=== PATIENT | female | born 1960 | race Caucasian/White ===

== ENCOUNTER 2020-01-16 15:08 | Outpatient (REF) | payer OTHER, SELFPAY ==
[2020-01-16 16:40] LABS: Alanine Aminotransferase 20 U/L (0-31); Albumin Level 4.2 g/dL (3.5-5.0); Alkaline Phosphatase 95 U/L (39-117); Anion Gap 13 (12-20); Aspartate Amino Transferase 17 U/L (5-31); Bilirubin Total 0.3 mg/dL (0.0-1.0); Blood Urea Nitrogen 18 mg/dL (9-16); Calcium 9.4 mg/dL (8.4-10.2); Carbon Dioxide 29 mmol/L (22-29); Chloride 103 mmol/L (96-108); Estimated Glomerular Filt Rate > 60; Glucose Random 152 mg/dL (60-115); Potassium 4.7 mmol/l (3.3-5.1); Sodium 140 mmol/L (135-145); Total Protein 7.1 g/dL (6.5-8.0)
== END 2020-01-16 15:09 | disposition home or self-care (01) ==
LOC: HO.LAB 15:08
PROVIDERS: PCP Internal Medicine; Visit Provider Internal Medicine Endocrinology, Diabetes & Metabolism
DX: E11.9 Type 2 diabetes mellitus without complications (principal)
CPT/HCPCS: 80053

== ENCOUNTER 2020-06-14 11:08 | Outpatient (REF) | payer OTHER, SELFPAY ==
[2020-06-14 13:44] LABS: MANUAL DIFF FLAG NO
[2020-06-14 13:49] LABS: Basophils Absolute Auto 0.1 X10*3/uL (0.0-0.2); Basophils Percent Auto 0.6 % (0-2); Eosinophils Absolute Auto 0.2 X10*3/uL (0.0-0.4); Eosinophils Percent Auto 2.8 % (0-4); Hematocrit 45.6 % (37-47); Hemoglobin 13.9 g/dl (12.0-16.0); Imm Gran Abs Auto 0.07 X10*3/uL (0.00-0.03); Imm Gran Pct Auto 0.8 % (0.0-0.4); Lymphocytes Absolute Auto 2.4 X10*3/uL (1.2-4.9); Mean Corpuscular HGB Conc 30.5 g/dl (31.0-35.0); Mean Corpuscular Volume 65.7 fL (80-98); Mean Platelet Volume 10.5 fL (9.4-12.3); Monocytes Absolute Auto 0.5 X10*3/uL (0.1-1.2); Monocytes Percent Auto 5.8 % (2-11); Neutrophils Absolute Auto 5.4 X10*3/uL (2.0-8.3); Platelet Count 256 X10*3/uL (160-400); Red Blood Count 6.94 X10*6/uL (4.20-5.50); Red Cell Distribution Width 18.1 % (11.0-16.0); White Blood Count 8.7 X10*3/uL (4.8-10.8)
[2020-06-14 13:58] LABS: Estimated Average Glucose 160 mg/dL; Hemoglobin A1c % 7.2 %
[2020-06-14 14:02] LABS: Glucose Urine UA >=1000 MG/DL (NEG); Leukocyte Esterase Urine NEG (NEG); Nitrite Urine NEG (NEG); Specific Gravity - Urine 1.025 (1.005-1.025); Urine Blood NEG (NEG); Urine Ketones NEG (NEG); Urine Protein NEG (NEG-TRACE)
[2020-06-14 14:15] LABS: Creatinine Urine 54.13 mg/dL; Microalbum/Creatinine Ratio Ur 16.6 ug/mg cr
[2020-06-14 14:16] LABS: Appearance Urine HAZY; Color Urine YELLOW
[2020-06-14 14:17] LABS: Alanine Aminotransferase 15 U/L (0-31); Alkaline Phosphatase 93 U/L (39-117); Anion Gap 13 (12-20); Aspartate Amino Transferase 14 U/L (5-31); Bilirubin Total 0.4 mg/dL (0.0-1.0); Blood Urea Nitrogen 20 mg/dL (9-16); Calcium 8.9 mg/dL (8.4-10.2); Carbon Dioxide 29 mmol/L (22-29); Chloride 104 mmol/L (96-108); Cholesterol 137 mg/dL; Estimated Glomerular Filt Rate > 60; Glucose Fasting 113 mg/dL (60-99); HDL Cholesterol 42 mg/dL; LDL Cholesterol Calculated 81 mg/dl; Potassium 4.3 mmol/L (3.3-5.1); Sodium 142 mmol/L (135-145); Total Protein 6.9 g/dL (6.5-8.0); Triglycerides 74 mg/dL
[2020-06-14 14:28] LABS: RBC Urine 0 /HPF (0); Renal Epithelial Cells Urine 2+ /LPF; Squamous Epithelial Cell Urine 1+ /LPF
[2020-06-14 14:39] LABS: TSH reflex Free T4 0.61 uIU/mL (0.32-4.0)
== END 2020-06-14 11:09 | disposition home or self-care (01) ==
LOC: HO.10HDL 11:08
PROVIDERS: Visit Provider Internal Medicine
DX: E11.9 Type 2 diabetes mellitus without complications (principal); E78.00 Pure hypercholesterolemia, unspecified; K21.9 Gastro-esophageal reflux disease without esophagitis; E66.01 Morbid (severe) obesity due to excess calories
CPT/HCPCS: 36415; 80053; 80061; 81001; 82043; 83036; 84443; 85025; 87086

== ENCOUNTER → 2020-07-05 13:24 | Outpatient (BNVA) | payer OTHER, SELFPAY | PROVIDERS: PCP Internal Medicine; Visit Provider Internal Medicine Endocrinology, Diabetes & Metabolism | DX: E11.29 Type 2 diabetes mellitus with other diabetic kidney complication (principal); E11.21 Type 2 diabetes mellitus with diabetic nephropathy; Z79.4 Long term (current) use of insulin; R80.9 Proteinuria, unspecified; E78.5 Hyperlipidemia, unspecified; E66.01 Morbid (severe) obesity due to excess calories; Z68.41 Body mass index [BMI] 40.0-44.9, adult | CPT/HCPCS: 82947 ==

== ENCOUNTER → 2020-10-27 10:49 | Outpatient (BNVA) | payer OTHER, SELFPAY | PROVIDERS: PCP Internal Medicine; Visit Provider Internal Medicine Endocrinology, Diabetes & Metabolism | DX: E11.21 Type 2 diabetes mellitus with diabetic nephropathy (principal); E11.29 Type 2 diabetes mellitus with other diabetic kidney complication; E66.01 Morbid (severe) obesity due to excess calories; E78.5 Hyperlipidemia, unspecified; E78.00 Pure hypercholesterolemia, unspecified; G47.33 Obstructive sleep apnea (adult) (pediatric); R80.9 Proteinuria, unspecified; Z68.41 Body mass index [BMI] 40.0-44.9, adult; Z79.4 Long term (current) use of insulin; Z79.899 Other long term (current) drug therapy; Z87.891 Personal history of nicotine dependence | CPT/HCPCS: 82947 ==

== ENCOUNTER 2020-11-01 11:09 | Outpatient (REF) | payer OTHER, SELFPAY ==
[2020-11-01 13:26] LABS: MANUAL DIFF FLAG NO
[2020-11-01 13:36] LABS: Basophils Percent Auto 0.5 % (0-2); Eosinophils Absolute Auto 0.3 X10*3/uL (0.0-0.4); Eosinophils Percent Auto 3.4 % (0-4); Hematocrit 46.4 % (37-47); Hemoglobin 13.7 g/dl (12.0-16.0); Imm Gran Abs Auto 0.09 X10*3/uL (0.00-0.03); Imm Gran Pct Auto 1.1 % (0.0-0.4); Lymphocytes Absolute Auto 2.2 X10*3/uL (1.2-4.9); Lymphocytes Percent Auto 28.1 % (20-40); Mean Corpuscular HGB Conc 29.5 g/dl (31.0-35.0); Mean Corpuscular Hemoglobin 19.5 pg (27.0-33.0); Mean Corpuscular Volume 65.9 fL (80-98); Mean Platelet Volume 10.5 fL (9.4-12.3); Monocytes Absolute Auto 0.5 X10*3/uL (0.1-1.2); Monocytes Percent Auto 6.6 % (2-11); Neutrophils Absolute Auto 4.8 X10*3/uL (2.0-8.3); Neutrophils Percent Auto 60.3 % (45-73); Platelet Count 267 X10*3/uL (160-400); Red Blood Count 7.04 X10*6/uL (4.20-5.50); Red Cell Distribution Width 18.3 % (11.0-16.0); White Blood Count 7.9 X10*3/uL (4.8-10.8)
[2020-11-01 13:44] LABS: Estimated Average Glucose 157 mg/dL; Hemoglobin A1c % 7.1 %
[2020-11-01 13:50] LABS: Alanine Aminotransferase 15 U/L (0-31); Albumin Level 3.8 g/dL (3.5-5.0); Alkaline Phosphatase 83 U/L (39-117); Anion Gap 13 (12-20); Aspartate Amino Transferase 15 U/L (5-31); Bilirubin Total 0.5 mg/dL (0.0-1.0); Blood Urea Nitrogen 19 mg/dL (9-16); Calcium 9.2 mg/dL (8.4-10.2); Carbon Dioxide 28 mmol/L (22-29); Chloride 106 mmol/L (96-108); Cholesterol 158 mg/dL; Estimated Glomerular Filt Rate > 60; Glucose Fasting 134 mg/dL (60-99); HDL Cholesterol 41 mg/dL; LDL Cholesterol Calculated 104 mg/dl; Potassium 4.4 mmol/L (3.3-5.1); Sodium 143 mmol/L (135-145); Total Protein 6.7 g/dL (6.5-8.0); Triglycerides 65 mg/dL
[2020-11-01 14:11] LABS: TSH reflex Free T4 0.76 uIU/mL (0.32-4.0)
[2020-11-01 14:39] LABS: Glucose Urine UA >=1000 MG/DL (NEG); Leukocyte Esterase Urine NEG (NEG); Nitrite Urine NEG (NEG); PH 5.5 (5.0-8.0); Specific Gravity - Urine 1.025 (1.005-1.025); Urine Blood NEG (NEG); Urine Ketones NEG (NEG); Urine Protein NEG (NEG-TRACE)
[2020-11-01 14:47] LABS: Appearance Urine CLEAR; Color Urine YELLOW
[2020-11-01 15:33] LABS: RBC Urine 0-2 /HPF (0); Squamous Epithelial Cell Urine 4+ /LPF
== END 2020-11-01 11:10 | disposition home or self-care (01) ==
LOC: HO.10HDL 11:09
PROVIDERS: Visit Provider Internal Medicine
DX: E78.00 Pure hypercholesterolemia, unspecified (principal); E11.9 Type 2 diabetes mellitus without complications; E66.9 Obesity, unspecified
CPT/HCPCS: 36415; 80053; 80061; 81001; 81003; 83036; 84443; 85025

== ENCOUNTER 2021-04-04 11:19 | Outpatient (REF) | payer OTHER, SELFPAY ==
[2021-04-04 13:27] LABS: MANUAL DIFF FLAG NO
[2021-04-04 13:32] LABS: Basophils Absolute Auto 0.1 X10*3/uL (0.0-0.2); Basophils Percent Auto 0.6 % (0-2); Eosinophils Absolute Auto 0.3 X10*3/uL (0.0-0.4); Eosinophils Percent Auto 4.2 % (0-4); Hematocrit 43.2 % (37.0-47.0); Hemoglobin 13.1 g/dl (12.0-16.0); Imm Gran Abs Auto 0.08 X10*3/uL (0.00-0.03); Lymphocytes Absolute Auto 2.2 X10*3/uL (1.2-4.9); Lymphocytes Percent Auto 26.8 % (20-40); Mean Corpuscular HGB Conc 30.3 g/dl (31.0-35.0); Mean Platelet Volume 10.1 fL (9.4-12.3); Monocytes Absolute Auto 0.5 X10*3/uL (0.1-1.2); Monocytes Percent Auto 6.2 % (2-11); Neutrophils Percent Auto 61.2 % (45-73); Platelet Count 272 X10*3/uL (160-400); Red Blood Count 6.55 X10*6/uL (4.20-5.50); Red Cell Distribution Width 17.2 % (11.0-16.0); White Blood Count 8.1 X10*3/uL (4.8-10.8)
[2021-04-04 13:35] LABS: Appearance Urine HAZY; Color Urine YELLOW; Glucose Urine UA NEG (NEG); Leukocyte Esterase Urine NEG (NEG); Nitrite Urine NEG (NEG); Specific Gravity - Urine 1.025 (1.005-1.025); Urine Blood NEG (NEG); Urine Ketones NEG (NEG); Urine Protein NEG (NEG-TRACE)
[2021-04-04 13:40] LABS: Estimated Average Glucose 157 mg/dL; Hemoglobin A1c % 7.1 %
[2021-04-04 13:42] LABS: Alanine Aminotransferase 19 U/L (0-31); Albumin Level 3.8 g/dL (3.5-5.0); Alkaline Phosphatase 79 U/L (39-117); Anion Gap 12 (12-20); Aspartate Amino Transferase 16 U/L (5-31); Bilirubin Total 0.6 mg/dL (0.0-1.0); Blood Urea Nitrogen 14 mg/dL (9-16); Calcium 9.3 mg/dL (8.4-10.2); Carbon Dioxide 30 mmol/L (22-29); Chloride 102 mmol/L (96-108); Cholesterol 147 mg/dL; Estimated Glomerular Filt Rate > 60; Glucose Fasting 149 mg/dL (60-99); HDL Cholesterol 40 mg/dL; LDL Cholesterol Calculated 89 mg/dl; Potassium 4.2 mmol/L (3.3-5.1); Sodium 140 mmol/L (135-145); Total Protein 6.6 g/dL (6.5-8.0); Triglycerides 93 mg/dL
[2021-04-04 13:45] LABS: Creatinine Urine 87.34 mg/dL
== END 2021-04-04 11:20 | disposition home or self-care (01) ==
LOC: HO.10HDL 11:19
PROVIDERS: Visit Provider Internal Medicine
DX: E11.9 Type 2 diabetes mellitus without complications (principal); I10 Essential (primary) hypertension; E78.00 Pure hypercholesterolemia, unspecified
CPT/HCPCS: 36415; 80053; 80061; 81003; 82043; 83036; 84443; 85025

== ENCOUNTER 2021-08-03 11:31 | Outpatient (REF) | payer OTHER, SELFPAY ==
[2021-08-03 12:57] LABS: MANUAL DIFF FLAG NO
[2021-08-03 13:10] LABS: Basophils Absolute Auto 0.1 X10*3/uL (0.0-0.2); Basophils Percent Auto 0.6 % (0-2); Eosinophils Absolute Auto 0.3 X10*3/uL (0.0-0.4); Eosinophils Percent Auto 3.4 % (0-4); Hematocrit 45.3 % (37.0-47.0); Hemoglobin 13.7 g/dl (12.0-16.0); Imm Gran Abs Auto 0.05 X10*3/uL (0.00-0.03); Imm Gran Pct Auto 0.6 % (0.0-0.4); Lymphocytes Absolute Auto 2.3 X10*3/uL (1.2-4.9); Lymphocytes Percent Auto 29.8 % (20-40); Mean Corpuscular HGB Conc 30.2 g/dl (31.0-35.0); Mean Corpuscular Hemoglobin 19.9 pg (27.0-33.0); Mean Corpuscular Volume 65.9 fL (80.0-98.0); Monocytes Absolute Auto 0.6 X10*3/uL (0.1-1.2); Monocytes Percent Auto 7.7 % (2-11); Neutrophils Absolute Auto 4.5 x10*3/uL (2.0-8.3); Neutrophils Percent Auto 57.9 % (45-73); Platelet Count 272 X10*3/uL (160-400); Red Blood Count 6.87 X10*6/uL (4.20-5.50); White Blood Count 7.8 X10*3/uL (4.8-10.8)
[2021-08-03 13:16] LABS: Alanine Aminotransferase 17 U/L (0-31); Albumin Level 3.9 g/dL (3.5-5.0); Alkaline Phosphatase 77 U/L (39-117); Anion Gap 11 (12-20); Aspartate Amino Transferase 16 U/L (5-31); Bilirubin Total 0.5 mg/dL (0.0-1.0); Blood Urea Nitrogen 16 mg/dL (9-16); Calcium 9.3 mg/dL (8.4-10.2); Carbon Dioxide 30 mmol/L (22-29); Chloride 105 mmol/L (96-108); Cholesterol 146 mg/dL; Estimated Glomerular Filt Rate > 60; Glucose Fasting 157 mg/dL (60-99); HDL Cholesterol 39 mg/dL; LDL Cholesterol Calculated 93 mg/dl; Potassium 4.6 mmol/L (3.3-5.1); Sodium 141 mmol/L (135-145); Total Protein 6.8 g/dL (6.5-8.0); Triglycerides 74 mg/dL
[2021-08-03 13:19] LABS: Estimated Average Glucose 163 mg/dL; Hemoglobin A1c % 7.3 %
[2021-08-03 13:24] LABS: Appearance Urine CLEAR; Color Urine YELLOW; Glucose Urine UA >=1000 MG/DL (NEG); Leukocyte Esterase Urine NEG (NEG); Nitrite Urine NEG (NEG); Specific Gravity - Urine 1.015 (1.005-1.025); UACC Culture Trigger NO; Urine Blood 3+ (NEG); Urine Ketones NEG (NEG); Urine Protein NEG (NEG-TRACE)
[2021-08-03 13:36] LABS: Vitamin D 25-OH Total 38.3 ng/mL (>30)
[2021-08-03 14:45] LABS: Renal Epithelial Cells Urine 1+ /LPF; Squamous Epithelial Cell Urine 1+ /LPF
[2021-08-03 14:48] LABS: Oval Fat Bodies Urine NOTED
== END 2021-08-03 11:32 | disposition home or self-care (01) ==
LOC: HO.10HDL 11:31
PROVIDERS: Visit Provider Internal Medicine
DX: E78.00 Pure hypercholesterolemia, unspecified (principal); E11.9 Type 2 diabetes mellitus without complications; E55.9 Vitamin D deficiency, unspecified; I10 Essential (primary) hypertension
CPT/HCPCS: 36415; 80053; 80061; 81001; 81003; 82306; 83036; 84443; 85025

== ENCOUNTER 2021-09-26 16:35 | Outpatient (REF) | payer OTHER, SELFPAY ==
--- NOTE | ~2021-09-26 | XR_ITS ---
EXAMINATION: XR LUMBOSACRAL SPINE CLINICAL INFORMATION: Low back pain status post fall. COMPARISON: CT scan of the abdomen and pelvis dated 07/06/2016. TECHNIQUE: Three views of the lumbosacral spine. FINDINGS: There is normal lumbar lordosis and spinal alignment. Mild to moderate multilevel marginal osteophyte formation is seen. There is no acute fracture. The soft tissues are unremarkable. Multiple surgical clips overlie the pelvis. XR/XR lumbar spine 2-3V IMPRESSION: Mild to moderate multilevel degenerative changes without acute abnormality.
== END 2021-09-26 16:36 | disposition home or self-care (01) ==
LOC: HO.HMGCX 16:35
PROVIDERS: PCP Internal Medicine
DX: M54.50 Low back pain, unspecified (principal); W19.XXXA Unspecified fall, initial encounter
CPT/HCPCS: 72100

== ENCOUNTER 2021-11-15 13:52 | Outpatient (RCR) | payer OTHER, SELFPAY ==
[2021-11-15 14:04] VITALS: BP 122/60; PULSE 97; O2SAT 99
== END 2021-12-20 14:44 | disposition home or self-care (01) ==
LOC: HO.PTWFD 13:52
PROVIDERS: PCP Internal Medicine; Visit Provider Internal Medicine
DX: M54.50 Low back pain, unspecified (principal)
CPT/HCPCS: 97110; 97162; 97535

== ENCOUNTER 2022-01-24 09:46 | Outpatient (REF) | payer OTHER, SELFPAY ==
[2022-01-24 11:18] LABS: MANUAL DIFF FLAG NO
[2022-01-24 11:26] LABS: Basophils Absolute Auto 0.1 X10*3/uL (0.0-0.2); Basophils Percent Auto 0.6 % (0-2); Eosinophils Absolute Auto 0.2 X10*3/uL (0.0-0.4); Eosinophils Percent Auto 2.3 % (0-4); Hematocrit 40.9 % (37.0-47.0); Hemoglobin 12.6 g/dl (12.0-16.0); Imm Gran Abs Auto 0.09 X10*3/uL (0.00-0.03); Imm Gran Pct Auto 1.1 % (0.0-0.4); Lymphocytes Absolute Auto 1.9 X10*3/uL (1.2-4.9); Lymphocytes Percent Auto 22.5 % (20-40); Mean Corpuscular HGB Conc 30.8 g/dl (31.0-35.0); Mean Corpuscular Hemoglobin 20.1 pg (27.0-33.0); Mean Corpuscular Volume 65.2 fL (80.0-98.0); Mean Platelet Volume 10.6 fL (9.4-12.3); Monocytes Absolute Auto 0.6 X10*3/uL (0.1-1.2); Monocytes Percent Auto 6.5 % (2-11); Neutrophils Absolute Auto 5.7 x10*3/uL (2.0-8.3); Platelet Count 261 X10*3/uL (160-400); Red Blood Count 6.27 X10*6/uL (4.20-5.50); White Blood Count 8.4 X10*3/uL (4.8-10.8)
[2022-01-24 11:32] LABS: Estimated Average Glucose 177 mg/dL; Hemoglobin A1c % 7.8 %
[2022-01-24 11:59] LABS: Alanine Aminotransferase 16 U/L (0-31); Albumin Level 4.1 g/dL (3.5-5.0); Alkaline Phosphatase 81 U/L (39-117); Anion Gap 15 (12-20); Aspartate Amino Transferase 15 U/L (5-31); Bilirubin Total 0.6 mg/dL (0.0-1.0); Blood Urea Nitrogen 18 mg/dL (9-16); Calcium 9.4 mg/dL (8.4-10.2); Carbon Dioxide 29 mmol/L (22-29); Chloride 101 mmol/L (96-108); Cholesterol 157 mg/dL; Estimated Glomerular Filt Rate > 60; Glucose Fasting 161 mg/dL (60-99); HDL Cholesterol 41 mg/dL; LDL Cholesterol Calculated 97 mg/dl; Potassium 4.4 mmol/L (3.3-5.1); Sodium 141 mmol/L (135-145); Triglycerides 95 mg/dL
[2022-01-24 12:07] LABS: TSH reflex Free T4 1.23 uIU/mL (0.32-4.0); Vitamin D 25-OH Total 33.9 ng/mL (>30)
[2022-01-24 12:14] LABS: Urine Cytology See Pathology rpt
[2022-01-24 12:33] LABS: Appearance Urine Clear; Color Urine Yellow; Glucose Urine UA Negative (Negative); Leukocyte Esterase Urine Small (1+) (Negative); Nitrite Urine Negative (Negative); UMIC TRIGGER UACC YES; Urine Blood Negative (Negative); Urine Ketones Negative (Negative); Urine Protein Negative (Neg-Trace)
[2022-01-24 13:12] LABS: Creatinine Urine 43.89 mg/dL; Microalbumin Urine < 5.0 mg/L
[2022-01-24 13:32] LABS: Bacteria Urine None Seen (None Seen); Hyaline Casts Urine 0-2 /LPF (0-2); RBC Urine 0-2 /HPF (0-2); UACC Culture Trigger YES; WBC Urine 0-5 /HPF (0-5)
== END 2022-01-24 09:47 | disposition home or self-care (01) ==
LOC: HO.10HDL 09:46
PROVIDERS: Absent Provider Internal Medicine Endocrinology, Diabetes & Metabolism; Visit Provider Internal Medicine
DX: E78.00 Pure hypercholesterolemia, unspecified (principal); I10 Essential (primary) hypertension; R31.1 Benign essential microscopic hematuria; E55.9 Vitamin D deficiency, unspecified; E11.9 Type 2 diabetes mellitus without complications
CPT/HCPCS: 36415; 80053; 80061; 81001; 82043; 82306; 83036; 84443; 85025; 87086; 87147; 88112

== ENCOUNTER 2022-02-14 16:03 | Outpatient (REF) | payer OTHER, SELFPAY ==
--- NOTE | ~2022-02-14 | XR_ITS ---
EXAMINATION: XR CHEST CLINICAL INFORMATION: Cough. COMPARISON: None TECHNIQUE: 2 views of the chest were obtained. FINDINGS: No significant abnormality is noted involving the heart, lungs, mediastinum, bony thorax or soft tissues. XR/XR chest 2V IMPRESSION: No acute cardiopulmonary process.
== END 2022-02-14 16:04 | disposition home or self-care (01) ==
LOC: HO.XRAY 16:03
PROVIDERS: PCP Internal Medicine; Visit Provider Internal Medicine
DX: R05.9 Cough, unspecified (principal)
CPT/HCPCS: 71046

== ENCOUNTER 2022-06-01 11:37 | Outpatient (REF) | payer OTHER, SELFPAY ==
[2022-06-01 14:35] LABS: Estimated Average Glucose 214 mg/dL; Hemoglobin A1c % 9.1 %
[2022-06-01 15:15] LABS: Alanine Aminotransferase 15 U/L (0-31); Albumin Level 3.8 g/dL (3.5-5.0); Alkaline Phosphatase 87 U/L (39-117); Anion Gap 15 (12-20); Aspartate Amino Transferase 14 U/L (5-31); Bilirubin Total 0.5 mg/dL (0.0-1.0); Blood Urea Nitrogen 14 mg/dL (9-16); Calcium 9.2 mg/dL (8.4-10.2); Carbon Dioxide 29 mmol/L (22-29); Chloride 104 mmol/L (96-108); Cholesterol 162 mg/dL; Estimated Glomerular Filt Rate > 60; Glucose Fasting 190 mg/dL (60-99); HDL Cholesterol 36 mg/dL; LDL Cholesterol Calculated 113 mg/dl; Potassium 4.7 mmol/L (3.3-5.1); Sodium 143 mmol/L (135-145); Total Protein 6.7 g/dL (6.5-8.0); Triglycerides 67 mg/dL
== END 2022-06-01 11:38 | disposition home or self-care (01) ==
LOC: HO.10HDL 11:37
PROVIDERS: Visit Provider Internal Medicine
DX: E78.00 Pure hypercholesterolemia, unspecified (principal); E11.9 Type 2 diabetes mellitus without complications
CPT/HCPCS: 36415; 80053; 80061; 83036

== ENCOUNTER 2022-08-25 11:46 | Outpatient (REF) | payer OTHER, SELFPAY ==
[2022-08-25 13:24] LABS: MANUAL DIFF FLAG NO
[2022-08-25 13:32] LABS: Basophils Absolute Auto 0.1 X10*3/uL (0.0-0.2); Basophils Percent Auto 0.6 % (0-2); Eosinophils Absolute Auto 0.2 X10*3/uL (0.0-0.4); Eosinophils Percent Auto 2.6 % (0-4); Hematocrit 43.5 % (37.0-47.0); Hemoglobin 13.3 g/dl (12.0-16.0); Imm Gran Abs Auto 0.09 X10*3/uL (0.00-0.03); Imm Gran Pct Auto 1.1 % (0.0-0.4); Lymphocytes Absolute Auto 2.3 X10*3/uL (1.2-4.9); Lymphocytes Percent Auto 27.5 % (20-40); Mean Corpuscular HGB Conc 30.6 g/dl (31.0-35.0); Mean Corpuscular Hemoglobin 19.8 pg (27.0-33.0); Mean Platelet Volume 10.4 fL (9.4-12.3); Monocytes Absolute Auto 0.5 X10*3/uL (0.1-1.2); Monocytes Percent Auto 6.6 % (2-11); Neutrophils Absolute Auto 5.1 x10*3/uL (2.0-8.3); Neutrophils Percent Auto 61.6 % (45-73); Platelet Count 272 X10*3/uL (160-400); Red Blood Count 6.71 X10*6/uL (4.20-5.50); Red Cell Distribution Width 17.2 % (11.0-16.0); White Blood Count 8.2 X10*3/uL (4.8-10.8)
[2022-08-25 13:32] LABS: Appearance Urine Hazy; Color Urine Yellow; Glucose Urine UA Negative (Negative); Leukocyte Esterase Urine Small (1+) (Negative); Nitrite Urine Negative (Negative); Specific Gravity - Urine 1.025 (1.005-1.025); UMIC TRIGGER UACC YES; Urine Blood Trace (Negative); Urine Ketones Negative (Negative); Urine Protein Negative (Neg-Trace)
[2022-08-25 13:33] LABS: Mean Corpuscular Volume 64.8 fL (80.0-98.0)
[2022-08-25 13:40] LABS: UACC Culture Trigger YES
[2022-08-25 13:41] LABS: Bacteria Urine None Seen (None Seen); Hyaline Casts Urine 0-2 /LPF (0-2); RBC Urine 0-2 /HPF (0-2); Renal Epithelial Cells Urine Present
[2022-08-25 13:50] LABS: Estimated Average Glucose 177 mg/dL; Hemoglobin A1c % 7.8 %
[2022-08-25 13:53] LABS: Creatinine Urine 131.24 mg/dL; Microalbum/Creatinine Ratio Ur 24.3 ug/mg cr
[2022-08-25 13:55] LABS: Alanine Aminotransferase 15 U/L (0-31); Albumin Level 3.8 g/dL (3.5-5.0); Alkaline Phosphatase 79 U/L (39-117); Anion Gap 14 (12-20); Aspartate Amino Transferase 13 U/L (5-31); Bilirubin Total 0.5 mg/dL (0.0-1.0); Blood Urea Nitrogen 18 mg/dL (9-16); Calcium 9.3 mg/dL (8.4-10.2); Carbon Dioxide 28 mmol/L (22-29); Chloride 106 mmol/L (96-108); Cholesterol 162 mg/dL; Estimated Glomerular Filt Rate > 60; Glucose Fasting 169 mg/dL (60-99); HDL Cholesterol 36 mg/dL; LDL Cholesterol Calculated 113 mg/dl; Potassium 4.6 mmol/L (3.3-5.1); Sodium 143 mmol/L (135-145); Total Protein 6.7 g/dL (6.5-8.0); Triglycerides 68 mg/dL
[2022-08-25 14:10] LABS: TSH reflex Free T4 0.81 uIU/mL (0.32-4.0); Vitamin D 25-OH Total 36.3 ng/mL (>30)
== END 2022-08-25 11:47 | disposition home or self-care (01) ==
LOC: HO.10HDL 11:46
PROVIDERS: Visit Provider Internal Medicine
DX: E78.00 Pure hypercholesterolemia, unspecified (principal); E11.9 Type 2 diabetes mellitus without complications; E55.9 Vitamin D deficiency, unspecified; I10 Essential (primary) hypertension; R82.90 Unspecified abnormal findings in urine
CPT/HCPCS: 36415; 80053; 80061; 81001; 82043; 82306; 83036; 84443; 85025; 87086

== ENCOUNTER 2022-08-31 13:47 | Outpatient (REF) | payer OTHER, SELFPAY ==
--- NOTE | ~2022-08-31 | US_ITS ---
EXAMINATION: US RETROPERITONEAL LIMITED (RENAL ONLY) CLINICAL INFORMATION: Other microscopic hematuria. COMPARISON: CT abdomen and pelvis without contrast 07/06/2016. TECHNIQUE: Real-time imaging of the kidneys. FINDINGS: RIGHT KIDNEY: 11.5 x 5.1 x 5.6 cm (SAG x AP x TRV). The kidney is normal in size, contour, and echogenicity. Right renal parenchymal cortical scarring. No renal calculi or hydronephrosis. 2.2 cm benign-appearing renal cyst, no follow-up imaging recommended. LEFT KIDNEY: 12.1 x 6.1 x 6.1 cm (SAG x AP x TRV). The kidney is normal in size, contour, and echogenicity. Renal cortical thickness is normal. No calculi or focal parenchymal lesions. No hydronephrosis. US/US renal BI IMPRESSION: 1. No hydronephrosis or nephrolithiasis. 2. Right renal parenchymal cortical scarring.
== END 2022-08-31 13:48 | disposition home or self-care (01) ==
LOC: HO.HMGCX 13:47
PROVIDERS: PCP Internal Medicine; Visit Provider Internal Medicine
DX: R31.29 Other microscopic hematuria (principal)
CPT/HCPCS: 76775

== ENCOUNTER 2022-11-08 13:06 | Outpatient (AMB) | payer OTHER, SELFPAY ==
[2022-11-08 13:13] VITALS: BP 122/74; PULSE 92; O2SAT 97; BMI 44.5
--- NOTE | 2022-11-08 13:13 | A.OFFVIS_ITS ---
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 Pt reports that she was diagnosed with SELENE in 2008 and has been using CPAP. However, she does not use the CPAP regularly. It is not comfortable, having hard time using the mask, also feels the pressure is low, too. She did not have a repeat sleep study done. Pt reports that she gained about 30 lb since the last sleep study. She feels tired all day long. Pt's home care company is [employer]. Sleep questionnaire: Have you ever been diagnosed with a sleep disorder? SELENE, severe degree. Have you ever had a sleep study in the past? Yes, in 2008. Have you ever been treated for a sleep disorder? CPAP. Do you take medications for a sleep disorder? Ambien 10 mg occasionally. Do you snore? Yes. Do you wake up gasping at night? No. Do you have episodes of apneas? Yes. If yes, are they witnessed? Yes. Do you have episodes of nocturnal chest pain or dyspnea? No. Do you have difficulty initiating sleep? Yes, sometimes. Do you have difficulty maintaining sleep? Yes, sometimes. Do you wake up tired? Yes. Do you have headaches upon awakening? Yes, sometimes. Do you wake up with dry mouth or throat? Yes. Do you have GERD? Yes. Do you have nocturia? Yes. Do you have nocturnal leg cramps? No. Do you have symptoms of restless legs? No. Do you act out your dreams? No. Sleep hygiene questionnaire: What is your usual sleep routine? Usual bedtime is at 11 pm; Usual wake up time is at 8 am . Do you take naps? Yes, 15-20 min. Is your sleep environment cool, dark, and quiet? Yes. Do you exercise? Treadmill, twice a week for an hour. Do you take caffeine or other stimulants? No. Do you use electronics in bed? Yes. What is your work schedule? Random. Hypersomnolence questionnaire: Do you have daytime tiredness or fatigue? Yes. Do you easily fall asleep when inactive? Yes. Have you ever had episodes of sudden weakness? No. Have you ever had episodes of sudden weakness associated with strong emotions? No. 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) Paternal Aunt No problems noted. Maternal Uncle No problems noted. Mother Cardiovascular disease Liver cancer Breast cancer Father No problems noted. Maternal Aunt No problems noted. Brother Lung cancer Brain cancer Social History (Updated 11/08/22 @ 13:20 by Rosa Blum 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 Cognitive needs: No Hearing needs: No Vision needs: Yes Review of Systems Const All systems reviewed & are unremarkable except as noted in HPI and below ENT Reports Normal hearing present Neuro Reports Normal hearing present Physical Exam Vital Signs: Last Vital Signs Pulse 92 11/08/22 13:13 BP 122/74 11/08/22 13:13 Pulse Ox 97 11/08/22 13:13 Oxygen Delivery Method Room Air 11/08/22 13:13 BMI result Body Mass Index 44.5 Const General: cooperative Nutritional Appearance: obese Orientation/consciousness: patient oriented x3 HEENT Throat: Yes other (mallampati grade 4) Neck Neck: Yes full ROM and Yes supple Resp Effort & Inspection: normal respiratory effort and able to speak in complete sentences Neuro General: patient oriented x3, gait normal, moves all extremities and no focal motor deficits Cranial nerves: Yes Bilaterally intact EOM present, Yes Normal facial strength present, Yes Midline tongue present, Yes Symmetric palate elevation present, Yes Normal hearing present, Yes Ability to bilaterally rotate head present and Yes Ability to bilaterally elevate shoulders present Cognition (Neuro): normal cognition Gait exam (Neuro): Normal gait present Motor exam (neuro): 5/5 motor strength present throughout Psych Appearance: grossly normal Mental Status: mental status grossly normal Speech and movement: Normal speech and movement present Affect: normal affect Attitude: cooperative Assessment & Plan Assessment & Plan (1) Obstructive sleep apnea: Comment: The last sleep study was in 2008. Severe degree of sleep apnea. AHI was 72/hr and the oxygen esau was 82% Code(s): G47.33 - Obstructive sleep apnea (adult) (pediatric) (2) Morbid obesity with BMI of 40.0-44.9, adult: Code(s): E66.01 - Morbid (severe) obesity due to excess calories; Z68.41 - Body mass index [BMI] 40.0-44.9, adult Plan Pt is advised to undergo in lab sleep study to assess for sleep apnea. Will f/u with pt after study to discuss results and appropriate treatment options. Sleep hygiene education provided. Limit electronic use before bedtime. Wt reduction advised. Pt to call with any worsening concerns or questions. Orders: Orders RT PSG in-lab sleep study Today E11.21 - Type 2 diabetes mellitus with diabetic nephropathy, E66.01 - Morbid (severe) obesity due to excess calories, G47.00 - Insomnia, unspecified, G47.33 - Obstructive sleep apnea (adult) (pediatric), Z68.41 - Body mass index [BMI] 40.0-44.9, adult Coding Level of Care Code New Pt Level 4 (64362) Diagnoses Obstructive sleep apnea G47.33 Morbid obesity with BMI of 40.0-44.9, adult E66.01; Z68.41
== END 2022-11-08 13:55 | disposition home or self-care (01) ==
PROVIDERS: Visit Provider Nurse Practitioner Family
DX: G47.33 Obstructive sleep apnea (adult) (pediatric) (principal); E66.01 Morbid (severe) obesity due to excess calories; Z68.41 Body mass index [BMI] 40.0-44.9, adult
CPT/HCPCS: 99204

== ENCOUNTER → 2022-11-08 13:06 | Outpatient (BNVA) | payer OTHER, SELFPAY | PROVIDERS: Visit Provider Nurse Practitioner Family ==

== ENCOUNTER 2022-12-08 10:23 | Outpatient (REF) | payer OTHER, SELFPAY ==
[2022-12-08 10:42] LABS: MANUAL DIFF FLAG NO
[2022-12-08 10:52] LABS: Basophils Absolute Auto 0.1 X10*3/uL (0.0-0.2); Basophils Percent Auto 0.6 % (0-2); Eosinophils Absolute Auto 0.2 X10*3/uL (0.0-0.4); Eosinophils Percent Auto 2.6 % (0-4); Hematocrit 44.2 % (37.0-47.0); Hemoglobin 13.5 g/dl (12.0-16.0); Imm Gran Pct Auto 1.2 % (0.0-0.4); Lymphocytes Absolute Auto 2.2 X10*3/uL (1.2-4.9); Lymphocytes Percent Auto 25.9 % (20-40); Mean Corpuscular HGB Conc 30.5 g/dl (31.0-35.0); Mean Corpuscular Volume 65.4 fL (80.0-98.0); Mean Platelet Volume 9.7 fL (9.4-12.3); Monocytes Absolute Auto 0.6 X10*3/uL (0.1-1.2); Monocytes Percent Auto 7.3 % (2-11); Neutrophils Absolute Auto 5.3 x10*3/uL (2.0-8.3); Neutrophils Percent Auto 62.4 % (45-73); Platelet Count 261 X10*3/uL (160-400); Red Blood Count 6.76 X10*6/uL (4.20-5.50); Red Cell Distribution Width 17.8 % (11.0-16.0); White Blood Count 8.5 X10*3/uL (4.8-10.8)
[2022-12-08 11:13] LABS: Estimated Average Glucose 177 mg/dL; Hemoglobin A1c % 7.8 % (<6.0)
[2022-12-08 11:29] LABS: Alanine Aminotransferase 14 U/L (0-31); Alkaline Phosphatase 84 U/L (39-117); Anion Gap 14 (12-20); Aspartate Amino Transferase 14 U/L (5-31); Bilirubin Total 0.5 mg/dL (0.0-1.0); Blood Urea Nitrogen 23 mg/dL (9-16); Calcium 10.1 mg/dL (8.4-10.2); Carbon Dioxide 25 mmol/L (22-29); Chloride 104 mmol/L (96-108); Cholesterol 172 mg/dL (<200); Estimated Glomerular Filt Rate > 60; Glucose Fasting 207 mg/dL (60-99); HDL Cholesterol 41 mg/dL (>40); LDL Cholesterol Calculated 114 mg/dL (<100); Potassium 4.7 mmol/L (3.3-5.1); Sodium 138 mmol/L (135-145); Total Protein 7.3 g/dL (6.5-8.0); Triglycerides 85 mg/dL (<150)
[2022-12-08 11:46] LABS: TSH reflex Free T4 0.97 uIU/mL (0.32-4.0); Vitamin D 25-OH Total 38.8 ng/mL (>30)
[2022-12-08 11:56] LABS: Folate 6.4 ng/mL (> or = 4.0); Vitamin B12 441 pg/mL (200-900)
[2022-12-08 12:11] LABS: Urine Cytology See Pathology rpt
[2022-12-08 12:37] LABS: Appearance Urine Clear; Color Urine Yellow; Glucose Urine UA Negative (Negative); Leukocyte Esterase Urine Moderate (2+) (Negative); Nitrite Urine Negative (Negative); PH 5.5 (5.0-9.0); UMIC TRIGGER UACC YES; Urine Blood Negative (Negative); Urine Ketones Negative (Negative); Urine Protein Negative (Neg-Trace)
[2022-12-08 12:39] LABS: Bacteria Urine None Seen (None Seen); Hyaline Casts Urine 0-2 /LPF (0-2); RBC Urine 0-2 /HPF (0-2); UACC Culture Trigger YES
[2022-12-08 13:03] LABS: Microalbum/Creatinine Ratio Ur 13.5 ug/mg cr (<30)
== END 2022-12-08 10:24 | disposition home or self-care (01) ==
LOC: HO.LAB 10:23
PROVIDERS: PCP Internal Medicine; Visit Provider Internal Medicine
DX: E53.8 Deficiency of other specified B group vitamins (principal); E55.9 Vitamin D deficiency, unspecified; I10 Essential (primary) hypertension; E11.9 Type 2 diabetes mellitus without complications; R31.1 Benign essential microscopic hematuria; E78.00 Pure hypercholesterolemia, unspecified
CPT/HCPCS: 36415; 80053; 80061; 81001; 82043; 82306; 82570; 82607; 82746; 83036; 84443; 85025; 87086; 88112

== ENCOUNTER 2022-12-18 14:13 | Outpatient (AMB) | payer OTHER, SELFPAY ==
[2022-12-18 14:15] VITALS: BP 128/62; PULSE 84; O2SAT 99; BMI 43.7
--- NOTE | 2022-12-18 14:15 | MHC.PC.OV ---
Vital Signs 12/18/22 14:15 Height 5 ft Weight 224 lb BMI 43.7 BP 128/62 Blood Pressure Location Rt brachial Position Sitting Pulse 84 Pulse Source Pulse Oximeter Temp Source Skin Pulse Oximetry (%) 99 Oxygen Delivery Method Room Air Intake Visit Reasons: DM, hyperlipidemia, HTN, cervical cancer screen Rectangular Tank Cooper Required: No Allergies IVP dye Allergy (Mild, Uncoded 12/18/22 15:16) Nausea Medication List - Last Reconciled 12/18/22 by Salvatore Gramajo MD blood sugar diagnostic As directed flash glucose scanning reader (FreeStyle Tara 14 Day Acra) As directed flash glucose sensor (FreeStyle Tara 14 Day Sensor kit) every 14 days insulin glargine-lixisenatide 100 unit-33 mcg/mL (Soliqua 100/33) 26 units before breakfast and 26 units before dinner subcut .Twice a day; lorazepam Take 1 tablet 30 minutes before boarding plane (as needed for anxiety). May repeat x 1 dose after 10 to 15 minutes if needed. 2 days metformin ER 1,500 mg PO BID omeprazole 40 mg PO DAILY pen needle, diabetic (BD Brie 2nd Gen Pen Needle) Twice a day pravastatin 10 mg PO BEDTIME 90 days zolpidem 10 mg PO BEDTIME PRN 30 days Tobacco use date assessed: 12/18/22 Dental Screening Dental Screen Date: 12/18/22 Did you have a dental visit in the last 12 months?: Yes Did you have a dental problem in the last 6 months where you did not have access to dental care?: No Was dental information given to patient?: Patient has dentist HPI DM, hyperlipidemia, HTN, cervical cancer screen HPI Details Patient comes in today for her follow up visit States that she feels okay Still has recurrent low back pain but states that her back pain is mostly manageable Has noticed on and off swelling over her ankles and feet lately; notes (+) pain and discomfort when the swelling occurs and that her symptoms tend to occur more often when she is up on her feet a lot She denies any headaches or dizziness Denies any chest pains, no SOB No nausea/vomiting, no abdominal pain No change in bowel habits noted Would like to get Rx for Lorazepam - states that she is due to fly out to [place] next month with her and is having a lot of anxiety regarding the long plane flight Had her follow up labs done about 10 days ago - to discuss her results Adds that she had to reschedule her previous appt with Dr. Biswas as she was out of town at the time of her appt [facility] Medical History Alpha thalassemia trait Diabetic nephropathy associated with type 2 diabetes mellitus residential (current) use of insulin Morbid obesity with BMI of 40.0-44.9, adult Insomnia GERD without esophagitis Obstructive sleep apnea Thalassemia trait History of left breast cancer (~2000) Pure hypercholesterolemia Diabetes mellitus Dyslipidemia Diabetes type 2, controlled Surgical History Hx of ventral hernia repair (~2003) S/P bilateral oophorectomy (~2002) S/P radical vaginal hysterectomy (~1989) Family History Paternal Aunt No problems noted. Maternal Uncle No problems noted. Mother Cardiovascular disease Liver cancer Breast cancer Father No problems noted. Maternal Aunt No problems noted. 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 1. Little interest or pleasure in doing things: not at all 2. Feeling down, depressed, or hopeless: not at all 3. Trouble falling or staying asleep, or sleeping too much: not at all 4. Feeling tired or having little energy: not at all 5. Poor appetite or overeating: not at all 6. Feeling bad about yourself - or that you are a failure or have let yourself or your family down: not at all 7. Trouble concentrating on things, such as reading the newspaper or watching television: not at all 8. Moving or speaking so slowly that other people could have noticed. Or the opposite - being so fidgety or restless that you have been moving around a lot more than usual: not at all 9. Thoughts that you would be better off or of hurting yourself in some way: not at all Total score: 0 Depression Screening Interpretation: Negative 40634 - PHQ-9 Billing: Yes Source: Developed by Drs. Jimmy Richey, Angelica Calderon, Hernnadez Gold and colleagues, with an educational joi from [employer]. Thrive Questionnaire Date Thrive assessed: 08/28/22 AUDIT C Alcohol Use Questionnaire (AUDIT-C) 1. How often do you have a drink containing alcohol?: Never 3. How often do you have six or more drinks on one occasion?: Never Total Score: 0 Score Reviewed/Action Taken: Yes ANUPAMA-7 AMB Questionnaire ANUPAMA-7 Date ANUPAMA - 7 assessed: 08/28/22 Source: Developed by Drs. Jimmy Richey, Angelica Calderon, Hernandez Gold and colleagues, with an educational joi from [employer]. Review of Systems Const Reports difficulty sleeping, Reports fatigue, Denies fever(s) and Denies headache(s) ENT Denies dysphagia, Denies dizziness, Denies otalgia, Denies headache(s), Denies odynophagia and Denies sore throat Card Denies chest pain, Denies palpitations and Denies dyspnea Resp Denies chest congestion, Denies cough and Denies dyspnea GI Denies abdominal pain, Denies constipation, Denies dysphagia, Denies heartburn, Denies diarrhea, Denies nausea, Denies odynophagia and Denies vomiting Denies difficulty voiding, Denies nocturia and Denies dysuria Musc Reports back pain (over the lower back - on and off) Neuro Denies dizziness and Denies headache(s) Endo Reports fatigue and Denies palpitations Lg/Lymph Details: (+) on and off swelling and pain over her ankles and feet lately Physical exam (Primary Care) Vital Signs: Last Vital Signs Pulse 84 12/18/22 14:15 BP 128/62 12/18/22 14:15 Pulse Ox 99 12/18/22 14:15 Oxygen Delivery Method Room Air 12/18/22 14:15 BMI result Body Mass Index 43.7 Tobacco/Smoking Status: Tobacco use Status Tobacco use date assessed 12/18/22 12/18/22 14:16 Patient Tobacco Use Status Former Tobacco user 12/18/22 14:16 Tobacco use type Cigarette 12/18/22 14:16 e-Cigarette/Vaping Use Never Used 12/18/22 14:16 PHQ-9: PHQ-9 Score PHQ-9: Total score 0 12/18/22 19:19 Depression Screening Interpretation: Negative Thrive Assessment: Date of Thrive Assessment Date Thrive assessed 08/28/22 12/18/22 14:16 Const General: no acute distress and alert HENMT Ears: TM's normal bilaterally and EAC's normal Throat: Yes posterior oropharynx normal and Yes tonsils normal (no TP congestion noted) Neck Neck: Yes no lymphadenopathy and Yes supple Resp Auscultation: clear to auscultation bilaterally, no rales and no wheezes Cardio Rate: regular rate Rhythm: regular rhythm Heart sounds: no murmurs GI Palpation (GI): Soft to palpation and nontender Auscultation: normal bowel sounds Back/Spine/Pelvis Thoracic/Lumbar Spine: lumbar spinal tenderness Extrem Other: (+) prominent patches of varicosities noted over both lower legs General: No clubbing, No cyanosis and Yes edema (1+ bipedal edema) Assessment and Plan Assessment & Plan (1) Diabetes mellitus: Code(s): E11.9 - Type 2 diabetes mellitus without complications Qualifiers: Diabetes mellitus complication status: without complication Diabetes mellitus intermediate accountant insulin use: without intermediate use Diabetes mellitus type: type 2 Qualified Code(s): E11.9 - Type 2 diabetes mellitus without complications Plan: HgbA1c was at 7.8% on her labs done a few days ago (was at 9.1% previously) - goal is < 7.0% Reinforced diabetic diet Continue Metformin ER 1000 mg BID and Soliqua 100-33 units-mcg/ml 24 units in AM and 20 units in PM; Jardiance was discontinued by endocrinology a few months ago due to frequent yeast infections Was seeing endocrinology (Dr. Rosenthal) in the past; she has been referred back to endocrinology but had to cancel her previous appt with Dr. Biswas as she was out of town back then She is now rescheduled to see Dr. Biswas in February 2023 (2) Pure hypercholesterolemia: Code(s): E78.00 - Pure hypercholesterolemia, unspecified Plan: Results of her labs done a few days ago reviewed and discussed with patient Reinforced low cholesterol diet Was on Pravastatin 10 mg QD in the past but states that she stopped taking this almost 2 years ago now - is not sure why but thinks that she just never refilled it when her Rx ran out Will start her back on Pravastatin 10 mg QD - is advised that being a diabetic, her LDL cholesterol should ideally be closer to 70 mg/dL Advised also that current diabetes treatment guidelines also recommend being on a statin Rx irregardless of one's cholesterol levels Will recheck her labs and fasting lipid in 3 to 4 months for follow up (3) Obstructive sleep apnea: Comment: The last sleep study was in 2008. Severe degree of sleep apnea. AHI was 72/hr and the oxygen esau was 82% Code(s): G47.33 - Obstructive sleep apnea (adult) (pediatric) Plan: Has been using her CPAP device daily again when sleeping at night but feels that it has not been helping States that she has not had a sleep study done in over 10 years now and is wondering if her requirements have changed She was referred to and is now seeing Sleep Medicine for follow up and management of her sleep apnea (4) GERD without esophagitis: Code(s): K21.9 - Gastro-esophageal reflux disease without esophagitis Plan: Dietary restrictions reinforced Continue Pantoprazole 40 mg QD Follow-up with GI as scheduled (5) Microscopic hematuria: Code(s): R31.29 - Other microscopic hematuria Plan: Is currently asymptomatic but patient still has trace amount of blood in her urine at times Renal US done a few months ago revealed no hydronephrosis or nephrolithiasis; (+) right renal parenchymal cortical scarring noted (6) Alpha thalassemia trait: Code(s): D56.3 - Thalassemia minor Plan: Advised that her H/H is normal but her CBC always present with microcytosis and hypochromia with a slightly elevated RBC count No intervention is needed and will just continue to monitor her CBC regularly (7) Varicose veins of bilateral lower extremities with pain: Code(s): I83.813 - Varicose veins of bilateral lower extremities with pain Plan: Will refer her to vascular surgery for further evaluation and management (8) Insomnia: Code(s): G47.00 - Insomnia, unspecified Qualifiers: Insomnia type: primary Qualified Code(s): F51.01 - Primary insomnia Plan: Sleep hygiene reinforced Continue Zolpidem 10 mg Q HS PRN (9) Morbid obesity with BMI of 40.0-44.9, adult: Code(s): E66.01 - Morbid (severe) obesity due to excess calories; Z68.41 - Body mass index [BMI] 40.0-44.9, adult Plan: Reinforced diet/exercise as tolerated/lose weight Plan To return in 3 months for her annual physical examination Orders: Orders Complete Blood Count Auto Diff 3 Months I10 - Essential (primary) hypertension Lipid Panel 3 Months E78.00 - Pure hypercholesterolemia, unspecified TSH reflex Free T4 3 Months E78.00 - Pure hypercholesterolemia, unspecified Microalbumin, Random (w Creat) 3 Months E11.9 - Type 2 diabetes mellitus without complications Comprehensive [place]. Panel Fast 3 Months E78.00 - Pure hypercholesterolemia, unspecified Hemoglobin A1c 3 Months E11.9 - Type 2 diabetes mellitus without complications UA CC w/rflx Micro + Cult 3 Months R30.0 - Dysuria Vitamin D 25-OH Total 3 Months E55.9 - Vitamin D deficiency, unspecified Referrals Vascular Surgery Referral I83.813 - Varicose veins of bilateral lower extremities with pain Medications: New lorazepam Take 1 tablet 30 minutes before boarding plane (as needed for anxiety). May repeat x 1 dose after 10 to 15 minutes if needed. 2 days 5 tabs 0RF anxiety regarding flying on plane Refilled pravastatin 10 mg PO BEDTIME 90 days 90 tabs 3RF E78.5 - Hyperlipidemia, unspecified Coding Level of Care Code Est Pt Level 4 (85085) Diagnoses Type 2 diabetes mellitus without complication, without long-term current use of insulin E11.9 Diabetes mellitus complication status: without complication Diabetes mellitus intermediate accountant insulin use: without intermediate accountant use Diabetes mellitus type: type 2 Pure hypercholesterolemia E78.00 Obstructive sleep apnea G47.33 GERD without esophagitis K21.9 Microscopic hematuria R31.29 Alpha thalassemia trait D56.3 Varicose veins of bilateral lower extremities with pain I83.813 Primary insomnia F51.01 Insomnia type: primary Morbid obesity with BMI of 40.0-44.9, adult E66.01; Z68.41
== END 2022-12-18 15:20 | disposition home or self-care (01) ==
PROVIDERS: PCP Internal Medicine; Visit Provider Internal Medicine
DX: E11.9 Type 2 diabetes mellitus without complications (principal); K21.9 Gastro-esophageal reflux disease without esophagitis; E66.01 Morbid (severe) obesity due to excess calories; Z68.41 Body mass index [BMI] 40.0-44.9, adult; E78.00 Pure hypercholesterolemia, unspecified; R31.29 Other microscopic hematuria; G47.33 Obstructive sleep apnea (adult) (pediatric); D56.3 Thalassemia minor; I83.813 Varicose veins of bilateral lower extremities with pain; F51.01 Primary insomnia
CPT/HCPCS: 99214

== ENCOUNTER 2023-02-13 13:27 | Outpatient (AMB) | payer OTHER, SELFPAY ==
[2023-02-13 13:26] VITALS: BMI 43.7
--- NOTE | 2023-02-13 13:26 | A.OFFVIS_ITS ---
Intake Vital Signs 02/13/23 13:26 Height 5 ft Weight 224 lb BMI 43.7 Intake Visit Reasons: CAR CHASER/ PCP referral for VV w/ pain Intake Note: CAR CHASER for bilateral LE swelling and VV. Pt states that left LE swelling is worse than right. 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 Pt states she has large varicose veins w/ fatigue when she is standing for long periods of time. Accompanied by: Self / Same As Patient Allergies IVP dye Allergy (Mild, Uncoded 02/13/23 13:33) Nausea HPI CAR CHASER/ PCP referral for VV w/ pain HPI Details Very pleasant 62-year-old female patient presents for painful varicose veins. Complaints include pain over varicosities, swelling of lower extremities, cramping, fatigue, and heaviness of the lower extremities. It has been affecting there daily activities including walking. It is noted more so in left leg. Patient denies any previous venous surgery or injections. Patient denies any history of DVT/ PE. Patient denies any history of phlebitis. Trial of compression includes - [id number] They now present for vascular evaluation regarding their varicose veins. [facility] Medical History Alpha thalassemia trait Diabetic nephropathy associated with type 2 diabetes mellitus group home (current) use of insulin Morbid obesity with BMI of 40.0-44.9, adult Insomnia GERD without esophagitis Obstructive sleep apnea Thalassemia trait History of left breast cancer (~2000) Pure hypercholesterolemia Diabetes mellitus Dyslipidemia Diabetes type 2, controlled Surgical History Hx of ventral hernia repair (~2003) S/P bilateral oophorectomy (~2002) S/P radical vaginal hysterectomy (~1989) Family History Paternal Aunt No problems noted. Maternal Uncle No problems noted. Mother Cardiovascular disease Liver cancer Breast cancer Father No problems noted. Maternal Aunt No problems noted. 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 Cognitive needs: No Hearing needs: No Vision needs: Yes Review of Systems Const Reports as per HPI ENT Reports no additional complaints Card Denies chest pain, Denies chest pain at rest and Denies chest pain with activity Resp Denies chest congestion and Denies cough GI Reports no additional complaints Musc Details: pain over varicosities, aching of lower extremities, swelling, cramping, heaviness and tiredness, itching Denies abnormal gait Skin/Breast Reports pruritus and Denies wounds Neuro Reports no additional complaints and Denies abnormal gait Psych Denies no additional complaints Physical Exam Vital Signs: BMI result Body Mass Index 43.7 Const General: cooperative, healthy appearing and comfortable Orientation/consciousness: oriented to person, oriented to place and oriented to time Neck Carotids: no bruits Chest Chest palpation & inspection: normal inspection of the chest and normal palpation of entire chest wall Resp Effort & Inspection: normal respiratory effort and able to speak in complete sentences Cardio Rate: regular rate Heart sounds: S1 normal heart sound present and S2 normal heart sound present Peripheral pulses: Peripheral pulses 2+ throughout GI Inspection: Yes normal to inspection Skin Other: +2 edema, spider telangiectasias CEAP Classification C4 - skin color changes Ep - Etiology Primary As - superficial veins P - reflux General skin exam: dry skin Neuro General: oriented to person, oriented to place and oriented to time Extrem Right lower extremity: full ROM, normal capillary refill and edema Left lower extremity: full ROM, normal capillary refill and edema Psych Mental Status: mental status grossly normal Assessment & Plan Assessment & Plan (1) Varicose veins of left lower extremity with inflammation: Code(s): I83.12 - Varicose veins of left lower extremity with inflammation Plan: In short, the patient has evidence of venous insufficiency. I have discussed the pathophysiology with the patient. In addition I have provided informational material regarding venous disease to the patient. We have discussed conservative measures including compression, elevation, and exercise. I have also provided a handout regarding appropriate use of compression stockings and where to purchase good compression stockings as well. I have taken the liberty of ordering venous insufficiency testing with the patient. They will follow up with me after testing. The patient had an opportunity to ask questions regarding the treatment plan. All questions were answered. Imaging studies, laboratory studies and physical exam results were discussed and reviewed in detail. No major barriers to understanding were identified. The patient expressed understanding and agreement with the above treatment plan. The patient is aware they should contact our office by phone for worsening of the current condition or the appearance of new symptoms. Thank you for allowing me to participate in the vascular care of this patient. If you have any questions or concerns regarding the treatment for the above condition please do not hesitate to contact me. The office telephone contact is [phone]. This note is constructed using voice recognition software. While every effort has been made to ensure accuracy, kiosk sales representative errors may have been included. Thank you for allowing me to participate in the care of your patient. Yours sincerely, Last Jean MD, FACS, R.P.V.I. Orders: Orders US venous duplex LE BI 1 Week I83.12 - Varicose veins of left lower extremity with inflammation Coding Level of Care Code New Pt Level 4 (95921) Diagnoses Varicose veins of left lower extremity with inflammation I83.12
== END 2023-02-13 13:50 | disposition home or self-care (01) ==
PROVIDERS: PCP Internal Medicine; Visit Provider Surgery Vascular Surgery
DX: I83.12 Varicose veins of left lower extremity with inflammation (principal)
CPT/HCPCS: 99203

== ENCOUNTER → 2023-02-13 13:27 | Outpatient (BNVA) | payer OTHER, SELFPAY | PROVIDERS: PCP Internal Medicine; Visit Provider Surgery Vascular Surgery ==

== ENCOUNTER 2023-02-26 12:50 | Outpatient (AMB) | payer OTHER, SELFPAY ==
[2023-02-26 12:55] VITALS: BP 116/64; PULSE 93; BMI 45.2
--- NOTE | 2023-02-26 12:55 | MHC.OFFVIS ---
Intake Vital Signs 02/26/23 12:55 Height 5 ft Weight 231 lb 7.766 oz BMI 45.2 BP 116/64 Blood Pressure Location Lt brachial Position Sitting Pulse 93 Pulse Source Pulse Oximeter Intake Visit Reasons: Dm2, previously anas Intake Note: New patient to Dr. Biswas present today for Type 2 Diabetes Mellitus. Previously managed by Ana Diaz. Last Diabetic Eye exam: 10/2022 Last Podiatry Visit: Doesn't have one Random Glucose: 237 mg/dl HgA1C: 7.8% 12/08/22 General Manager Required: No Accompanied by: Self / Same As Patient Allergies IVP dye Allergy (Mild, Uncoded 02/13/23 13:33) Nausea Medication List - Last Reconciled 02/26/23 by Jimmy Biswas MD blood sugar diagnostic As directed flash glucose scanning reader ([employer] Tara 14 Day [place]) As directed flash glucose sensor (FreeStyle Tara 14 Day Sensor kit) every 14 days insulin glargine-lixisenatide 100 unit-33 mcg/mL (Soliqua 100/33) 26 units before breakfast and 26 units before dinner subcut .Twice a day; metformin ER 1,500 mg PO BID omeprazole 40 mg PO DAILY pen needle, diabetic (BD Brie 2nd Gen Pen Needle) Twice a day pravastatin 10 mg PO BEDTIME 90 days HPI HPI Comments History of Present Illness Details 62 yo female today for fup visit , last seen on 10/27/[address] Rosenthal for diabetes management. She is feeling well. Unable to download CGMS. from viewing on smart phone patient is not scanning that frequently She has DM type 2 diagnosed 2012. She is Currently on Metformin 1000 mg extended release , Soliqua 30 units before breakfast and 30 units before dinner, Jardiance 25 mg QD-stopped because of yeast infections No hypoglycemia Complications: no retinopathy, nephropathy, neuropathy, CVA, CAD, PVD. Last ophthalmology evaluation: 10/2022 . no need for photocoagulation or VEGF therapy. She has increased urinary frequency but not as bad at the beginning of using the jardiance. She deneis numbness, tingling, blurred vision. Her weight is stable. Laboratory Tests 08/30/18 11/08/18 12/06/18 13:14 12:00 11:17 Hgb Hct Sodium Potassium Creatinine Estimated GFR Fasting Glucose Estimat Average Gl ucose Hemoglobin A1c 6.5 Hgb A1c Fingerstic k 7.8 Hemoglobin A1c % Calcium AST ALT Albumin Triglycerides Cholesterol LDL Cholesterol Di rect 87 LDL Cholesterol, C alc HDL Cholesterol TSH Urine Creatinine Urine Microalbumin Microalb/Creat Rat io 06/14/20 06/14/20 06/14/20 11:11 11:11 11:11 Hgb Hct Sodium 142 Potassium 4.3 Creatinine 0.73 Estimated GFR > 60 Fasting Glucose 113 H Estimat Average Gl ucose 160 Hemoglobin A1c Hgb A1c Fingerstic k Hemoglobin A1c % 7.2 Calcium 8.9 AST 14 ALT 15 Albumin 4.0 Triglycerides 74 Cholesterol 137 LDL Cholesterol Di rect LDL Cholesterol, C alc 81 HDL Cholesterol 42 TSH 0.61 Urine Creatinine 54.13 Urine Microalbumin 9.0 Microalb/Creat Rat io 16.6 06/14/20 11:11 Hgb 13.9 Hct 45.6 Sodium Potassium Creatinine Estimated GFR Fasting Glucose Estimat Average Gl ucose Hemoglobin A1c Hgb A1c Fingerstic k Hemoglobin A1c % Calcium AST ALT Albumin Triglycerides Cholesterol LDL Cholesterol Di rect LDL Cholesterol, C alc HDL Cholesterol TSH Urine Creatinine Urine Microalbumin Microalb/Creat Rat io [facility] Medical History (Updated 02/13/23 @ 14:01 by Last Jean MD) Alpha thalassemia trait Diabetic nephropathy associated with type 2 diabetes mellitus 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 Maternal Uncle No problems noted. Mother Cardiovascular disease Liver cancer Breast cancer Father No problems noted. Maternal Aunt No problems noted. 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 Absence of acromegalic features. Neck exam reveals nl size thyroid about 15 gms. No thyroid nodules palpable. No carotid bruits present. Lungs CTA. Heart S1 S2, Reg R/R. No M/R/ G. Skin exam reveals absence of vitiligo or acanthosis nigricans. Abdominal exam reveals Soft NT/ND with NA BS. No organomegaly present. Neck Other: . Extrem Other: Visual exam of foot performed. No ulcerations or open lesions. No onchomycosis, no callouses.Pulses 2 + distally Sensation intact to monofilament exam. 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 Assuming antibodies are negative, we will change the Soliqua to Lantus 30 units and Mounjaro 2.5 mg Qwkly and titrate as tolerated . Will have patient meet with online editor and hydraulic plumber . Will have patient scan more frequently with Tara. Will have patient me with online editor hydraulic plumber. Went over correlation poor glycemic control to development and progression of complications Mounjaro 2.5 mg samples given the patient lot number [id number] expiration date 04/13/2024 Orders: Orders Glutamic acid decarboxylase Ab Today E11.9 - Type 2 diabetes mellitus without complications Referrals Diabetes Education Referral E11.9 - Type 2 diabetes mellitus without complications Nutrition/Dietitian Referral E11.9 - Type 2 diabetes mellitus without complications Medications: New insulin glargine (Lantus Solostar U-100 Insulin) 30 units (0.3 mL) subcut BID 30 mL 6RF Coding Level of Care Code Est Pt Level 4 (68538) Diagnoses Controlled type 2 diabetes mellitus with microalbuminuria, with long-term current use of insulin E11.29; R80.9; Z79.4 Diabetes mellitus complication detail: with microalbuminuria Diabetes mellitus complication status: with kidney complications 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
[2023-02-26 13:07] LABS: Glucose, Whole Blood 237 mg/dL (60-115)
== END 2023-02-26 14:12 | disposition home or self-care (01) ==
PROVIDERS: PCP Internal Medicine; Visit Provider Internal Medicine Endocrinology, Diabetes & Metabolism
DX: E11.29 Type 2 diabetes mellitus with other diabetic kidney complication (principal); R80.9 Proteinuria, unspecified; Z79.4 Long term (current) use of insulin
CPT/HCPCS: 99214

== ENCOUNTER → 2023-02-26 12:50 | Outpatient (BNVA) | payer OTHER, SELFPAY | PROVIDERS: Visit Provider Internal Medicine Endocrinology, Diabetes & Metabolism | DX: E11.29 Type 2 diabetes mellitus with other diabetic kidney complication (principal); R80.9 Proteinuria, unspecified; Z79.4 Long term (current) use of insulin | CPT/HCPCS: 82947 ==

== ENCOUNTER 2023-03-02 13:56 | Outpatient (REF) | payer OTHER, SELFPAY ==
[2023-03-04 16:09] LABS: Glutamic acid decarboxylase Ab <5 IU/mL (<5)
== END 2023-03-02 13:57 | disposition home or self-care (01) ==
LOC: HO.LAB 13:56
PROVIDERS: PCP Internal Medicine; Visit Provider Internal Medicine Endocrinology, Diabetes & Metabolism
DX: E11.9 Type 2 diabetes mellitus without complications (principal)
CPT/HCPCS: 36415; 86341

== ENCOUNTER 2023-03-14 12:53 | Outpatient (AMB) | payer OTHER, SELFPAY ==
--- NOTE | 2023-03-14 13:52 | MHC.AMDMED ---
Intake Intake Visit Reasons: DM Electronic Funds Transfer Coordinator Required: No Accompanied by: Self / Same As Patient Allergies IVP dye Allergy (Mild, Uncoded 02/13/23 13:33) Nausea HPI Comprehensive Diabetes Asmnt Most Recent Diabetes Results: Hemoglobin A1c 6.5 % 12/06/18 Microalb/Creat Ratio 13.5 ug/mg cr (<30) 12/08/22 Cholesterol 172 mg/dL (<200) 12/08/22 HDL Cholesterol 41 mg/dL (>40) 12/08/22 Triglycerides 85 mg/dL (<150) 12/08/22 Creatinine 0.80 mg/dL (0.5-1.4) 12/08/22 Blood Urea Nitrogen 23 mg/dL (9-16) H 12/08/22 Sodium 138 mmol/L (135-145) 12/08/22 Potassium 4.7 mmol/L (3.3-5.1) 12/08/22 Chloride 104 mmol/L (96-108) 12/08/22 Carbon Dioxide 25 mmol/L (22-29) 12/08/22 Calcium 10.1 mg/dL (8.4-10.2) 12/08/22 AST 14 U/L (5-31) 12/08/22 ALT 14 U/L (0-31) 12/08/22 Total Protein 7.3 g/dL (6.5-8.0) 12/08/22 Albumin 4.0 g/dL (3.5-5.0) 12/08/22 [facility] Medical History (Updated 02/13/23 @ 14:01 by Last Jean MD) Alpha thalassemia trait Diabetic nephropathy associated with type 2 diabetes mellitus [facility] (current) use of insulin Morbid obesity with BMI of 40.0-44.9, adult Insomnia GERD without esophagitis Obstructive sleep apnea Thalassemia trait History of left breast cancer (~2000) Pure hypercholesterolemia Diabetes mellitus Dyslipidemia Diabetes type 2, controlled Surgical History S/P lumpectomy, left breast Hx of ventral hernia repair (~2003) S/P bilateral oophorectomy (~2002) S/P radical vaginal hysterectomy (~1989) Family History Paternal Aunt No problems noted. Maternal Uncle No problems noted. Mother Cardiovascular disease Liver cancer Breast cancer Father No problems noted. Maternal Aunt No problems noted. 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 Cognitive needs: No Hearing needs: No Vision needs: Yes Assessment & Plan Assessment & Plan (1) Diabetes type 2, controlled: Code(s): E11.9 - Type 2 diabetes mellitus without complications Qualifiers: Diabetes mellitus termite exterminator helper insulin use: with termite exterminator helper use Diabetes mellitus complication status: with kidney complications Diabetes mellitus complication detail: with microalbuminuria Qualified Code(s): E11.29 - Type 2 diabetes mellitus with other diabetic kidney complication; R80.9 - Proteinuria, unspecified; Z79.4 - [facility] (current) use of insulin Plan: Diabetes self-management education and support participation record Assessment/scale: 1= needs instructed? 2= needs review? 3= comprehend keep point? 4= demonstrates understanding/ competent? NC= Not Covered Topics Learning Objective: Initial visit Initial or post srvc Initial or post srvc Initial or post srvc Initial or post srvc Initial or post srvc Post srvc Comments Pre Edu-assessment/plan Outcome or reassess Outcome or reassess Outcome or reassess Outcome or reassess Outcome or reassess Outcome or reassess Diabetes pathophysiology 1 Healthy eating 2 Being active 1 Taking medication 1 Monitoring glucose 1 Acute complication Chronic complicated Lifestyle and healthy coping Diabetes distress in support ?Diabetes pathophysiology: ?Defined diabetes med identify own type of diabetes; list 3 options for treating diabetes Healthy eating: ?Described effect of type, amount and ?timing of food on blood glucose; list 3 methods for planning meal Being active: ?State effect of exercise on blood glucose level Taking medication: ?State effect of diabetes medications on diabetes; name diabetes medications taking, action and side effects Monitoring glucose: ?Identify recommended blood glucose targets and personal target Acute complication: ?List symptoms and treatment of hyper and hypoglycemia, DKA, sick day guidelines and guidelines for severe weather or situations of crisis and diabetes supply manage Chronic complication: ?To find the relationship of blood glucose levels to long-term complications of diabetes in screening and preventative measures Lifestyle and healthy coping: ?Described lifestyle and healthy coping strategies to rule out diabetes self-management Diabetes to stress and support: ?Recognize Diabetes to stress and be able to identified support options Learning objectives: The patient was provided with verbal and written education on the following topics as outlined below. The patient met all learning objectives and was able to verbalize understanding and provide teach back of education topics discussed . The patient was provided with the opportunity to ask questions and all questions were answered. Patient Assessment Assess patient education level/literacy/barriers Patient questions/concerns, patient reports she has recently retired from [employer] She has not started Mounjaro 2.5 mg, discussed with patient switching from Tara 2 sensors to Tara 2 sensors in order to capture more glucose data. What is Diabetes? Pathophysiology How the body produces and uses insulin Identify type of DM Risk factors Signs of Diabetes Brief overview of Diabetes Management Monitoring blood sugar Following a meal plan Regular exercise Maintaining a healthy weight Taking medication as needed Members of the care team (PCP, RN, MA, RD, CDE, county treasurer) Blood glucose monitoring When/how often to test Target blood sugar ranges patient using freestyle Tara 2 patient only has 48% of the time sensor use average glucose 187 mg/dL patient above target 54% patient at target 46 % patient below target 0% patient's last A1c on 12/08/2022 7.8% Introduction to Nutrition Importance of healthy diet in managing DM Diet is personalized to individual preference Review patient?s regular diet/food preferences Who prepares meals/does food shopping/ Dining out?/ Barriers? How diet effects glucose Eating 3 balanced meals a day with small, healthy snacks between meals Review food groups Carbohydrates: What is a carbohydrate/Which food/food groups are considered carbohydrates Effect of carbohydrates on blood glucose Portion sizes Reading food labels Basic carb counting (if applicable per nursing assessment) Plate method Meal planning Recommendations: Follow plate method, consistent carbs and read nutritional labels. Smart Goal: patient will review diabetes food hub website for meal ideas Educational Materials: The patient was provided with the following written educational materials: Planning Healthy Meals Handout Patient Response to instructions: Comprehension of Instructions: Fair Readiness to make changes: Contemplation How confident they feel about making changes: fair Medications: Discontinued flash glucose scanning reader (FreeStyle Tara 14 Day [place]) Discontinued Reason: Doctor's Order As directed 1 ea 0RF E11.9 - Type 2 diabetes mellitus without complications flash glucose sensor (FreeStyle Tara 14 Day Sensor kit) Discontinued Reason: Doctor's Order every 14 days 2 ea 11RF E11.65 - Type 2 diabetes mellitus with hyperglycemia Patient Instructions: Include regular daily activity. ADA recommends 30 minutes of exercise 5 days a week. Weight loss talk to PCP or Food Mixer Assembler before starting new plan. Test blood sugar as directed; Fasting and 2hpp largest meal. Watch trends in results. Utilize results and to assess how food, physical activity and medications affect blood sugar results. Bring glucometer or CGM to next visit. Be knowledgeable about diabetes medication, its action, side effects, efficacy, toxicity, prescribed dosage, appropriate timing and frequency of administration, effect of missed and delayed doses and instructions for storage, travel and safety. Problem solving techniques to monitor hypo/hyperglycemia episodes and treatments. Reduce risk reduction behaviors, smoking cessation, regular eye, foot and dental examinations. follow-up with certified adaptive physical educator 6 months Coding Level of Care Code Est Pt Level 1 (25317) Diagnoses Controlled type 2 diabetes mellitus with microalbuminuria, with long-term current use of insulin E11.29; R80.9; Z79.4 Diabetes mellitus nursing home insulin use: with termite exterminator helper use Diabetes mellitus complication status: with kidney complications Diabetes mellitus complication detail: with microalbuminuria
== END 2023-03-14 14:00 | disposition home or self-care (01) ==
PROVIDERS: PCP Internal Medicine; Visit Provider Registered Nurse Diabetes Educator
DX: E11.29 Type 2 diabetes mellitus with other diabetic kidney complication (principal); R80.9 Proteinuria, unspecified; Z79.4 Long term (current) use of insulin

== ENCOUNTER → 2023-03-14 12:53 | Outpatient (BNVA) | payer OTHER, SELFPAY | PROVIDERS: PCP Internal Medicine; Visit Provider Registered Nurse Diabetes Educator | DX: E11.29 Type 2 diabetes mellitus with other diabetic kidney complication (principal); R80.9 Proteinuria, unspecified; Z79.4 Long term (current) use of insulin | CPT/HCPCS: 99211 ==

== ENCOUNTER 2023-03-15 12:30 | Outpatient (REF) | payer OTHER, SELFPAY ==
--- NOTE | ~2023-03-15 | US_ITS ---
EXAMINATION: US LOWER EXTREMITY VENOUS (REFLUX EXAM), BILATERAL CLINICAL INDICATION: Chronic venous insufficiency with lower extremity varicose veins and inflammation COMPARISON: None. TECHNIQUE: Color flow triplex imaging and compression Doppler was performed to evaluate both the deep and the superficial systems bilaterally. To evaluate the superficial system, the examination was performed in the upright position. Color-flow Doppler ultrasound and compression ultrasound were utilized. In addition, maneuvers were utilized to demonstrate reflux. FINDINGS: 1. DEEP VENOUS ULTRASOUND OF THE RIGHT LOWER EXTREMITY: Common Femoral Vein: Compressible, normal respiratory variation and augmented flow. Femoral Vein: Compressible, normal color flow and augmentation. Popliteal Vein: Compressible, normal augmentation. Deep Reflux: There is no evidence of reflux in the deep system in either the common femoral vein, superficial femoral or the popliteal vein. There is no evidence of a Soni's cyst. 2. SUPERFICIAL ULTRASOUND WITH DOPPLER OF RIGHT LOWER EXTREMITY: GREAT SAPHENOUS VEIN: Saphenofemoral Junction: 1.0 cm; Reflux: 0 ms Proximal Thigh: 0.6 cm; Reflux: 0 ms Mid Thigh: 0.2 cm; Reflux: 0 ms Above Knee: 0.3 cm; Reflux: 0 ms At Knee: 0.3 cm; Reflux: 388 ms Below Knee: 0.3 cm; Reflux: 0 ms Mid Calf: 0.3 cm; Reflux: 0 ms Ankle: 0.3 cm; Reflux: 0 ms DUPLICATED MEDIAL GREAT SAPHENOUS VEIN: Diameter: None imaged Reflux: NA DUPLICATED LATERAL GREAT SAPHENOUS VEIN: Diameter: 0.4 cm Reflux: None SMALL SAPHENOUS VEIN: Proximal: 0.2 cm; Reflux: 0 ms Distal: 0.2 cm; Reflux: 0 ms VEIN OF GIACOMINI: Size: NA Reflux: NA PERFORATORS: Location: None imaged Size: NA Reflux: NA VARICOSITIES: Location: Mid calf off the great saphenous vein Size: 0.4 cm Reflux: 2304 ms 3. DEEP VENOUS ULTRASOUND OF THE LEFT LOWER EXTREMITY: Common Femoral Vein: Compressible, normal respiratory variation and augmented flow. Femoral Vein: Compressible, normal color flow and augmentation. Popliteal Vein: Compressible, normal augmentation. Deep Reflux: There is no evidence of reflux in the deep system in either the common femoral vein, superficial femoral or the popliteal vein. There is no evidence of a Soni's cyst. 4. SUPERFICIAL ULTRASOUND WITH DOPPLER OF LEFT LOWER EXTREMITY: GREAT SAPHENOUS VEIN: Saphenofemoral Junction: 0.75 cm; Reflux: 0 ms Proximal Thigh: 0.6 cm; Reflux: 0 ms Mid Thigh: 0.2 cm; Reflux: 0 ms Above Knee: 0.2 cm; Reflux: 0 ms At Knee: 0.3 cm; Reflux: 0 ms Below Knee: 0.2 cm; Reflux: 0 ms Mid Calf: 0.2 cm; Reflux: 0 ms Ankle: 0.2 cm; Reflux: 0 ms DUPLICATED MEDIAL GREAT SAPHENOUS VEIN: Diameter: None imaged Reflux: NA DUPLICATED LATERAL GREAT SAPHENOUS VEIN: Diameter: None imaged Reflux: NA SMALL SAPHENOUS VEIN: Proximal: 0.3 cm; Reflux: 0 ms Distal: 0.2 cm; Reflux: 0 ms VEIN OF GIACOMINI: Size: NA Reflux: NA PERFORATORS: Location: None imaged Size: NA Reflux: NA VARICOSITIES: Location: Proximal thigh off the great saphenous vein Size: 0.4 cm Reflux: None US/US venous duplex LE BI IMPRESSION: Right: No significant reflux or venous insufficiency in the great saphenous vein or small saphenous vein. There is a varicose vein in the mid calf with reflux as described above Left: No significant reflux or venous insufficiency in the great saphenous vein or small saphenous vein. There is a varicose vein in the proximal thigh without significant reflux
[2023-03-15 12:56] LABS: MANUAL DIFF FLAG NO
[2023-03-15 13:26] LABS: Basophils Absolute Auto 0.1 X10*3/uL (0.0-0.2); Basophils Percent Auto 0.7 % (0-2); Eosinophils Absolute Auto 0.3 X10*3/uL (0.0-0.4); Eosinophils Percent Auto 3.4 % (0-4); Hematocrit 46.4 % (37.0-47.0); Hemoglobin 13.9 g/dl (12.0-16.0); Imm Gran Abs Auto 0.06 X10*3/uL (0.00-0.03); Imm Gran Pct Auto 0.7 % (0.0-0.4); Lymphocytes Absolute Auto 2.5 X10*3/uL (1.2-4.9); Mean Corpuscular Hemoglobin 19.3 pg (27.0-33.0); Mean Corpuscular Volume 64.3 fL (80.0-98.0); Mean Platelet Volume 10.1 fL (9.4-12.3); Monocytes Absolute Auto 0.5 X10*3/uL (0.1-1.2); Monocytes Percent Auto 6.3 % (2-11); Neutrophils Absolute Auto 4.7 x10*3/uL (2.0-8.3); Neutrophils Percent Auto 57.9 % (45-73); Platelet Count 265 X10*3/uL (160-400); Red Blood Count 7.22 X10*6/uL (4.20-5.50); Red Cell Distribution Width 17.8 % (11.0-16.0); White Blood Count 8.2 X10*3/uL (4.8-10.8)
[2023-03-15 13:43] LABS: Estimated Average Glucose 212 mg/dL
[2023-03-15 13:57] LABS: Alanine Aminotransferase 15 U/L (0-31); Albumin Level 4.1 g/dL (3.5-5.0); Alkaline Phosphatase 97 U/L (39-117); Anion Gap 11 (12-20); Aspartate Amino Transferase 15 U/L (5-31); Bilirubin Total 0.6 mg/dL (0.0-1.0); Blood Urea Nitrogen 18 mg/dL (9-16); Calcium 9.4 mg/dL (8.4-10.2); Carbon Dioxide 29 mmol/L (22-29); Chloride 104 mmol/L (96-108); Cholesterol 181 mg/dL (<200); Estimated Glomerular Filt Rate > 60; Glucose Fasting 193 mg/dL (60-99); HDL Cholesterol 43 mg/dL (>40); LDL Cholesterol Calculated 123 mg/dL (<100); Sodium 140 mmol/L (135-145); Total Protein 7.9 g/dL (6.5-8.0); Triglycerides 79 mg/dL (<150)
[2023-03-15 14:14] LABS: TSH reflex Free T4 0.91 uIU/mL (0.32-4.0); Vitamin D 25-OH Total 36.8 ng/mL (>30)
[2023-03-15 16:37] LABS: Appearance Urine Cloudy; Color Urine Yellow; Glucose Urine UA 250 mg/dL (Negative); Leukocyte Esterase Urine Moderate (2+) (Negative); Nitrite Urine Negative (Negative); PH 5.5 (5.0-9.0); Specific Gravity - Urine >= 1.030 (1.005-1.025); UMIC TRIGGER UACC YES; Urine Blood Negative (Negative); Urine Ketones Trace mg/dL (Negative); Urine Protein Trace mg/dL (Neg-Trace)
[2023-03-15 16:47] LABS: Bacteria Urine Trace (None Seen); Hyaline Casts Urine 0-2 /LPF (0-2); RBC Urine 0-2 /HPF (0-2); Squamous Epithelial Cell Urine >20 /HPF (0-2); UACC Culture Trigger YES; WBC Urine >50 /HPF (0-5)
[2023-03-15 17:05] LABS: Creatinine Urine 151.98 mg/dL; Microalbum/Creatinine Ratio Ur 19.7 ug/mg cr (<30)
== END 2023-03-15 12:31 | disposition home or self-care (01) ==
LOC: HO.US 12:30
PROVIDERS: Absent Provider Internal Medicine; PCP Internal Medicine; Visit Provider Surgery Vascular Surgery
DX: I83.12 Varicose veins of left lower extremity with inflammation (principal); E78.00 Pure hypercholesterolemia, unspecified; E11.9 Type 2 diabetes mellitus without complications; I10 Essential (primary) hypertension; E55.9 Vitamin D deficiency, unspecified; R30.0 Dysuria
CPT/HCPCS: 36415; 80053; 80061; 81001; 82043; 82306; 82570; 83036; 84443; 85025; 87086; 93970

== ENCOUNTER 2023-03-16 13:55 | Outpatient (AMB) | payer OTHER, SELFPAY ==
[2023-03-16 13:57] VITALS: BP 116/72; PULSE 88; O2SAT 99; BMI 44.3
--- NOTE | 2023-03-16 13:57 | A.OFFPC_ITS ---
Vital Signs 03/16/23 13:57 Height 5 ft Weight 227 lb BMI 44.3 BP 116/72 Blood Pressure Location Lt brachial Position Sitting Pulse 88 Pulse Source Pulse Oximeter Pulse Oximetry (%) 99 Oxygen Delivery Method Room Air Intake Visit Reasons: Annual exam Faucets Assembler Required: No Accompanied by: Self / Same As Patient Allergies atorvastatin Adverse Reaction (Intermediate, Verified 03/18/23 19:14) myalgia, low back pain pravastatin Adverse Reaction (Intermediate, Verified 03/18/23 19:14) myalgia, low back pain IVP dye Allergy (Mild, Uncoded 03/16/23 14:29) Nausea Medication List - Last Reconciled 03/16/23 by Salvatore Gramajo MD blood sugar diagnostic As directed blood-glucose sensor (FreeStyle Tara 3 Sensor device) As directed change every 14 days insulin glargine (Lantus Solostar U-100 Insulin) 30 units (0.3 mL) subcut BID metformin ER 1,500 mg PO BID omeprazole 40 mg PO DAILY pen needle, diabetic (BD Brie 2nd Gen Pen Needle) Twice a day pravastatin 10 mg PO BEDTIME 90 days Tobacco use date assessed: 03/16/23 Dental Screening Dental Screen Date: 03/16/23 Did you have a dental visit in the last 12 months?: Yes Did you have a dental problem in the last 6 months where you did not have access to dental care?: No Was dental information given to patient?: Patient has dentist HPI Annual exam HPI Details Patient comes in today for her annual physical examination States that she feels okay but continues to complain of recurrent pain over both arms and both legs States that she was seen by vascular surgery recently and was reportedly advised that her symptoms do not appear to be vascular in etiology She denies any headaches or dizziness Denies any chest pains, no SOB No nausea/vomiting, no abdominal pain No change in bowel habits noted She denies any acute urinary symptoms Had her follow up labs done yesterday - to discuss her results Had her last screening colonoscopy done with Dr. Johansen back on 03/2020 - had a couple of tubular adenomas removed and she was advised to get repeat colonoscopy in 5 years (2024) She had her annual mammogram done at [facility] on 10/20/2022 States that she has not had her gynecology exam and annual pap smear done in a few years now - goes to gynecology at [facility] Medical History (Updated 03/16/23 @ 14:57 by Salvatore Gramajo MD) Alpha thalassemia trait Diabetic nephropathy associated with type 2 diabetes mellitus group home (current) use of insulin Morbid obesity with BMI of 40.0-44.9, adult Insomnia GERD without esophagitis Obstructive sleep apnea Thalassemia trait History of left breast cancer (~2000) Pure hypercholesterolemia Diabetes mellitus Dyslipidemia Diabetes type 2, controlled Surgical History (Updated 03/16/23 @ 14:41 by Salvatore Gramajo MD) Hx of colonoscopy (~03/19/15) S/P lumpectomy, left breast Hx of ventral hernia repair (~2003) S/P bilateral oophorectomy (~2002) S/P radical vaginal hysterectomy (~1989) Family History Paternal Aunt No problems noted. Maternal Uncle No problems noted. Mother Cardiovascular disease Liver cancer Breast cancer Father No problems noted. Maternal Aunt No problems noted. 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 1. Little interest or pleasure in doing things: not at all 2. Feeling down, depressed, or hopeless: not at all 3. Trouble falling or staying asleep, or sleeping too much: not at all 4. Feeling tired or having little energy: not at all 5. Poor appetite or overeating: not at all 6. Feeling bad about yourself - or that you are a failure or have let yourself or your family down: not at all 7. Trouble concentrating on things, such as reading the newspaper or watching television: not at all 8. Moving or speaking so slowly that other people could have noticed. Or the opposite - being so fidgety or restless that you have been moving around a lot more than usual: not at all 9. Thoughts that you would be better off or of hurting yourself in some way: not at all Total score: 0 Depression Screening Interpretation: Negative Depression Screening Done: Yes 09374 - PHQ-9 Billing: Yes Source: Developed by Drs. Jimmy Richey, Angelica Calderon, Hernandez Gold and colleagues, with an educational joi from [employer]. Thrive Questionnaire Date Thrive assessed: 03/16/23 I am a: Patient What is your living situation today?: I have a steady place to live Within the past 12 months, did the food you bought not last and you didn't have the money to get more?: Never true Within the past 12 months, did you worry whether your food would run out before you got money to buy more?: Never true Do you have trouble paying for medicines?: No Do you have trouble getting transportation to medical appointments?: No Do you have trouble paying your heating and electricity bill?: No Do you have trouble taking care of your child, family member or friend?: No Do you have trouble with day-to-day activities such as bathing, preparing meals, shopping, managing finances, etc.?: No Are you currently unemployed and looking for a job?: No Are you interested in more education?: No Please select the resources that you would like help with: None Currently or been in a relationship where the following occur: no concerns reported AUDIT C Alcohol Use Questionnaire (AUDIT-C) 1. How often do you have a drink containing alcohol?: Never 3. How often do you have six or more drinks on one occasion?: Never Total Score: 0 Score Reviewed/Action Taken: Yes ANUPAMA-7 AMB Questionnaire ANUPAMA-7 Date ANUPAMA - 7 assessed: 03/16/23 Feeling nervous, anxious, or on edge: 0 = Not at all Not being able to stop or control worryin = Not at all Worrying too much about different things: 0 = Not at all Trouble relaxin = Not at all Being so restless that it is hard to sit still: 0 = Not at all Becoming easily annoyed or irritable: 0 = Not at all Feeling afraid as if something awful might happen: 0 = Not at all Total ANUPAMA-7 score (0-4 normal; 5-9 mild; 10-14 moderate; 15-21 severe): 0 Source: Developed by Drs. Jimmy Richey, Angelica Calderon, Hernandez Gold and colleagues, with an educational joi from [employer]. Review of Systems Const Denies chills, Denies fatigue, Denies fever(s), Denies headache(s) and Denies malaise Eyes Denies blurry vision, Denies change in vision, Denies irritation and Denies itchy eyes ENT Denies dysphagia, Denies dizziness, Denies otalgia, Denies headache(s), Denies nasal congestion, Denies neck pain, Denies odynophagia, Denies sinus pain and Denies sore throat Card Denies chest pain, Denies rapid heart rate, Denies irregular heart rhythm, Denies palpitations and Denies dyspnea Resp Denies chest congestion, Denies cough, Denies dyspnea and Denies wheezing GI Denies abdominal pain, Denies bloating, Denies constipation, Denies dysphagia, Denies heartburn, Denies diarrhea, Denies nausea, Denies odynophagia and Denies vomiting Denies hematuria, Denies urinary frequency, Denies dysuria, Denies urinary incontinence and Denies urinary urgency Musc Details: pain over varicosities, aching of lower extremities, swelling, cramping, heaviness and tiredness, itching; (+) recurrent bilateral arm pain Denies back pain, Denies arthralgias, Denies joint swelling, Denies muscle weakness and Denies neck pain Skin/Breast Denies breast pain, Denies breast mass, Denies change in pigmentation, Denies lesions, Denies rash and Denies unusual bruising Neuro Denies dizziness, Denies headache(s) and Denies paresthesias Psych Denies anxiety and Denies depression Endo Denies fatigue and Denies palpitations Lg/Lymph Denies easy bruising Aller/Immun Denies itchy eyes and Denies wheezing Physical exam (Primary Care) Vital Signs: Last Vital Signs Pulse 88 03/16/23 13:57 BP 116/72 03/16/23 13:57 Pulse Ox 99 03/16/23 13:57 Oxygen Delivery Method Room Air 03/16/23 13:57 BMI result Body Mass Index 44.3 Tobacco/Smoking Status: Tobacco use Status Tobacco use date assessed 03/16/23 03/16/23 14:11 Patient Tobacco Use Status Former Tobacco user 03/16/23 13:57 Tobacco use type Cigarette 03/16/23 13:57 e-Cigarette/Vaping Use Never Used 03/16/23 13:57 PHQ-9: PHQ-9 Score PHQ-9: Total score 0 03/16/23 14:36 Depression Screening Interpretation: Negative Thrive Assessment: Date of Thrive Assessment Date Thrive assessed 03/16/23 03/16/23 14:11 Currently or been in a relationship where the following occur: no concerns reported Const General: no acute distress, alert and awake Orientation/consciousness: patient oriented x3 HENMT Head: Yes normocephalic and Yes atraumatic Ears: external ears normal, TM's normal bilaterally and EAC's normal General nose exam: No nasal discharge present Face and sinus: Yes normal facial exam and Yes sinuses nontender Teeth and gingiva: dentition normal Throat: Yes posterior oropharynx normal and Yes tonsils normal (no TP congestion) Eyes Eyelids: Yes eyelids normal Conjunctivae: conjunctivae normal Pupils: Equal, round and reactive pupils present EOM: EOMs intact bilaterally Neck Neck: Yes no lymphadenopathy and Yes supple Thyroid: Thyroid normal Resp Auscultation: clear to auscultation bilaterally, no rales and no wheezes Cardio Rate: regular rate Rhythm: regular rhythm Heart sounds: no murmurs GI Palpation (GI): Soft to palpation, nontender and No hepatosplenomegaly present Auscultation: normal bowel sounds General: Yes no CVA tenderness Back/Spine/Pelvis Back: no CVA tenderness Thoracic/Lumbar Spine: thoracic and lumbar spine normal to inspection Skin Lesions: no lesions Rashes: no rashes Neuro General: patient oriented x3, moves all extremities, no focal motor deficits and CN's II-XI intact bilaterally Cranial nerves: Yes Equal, round and reactive pupils present Cognition (Neuro): normal cognition Gait exam (Neuro): Normal gait present Extrem General: Yes no clubbing, cyanosis or edema Results Reviewed Results Reviewed: Laboratory Tests 03/15/23 03/15/23 03/15/23 12:48 12:48 12:52 WBC 8.2 Hgb 13.9 Hct 46.4 MCV 64.3 L MCH 19.3 L RDW 17.8 H Plt Count 265 Sodium 140 Potassium 4.0 Creatinine 0.93 Estimated GFR > 60 Fasting Glucose 193 H Hemoglobin A1c % 9.0 H Calcium AST ALT 15 Triglycerides 79 Cholesterol 181 LDL Cholesterol, Calc 123 H HDL Cholesterol 43 25-OH Vitamin D Total 36.8 TSH 0.91 Ur Specific Sayre >= 1.030 H Urine Protein Trace Urine Glucose (UA) 250 H Urine Blood Negative Microalb/Creat Ratio 19.7 03/15/23 12:52 WBC Hgb Hct MCV MCH RDW Plt Count Sodium Potassium Creatinine Estimated GFR Fasting Glucose Hemoglobin A1c % Calcium 9.4 D AST 15 ALT Triglycerides Cholesterol LDL Cholesterol, Calc HDL Cholesterol 25-OH Vitamin D Total TSH Ur Specific [place]re Urine Protein Urine Glucose (UA) Urine Blood Microalb/Creat Ratio Assessment and Plan Assessment & Plan (1) Annual physical exam: Code(s): Z00.00 - Encounter for general adult medical examination without abnormal findings Plan: Results of her labs done yesterday reviewed and discussed with patient She is currently up-to-date with her colon cancer and breast cancer screenings but has not had her pap smear and gynecology exam done in a few years now - is advised to contact her botanical technical officer's office at [facility] and scheduled an appointment with them ZAIDA (2) Diabetes mellitus: Code(s): E11.9 - Type 2 diabetes mellitus without complications Qualifiers: Diabetes mellitus type: type 2 Diabetes mellitus geographic information 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 Biswas about 3 weeks ago; Jardiance was also discontinued by endocrinology a few months ago due to frequent yeast infections Follow up with Endocrinology as scheduled (3) Pure hypercholesterolemia: Code(s): E78.00 - Pure hypercholesterolemia, unspecified Plan: Results of her labs done yesterday reviewed and discussed with patient Reinforced low cholesterol diet Was on Pravastatin 10 mg QD in the past but states that she stopped taking this almost 2 years ago now - is not sure why but thinks that she just never refilled it when her Rx ran out She was started back on Pravastatin 10 mg QD at her last visit but she stopped it after a while when she noticed increased pain over her lower back and muscles since she started taking Pravastatin and now thinks that this was also the reason she stopped taking it previously Will D/C Pravastatin and try her instead on Rosuvastatin 5 mg - advised that she can start out by taking this every other day due to the comparatively longer half-life of Rosuvastatin compared to the other statins Advised that if she cannot tolerate this as well (could not tolerate Atorvastatin in the past for the same reason), we will then need to look into other non-statin alternatives Will recheck her labs and fasting lipid in 3 to 4 months for follow up (4) Obstructive sleep apnea: Comment: The last sleep study was in 2008. Severe degree of sleep apnea. AHI was 72/hr and the oxygen esau was 82% Code(s): G47.33 - Obstructive sleep apnea (adult) (pediatric) Plan: Has been using her CPAP device daily again when sleeping at night but feels that it has not been helping States that she has not had a sleep study done in over 10 years now (2008) and is wondering if her requirements have changed She was referred to and is now seeing Sleep Medicine for follow up and m anagement of her sleep apnea (5) Bilateral arm pain: Code(s): M79.601 - Pain in right arm; M79.602 - Pain in left arm Plan: Will send patient for EMG & NCV of the upper extremities for further evaluation and management (6) Bilateral leg pain: Code(s): M79.604 - Pain in right leg; M79.605 - Pain in left leg Plan: Was reportedly advised by vascular surgery recently that her symptoms do not appear to be vascular in origin Will send her for EMG & NCV of both lower extremities as well for further evaluation (7) Varicose veins of bilateral lower extremities with pain: Code(s): I83.813 - Varicose veins of bilateral lower extremities with pain Plan: Follow up with vascular surgery as scheduled (8) GERD without esophagitis: Code(s): K21.9 - Gastro-esophageal reflux disease without esophagitis Plan: Dietary restrictions reinforced Continue Omeprazole 40 mg QD Follow-up with GI as scheduled (9) Microscopic hematuria: Code(s): R31.29 - Other microscopic hematuria Plan: Is currently asymptomatic but patient still has trace amount of blood in her u rine at times Renal US done a few months ago revealed no hydronephrosis or nephrolithiasis; (+) right renal parenchymal cortical scarring noted (10) Alpha thalassemia trait: Code(s): D56.3 - Thalassemia minor Plan: Advised again that her H/H is normal but her CBC always present with microcytosis and hypochromia with a slightly elevated RBC count Reassured that no intervention is needed for this and we will just continue to monitor her CBC regularly (11) Insomnia: Code(s): G47.00 - Insomnia, unspecified Qualifiers: Insomnia type: primary Qualified Code(s): F51.01 - Primary insomnia Plan: Sleep hygiene reinforced Used to take Zolpidem 10 mg Q HS PRN but has not done so lately (12) Morbid obesity with BMI of 40.0-44.9, adult: Code(s): E66.01 - Morbid (severe) obesity due to excess calories; Z68.41 - Body mass index [BMI] 40.0-44.9, adult Plan: Reinforced diet/exercise as tolerated/lose weight Plan Follow up in August 2023 Orders: Orders TSH reflex Free T4 08/08/23 E78.00 - Pure hypercholesterolemia, unspecified UA CC w/rflx Micro + Cult 08/08/23 R30.0 - Dysuria Vitamin B12 and Folate 08/08/23 E53.8 - Deficiency of other specified B group vitamins NE nerve conduction velocity 03/16/23 M79.601 - Pain in right arm, M79.602 - Pain in left arm, M79.604 - Pain in right leg, M79.605 - Pain in left leg NE electromyogram (EMG) 03/16/23 M79.601 - Pain in right arm, M79.602 - Pain in left arm, M79.604 - Pain in right leg, M79.605 - Pain in left leg Complete Blood Count Auto Diff 08/08/23 I10 - Essential (primary) hypertension Comprehensive [place]. Panel Fast 08/08/23 E78.00 - Pure hypercholesterolemia, unspecified Lipid Panel 08/08/23 E78.00 - Pure hypercholesterolemia, unspecified Microalbumin, Random (w Creat) 08/08/23 E11.9 - Type 2 diabetes mellitus without complications Hemoglobin A1c 08/08/23 E11.9 - Type 2 diabetes mellitus without complications Vitamin D 25-OH Total 08/08/23 E55.9 - Vitamin D deficiency, unspecified CK, Total+Isoenzymes, Serum 08/08/23 M79.10 - Myalgia, unspecified site, M79.601 - Pain in right arm, M79.602 - Pain in left arm, M79.604 - Pain in right leg, M79.605 - Pain in left leg Medications: New rosuvastatin 5 mg PO DAILY 90 days 90 tabs 1RF Discontinued pravastatin Discontinued Reason: Doctor's Order 10 mg PO BEDTIME 90 days 90 tabs 3RF E78.5 - Hyperlipidemia, unspecified Coding Level of Care Code Est Pt Prev Care 40-64y(20353) Diagnoses Annual physical exam Z00.00 Type 2 diabetes mellitus without complication, without long-term current use of insulin E11.9 Diabetes mellitus type: type 2 Diabetes mellitus geographic information system surveyor insulin use: without geographic information system surveyor use Diabetes mellitus complication status: without complication Pure hypercholesterolemia E78.00 Obstructive sleep apnea G47.33 Bilateral arm pain M79.601; M79.602 Bilateral leg pain M79.604; M79.605 Varicose veins of bilateral lower extremities with pain I83.813 GERD without esophagitis K21.9 Microscopic hematuria R31.29 Alpha thalassemia trait D56.3 Primary insomnia F51.01 Insomnia type: primary Morbid obesity with BMI of 40.0-44.9, adult E66.01; Z68.41
== END 2023-03-16 15:00 | disposition home or self-care (01) ==
PROVIDERS: PCP Internal Medicine; Visit Provider Internal Medicine
DX: Z00.00 Encounter for general adult medical examination without abnormal findings (principal); E11.9 Type 2 diabetes mellitus without complications; E66.01 Morbid (severe) obesity due to excess calories; Z68.41 Body mass index [BMI] 40.0-44.9, adult; E78.00 Pure hypercholesterolemia, unspecified; M79.604 Pain in right leg; G47.33 Obstructive sleep apnea (adult) (pediatric); M79.601 Pain in right arm; M79.602 Pain in left arm; M79.605 Pain in left leg; I83.813 Varicose veins of bilateral lower extremities with pain; K21.9 Gastro-esophageal reflux disease without esophagitis
CPT/HCPCS: 99396

== ENCOUNTER 2023-03-29 10:25 | Outpatient (REF) | payer OTHER, SELFPAY ==
--- NOTE | 2023-03-29 10:30 | EMG_ITS ---
Left tibial and peroneal motor studies were performed. Left superficial peroneal and sural sensory studies were performed. Tibial H-reflex was obtained and paraspinal muscles were tested with a needle. IMPRESSION: 1. Moderately severe axonal sensory motor peripheral neuropathy. 2. Chronic left lower lumbar radiculopathy. MD GWYN Rosenbaum/RESHMA / [id number]
== END 2023-03-29 10:26 | disposition home or self-care (01) ==
LOC: HO.NEURO 10:25
PROVIDERS: PCP Internal Medicine; Visit Provider Internal Medicine
DX: M79.601 Pain in right arm (principal); M79.602 Pain in left arm; M79.604 Pain in right leg; M79.605 Pain in left leg
CPT/HCPCS: 95886; 95913

== ENCOUNTER 2023-04-05 09:12 | Outpatient (AMB) | payer OTHER, SELFPAY ==
[2023-04-05 09:16] VITALS: BP 128/76; PULSE 88; O2SAT 97; BMI 44.3
--- NOTE | 2023-04-05 09:16 | MHC.OFFVIS ---
Intake Vital Signs 04/05/23 09:16 Height 5 ft Weight 227 lb BMI 44.3 BP 128/76 Blood Pressure Location Rt brachial Position Sitting Pulse 88 Pulse Source Pulse Oximeter Pulse Oximetry (%) 97 Oxygen Delivery Method Room Air Intake Visit Reasons: FU Intake Note: Pt presents to the office today for a follow up for . Pt states her left leg is still worse than her right. Pt states both of her feet are always cold. Pt states she will get numbness and tingling in her feet once in a while. Allergies atorvastatin Adverse Reaction (Intermediate, Verified 04/05/23 09:18) myalgia, low back pain pravastatin Adverse Reaction (Intermediate, Verified 04/05/23 09:18) myalgia, low back pain IVP dye Allergy (Mild, Uncoded 04/05/23 09:18) Nausea HPI FU HPI Details Very pleasant obese 62-year-old female presents for follow-up evaluation regarding lower extremity swelling. She has had venous insufficiency testing. She has tried compression but had some minimal relief. She now presents for follow-up. 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 Maternal Uncle No problems noted. Mother Cardiovascular disease Liver cancer Breast cancer Father No problems noted. Maternal Aunt No problems noted. 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 Cognitive needs: No Hearing needs: No Vision needs: Yes Review of Systems Const All systems reviewed & are unremarkable except as noted in HPI and below Reports no additional complaints ENT Reports Normal hearing present Card Denies chest pain, Denies chest pain at rest, Denies chest pain with activity and Denies pedal edema Resp Denies cough GI Denies abdominal pain Musc Denies abnormal gait, Denies muscle cramps and Denies radiating pain into limb Skin/Breast Denies skin ulcer and Denies wounds Neuro Reports Normal hearing present and Denies abnormal gait Psych Reports no additional complaints Physical Exam Vital Signs: Last Vital Signs Pulse 88 04/05/23 09:16 BP 128/76 04/05/23 09:16 Pulse Ox 97 04/05/23 09:16 Oxygen Delivery Method Room Air 04/05/23 09:16 BMI result Body Mass Index 44.3 Const General: cooperative, healthy appearing and comfortable Orientation/consciousness: oriented to person, oriented to place and oriented to time HEENT Head: Yes normal to inspection Neck Neck: Yes normal visual inspection Carotids: no bruits Chest Chest palpation & inspection: normal inspection of the chest Resp Effort & Inspection: normal respiratory effort and able to speak in complete sentences Auscultation: clear to auscultation bilaterally, no crackles, no rales, no rhonchi and no wheezes Cardio Rate: regular rate Rhythm: regular rhythm Heart sounds: S1 normal heart sound present and S2 normal heart sound present Bruits: no carotid bruits Peripheral pulses: Peripheral pulses 2+ throughout GI Inspection: Yes normal to inspection Skin Wounds: no wounds Hair: normal Neuro General: oriented to person, oriented to place and oriented to time Cranial nerves: Yes CN's II-XII intact bilaterally and Yes Normal hearing present Cognition (Neuro): normal cognition Motor exam (neuro): 5/5 motor strength present throughout Extrem Other: venous exam: +2 edema General: No clubbing, No cyanosis and Yes edema Psych Appearance: grossly normal Mental Status: mental status grossly normal Speech and movement: Normal speech and movement present Results Reviewed Results Reviewed: Brief summary of venous insufficiency testing is as follows: right great saphenous vein: negative right small saphenous vein: negative right accessory vein: none present left great saphenous vein: negative left small saphenous vein: negative left accessory vein: none present Please note there is no evidence of any venous aneurysms or significant tortuosity Assessment & Plan Assessment & Plan (1) Varicose veins of left lower extremity with inflammation: Code(s): I83.12 - Varicose veins of left lower extremity with inflammation Plan: In short patient has venous insufficiency testing is essentially negative. There is only 1 focally positive spot of the right knee which I would not treat. We did discuss routine conservative measures including compression elevation and exercise. The patient will follow up with us on an as-needed basis. Thank you for allowing us to assist in her care. If there are any questions or concerns please do not hesitate to contact us. Coding Level of Care Code Est Pt Level 4 (57176) Diagnoses Varicose veins of left lower extremity with inflammation I83.12
== END 2023-04-05 10:01 | disposition home or self-care (01) ==
PROVIDERS: PCP Internal Medicine; Visit Provider Surgery Vascular Surgery
DX: I83.12 Varicose veins of left lower extremity with inflammation (principal)
CPT/HCPCS: 99213

== ENCOUNTER → 2023-04-05 09:12 | Outpatient (BNVA) | payer OTHER, SELFPAY | PROVIDERS: PCP Internal Medicine; Visit Provider Surgery Vascular Surgery ==

== ENCOUNTER 2023-04-16 09:35 | Emergency (ER) | payer BC, SELFPAY ==
[2023-04-16 10:02] VITALS: BP 133/58; PULSE 95; RESP 20; TEMP 36.5; O2SAT 99; BMI 46.0
[2023-04-16 11:01] LABS: MANUAL DIFF FLAG NO
[2023-04-16 11:02] LABS: Basophils Absolute Auto 0.1 X10*3/uL (0.0-0.2); Basophils Percent Auto 0.3 % (0-2); Eosinophils Percent Auto 0.2 % (0-4); Hematocrit 46.6 % (37.0-47.0); Hemoglobin 14.2 g/dl (12.0-16.0); Imm Gran Abs Auto 0.16 X10*3/uL (0.00-0.03); Imm Gran Pct Auto 0.9 % (0.0-0.4); Lymphocytes Percent Auto 5.6 % (20-40); Mean Corpuscular HGB Conc 30.5 g/dl (31.0-35.0); Mean Corpuscular Hemoglobin 19.6 pg (27.0-33.0); Mean Platelet Volume 9.5 fL (9.4-12.3); Monocytes Absolute Auto 0.7 X10*3/uL (0.1-1.2); Neutrophils Absolute Auto 16.5 x10*3/uL (2.0-8.3); Platelet Count 277 X10*3/uL (160-400); Red Blood Count 7.26 X10*6/uL (4.20-5.50); White Blood Count 18.5 X10*3/uL (4.8-10.8)
[2023-04-16 11:04] LABS: Mean Corpuscular Volume 64.2 fL (80.0-98.0)
[2023-04-16 11:18] LABS: Anion Gap 15 (12-20); Blood Urea Nitrogen 18 mg/dL (9-16); Calcium 9.2 mg/dL (8.4-10.2); Carbon Dioxide 24 mmol/L (22-29); Chloride 104 mmol/L (96-108); Creatinine Clr Calc Pharmacy 67.6; Estimated Glomerular Filt Rate > 60; Glucose Random 263 mg/dL (60-115); Potassium 4.4 mmol/L (3.3-5.1); Sodium 139 mmol/L (135-145)
[2023-04-16 11:38] LABS: Influenza A PCR NEGATIVE (Negative); Influenza B PCR NEGATIVE (Negative); Resp Syncy Virus RNA Qual PCR NEGATIVE (Negative); SARS COV2 PCR INHOUSE NEGATIVE (Negative)
== END 2023-04-16 16:14 | disposition left against medical advice (07) ==
PROVIDERS: Emergency Provider Emergency Medicine; PCP Internal Medicine
DX: R11.2 Nausea with vomiting, unspecified (principal); Z20.822 Contact with and (suspected) exposure to COVID-19; Z20.828 Contact with and (suspected) exposure to other viral communicable diseases; Z79.899 Other long term (current) drug therapy
CPT/HCPCS: 0241U; 80048; 85025; 99281; 99283

== ENCOUNTER 2023-08-15 12:24 | Outpatient (REF) | payer BC, SELFPAY ==
[2023-08-15 12:38] LABS: MANUAL DIFF FLAG NO
[2023-08-15 12:40] LABS: Basophils Absolute Auto 0.1 X10*3/uL (0.0-0.2); Basophils Percent Auto 0.6 % (0-2); Eosinophils Absolute Auto 0.3 X10*3/uL (0.0-0.4); Eosinophils Percent Auto 3.1 % (0-4); Hematocrit 41.5 % (37.0-47.0); Hemoglobin 12.6 g/dl (12.0-16.0); Imm Gran Abs Auto 0.07 X10*3/uL (0.00-0.03); Imm Gran Pct Auto 0.8 % (0.0-0.4); Lymphocytes Absolute Auto 2.2 X10*3/uL (1.2-4.9); Lymphocytes Percent Auto 24.3 % (20-40); Mean Corpuscular HGB Conc 30.4 g/dl (31.0-35.0); Mean Corpuscular Hemoglobin 19.7 pg (27.0-33.0); Mean Platelet Volume 9.5 fL (9.4-12.3); Monocytes Absolute Auto 0.6 X10*3/uL (0.1-1.2); Monocytes Percent Auto 6.4 % (2-11); Neutrophils Absolute Auto 5.8 x10*3/uL (2.0-8.3); Neutrophils Percent Auto 64.8 % (45-73); Platelet Count 251 X10*3/uL (160-400); Red Blood Count 6.38 X10*6/uL (4.20-5.50); Red Cell Distribution Width 18.1 % (11.0-16.0); White Blood Count 8.9 X10*3/uL (4.8-10.8)
[2023-08-15 13:14] LABS: Alanine Aminotransferase 14 U/L (0-31); Albumin Level 3.9 g/dL (3.5-5.0); Alkaline Phosphatase 77 U/L (39-117); Anion Gap 13 (12-20); Aspartate Amino Transferase 15 U/L (5-31); Bilirubin Total 0.4 mg/dL (0.0-1.0); Blood Urea Nitrogen 14 mg/dL (9-16); Calcium 9.4 mg/dL (8.4-10.2); Carbon Dioxide 27 mmol/L (22-29); Chloride 106 mmol/L (96-108); Cholesterol 88 mg/dL (<200); Estimated Glomerular Filt Rate > 60; Glucose Fasting 154 mg/dL (60-99); HDL Cholesterol 36 mg/dL (>40); LDL Cholesterol Calculated 42 mg/dL (<100); Sodium 142 mmol/L (135-145); Total Protein 7.2 g/dL (6.5-8.0); Triglycerides 50 mg/dL (<150)
[2023-08-15 13:30] LABS: TSH reflex Free T4 1.33 uIU/mL (0.32-4.0); Vitamin D 25-OH Total 32.2 ng/mL (>30)
[2023-08-15 13:48] LABS: Appearance Urine Cloudy; Color Urine Yellow; Glucose Urine UA Negative (Negative); Leukocyte Esterase Urine Moderate (2+) (Negative); Nitrite Urine Negative (Negative); PH 5.5 (5.0-9.0); Specific Gravity - Urine 1.025 (1.005-1.025); UMIC TRIGGER UACC YES; Urine Blood Negative (Negative); Urine Ketones Negative (Negative); Urine Protein Negative (Neg-Trace)
[2023-08-15 13:50] LABS: Bacteria Urine None Seen (None Seen); Hyaline Casts Urine 0-2 /LPF (0-2); RBC Urine 0-2 /HPF (0-2); UACC Culture Trigger YES; WBC Urine 21-50 /HPF (0-5)
[2023-08-15 13:51] LABS: Estimated Average Glucose 157 mg/dL; Hemoglobin A1c % 7.1 % (<6.0)
[2023-08-15 14:11] LABS: Folate 6.5 ng/mL (> or = 4.0); Vitamin B12 349 pg/mL (200-900)
[2023-08-15 14:15] LABS: Creatinine Urine 118.27 mg/dL; Microalbum/Creatinine Ratio Ur 13.5 ug/mg cr (<30)
[2023-08-19 19:59] LABS: CK-BB None Detected (None Detected); CK-MB 0 % (<5); CK-MM 100 % (95-100); Creatine Kinase,Total,Serum 65 U/L (29-143)
== END 2023-08-15 12:25 | disposition home or self-care (01) ==
LOC: HO.LAB 12:24
PROVIDERS: Absent Provider Internal Medicine Endocrinology, Diabetes & Metabolism; PCP Internal Medicine; Visit Provider Internal Medicine
DX: E78.00 Pure hypercholesterolemia, unspecified (principal); E53.8 Deficiency of other specified B group vitamins; I10 Essential (primary) hypertension; E11.9 Type 2 diabetes mellitus without complications; E55.9 Vitamin D deficiency, unspecified; M79.10 Myalgia, unspecified site; M79.604 Pain in right leg; M79.605 Pain in left leg; M79.601 Pain in right arm; M79.602 Pain in left arm; R30.0 Dysuria
CPT/HCPCS: 36415; 80053; 80061; 81001; 82043; 82306; 82552; 82570; 82607; 82746; 83036; 84443; 85025; 87086

== ENCOUNTER 2023-08-20 13:51 | Outpatient (AMB) | payer BC, OTHER, SELFPAY ==
[2023-08-20 13:52] VITALS: BP 110/78; PULSE 88; BMI 43.1
--- NOTE | 2023-08-20 13:52 | MHC.OFFVIS ---
Vital Signs 08/20/23 13:52 Height 5 ft Weight 220 lb 14.451 oz BMI 43.1 BP 110/78 Blood Pressure Location Rt brachial Position Sitting Pulse 88 Pulse Source Pulse Oximeter Intake Visit Reasons: DM-LVM Intake Note: Patient present today to follow up on Type 2 Diabetes Mellitus. Last Diabetic Eye exam: 11/2022 Last Podiatry Visit: Doesn't have one Random Glucose: 154 mg/dl HgA1C: 7.1% 08/15/23 Nurse Ldr Required: No Accompanied by: Self / Same As Patient Allergies atorvastatin Adverse Reaction (Intermediate, Verified 08/20/23 13:57) myalgia, low back pain pravastatin Adverse Reaction (Intermediate, Verified 08/20/23 13:57) myalgia, low back pain IVP dye Allergy (Mild, Uncoded 08/20/23 13:57) Nausea Medication List - Last Reconciled 08/20/23 by Jimmy Biswas MD blood sugar diagnostic As directed flash glucose sensor (FreeStyle Tara 2 Sensor kit) USED TO CON'T MONITOR BLOOD SUGAR insulin glargine (Lantus Solostar U-100 Insulin) 30 units (0.3 mL) subcut BID metformin ER 1,500 mg PO BID omeprazole 40 mg PO DAILY pantoprazole 40 mg PO BID pen needle, diabetic (BD Brie 2nd Gen Pen Needle) Twice a day rosuvastatin 5 mg PO DAILY 90 days tirzepatide (Mounjaro) 2.5 mg (0.5 mL) subcut QWEEK 4 weeks HPI Comments Details: 63 yo female today for fup visit , She is feeling well. Unable to download CGMS. from viewing on smart phone patient is not scanning that frequently She has DM type 2 diagnosed 2012. She is Currently on Metformin 1000 mg extended release , Lantus 30 units BID , Jardiance 25 mg QD-stopped because of yeast infections . Mounjaro 2.5 mg Qwkly Tara download shows she is using the CGMS 42% of the time. Average glucose is 167 with G mi of 7.3%. Variability is 18.9%. 71% in target with 28% hyperglycemia and 1% very hyperglycemic. Patent shows elevation in glucose post-lunch No hypoglycemia Complications: no retinopathy, nephropathy, neuropathy, CVA, CAD, PVD. Last ophthalmology evaluation: 9 mos a go . no need for photocoagulation or VEGF therapy. . She deneis numbness, tingling, blurred vision. Her weight is stable. Laboratory Tests 08/30/18 11/08/18 12/06/18 13:14 12:00 11:17 Hgb Hct Sodium Potassium Creatinine Estimated GFR Fasting Glucose Estimat Average Glucose Hemoglobin A1c 6.5 Hgb A1c Fingerstick 7.8 Hemoglobin A1c % Calcium AST ALT Albumin Triglycerides Cholesterol LDL Cholesterol Direct 87 LDL Cholesterol, Calc HDL Cholesterol TSH Urine Creatinine Urine Microalbumin Microalb/Creat Ratio 06/14/20 06/14/20 06/14/20 11:11 11:11 11:11 Hgb Hct Sodium 142 Potassium 4.3 Creatinine 0.73 Estimated GFR > 60 Fasting Glucose 113 H Estimat Average Glucose 160 Hemoglobin A1c Hgb A1c Fingerstick Hemoglobin A1c % 7.2 Calcium 8.9 AST 14 ALT 15 Albumin 4.0 Triglycerides 74 Cholesterol 137 LDL Cholesterol Direct LDL Cholesterol, Calc 81 HDL Cholesterol 42 TSH 0.61 Urine Creatinine 54.13 Urine Microalbumin 9.0 Microalb/Creat Ratio 16.6 06/14/20 11:11 Hgb 13.9 Hct 45.6 Sodium Potassium Creatinine Estimated GFR Fasting Glucose Estimat Average Glucose Hemoglobin A1c Hgb A1c Fingerstick Hemoglobin A1c % Calcium AST ALT Albumin Triglycerides Cholesterol LDL Cholesterol Direct LDL Cholesterol, Calc HDL Cholesterol TSH Urine Creatinine Urine Microalbumin Microalb/Creat Ratio [facility] Medical History Alpha thalassemia trait Diabetic 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 Maternal Uncle No problems noted. Mother Cardiovascular disease Liver cancer Breast cancer Father No problems noted. Maternal Aunt No problems noted. 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 Absence of acromegalic features. Neck exam reveals nl size thyroid about 15 gms. No thyroid nodules palpable. No carotid bruits present. Lungs CTA. Heart S1 S2, Reg R/R. No M/R/ G. Skin exam reveals absence of vitiligo or acanthosis nigricans. Abdominal exam reveals Soft NT/ND with NA BS. No organomegaly present. Neck Other: . Extrem Other: Visual exam of foot performed. No ulcerations or open lesions. No onchomycosis, no callouses.Pulses 2 + distally Sensation intact to monofilament exam. Vibratory sensation sensed is intact with 128 Hz tuning fork Assessment & Plan Assessment & Plan (1) Diabetes type 2, controlled: Code(s): E11.9 - Type 2 diabetes mellitus without complications Category: Medical Qualifiers: Diabetes mellitus intermediate manager insulin use: with intermediate manager use Diabetes mellitus complication status: with kidney complications Diabetes mellitus complication detail: with microalbuminuria Qualified Code(s): E11.29 - Type 2 diabetes mellitus with other diabetic kidney complication; R80.9 - Proteinuria, unspecified; Z79.4 - prison (current) use of insulin Plan: This is a 62-year-old white female with history of type 2 diabetes being treated with metformin, Lantus and Mounjaro with improved good glycemic control and no known microvascular or macrovascular complications Plan is to decrease Lantus to once daily. Would attempt to increase the Mounjaro to 7.5 mg if it is available if not we will give the dose available at 2.5 mg. Patient may need further adjustment of Lantus depending on overnight blood sugars and/or a dose of short-acting analog like Humalog prior to lunch if she continues to have post-lunch hyperglycemia. She will follow up with the special education paraeducator Medications: Changed From insulin glargine (Lantus Solostar U-100 Insulin) 30 units (0.3 mL) subcut BID 30 mL 6RF To insulin glargine (Lantus Solostar U-100 Insulin) 30 units (0.3 mL) subcut DAILY 30 mL 6RF Refilled tirzepatide (Mounjaro) 2.5 mg (0.5 mL) subcut QWEEK 4 weeks 2 mL 5RF Coding Level of Care Code Est Pt Level 4 (63221) Diagnoses Controlled type 2 diabetes mellitus with microalbuminuria, with long-term current use of insulin E11.29; R80.9; Z79.4 Diabetes mellitus intermediate manager insulin use: with intermediate manager use Diabetes mellitus complication status: with kidney complications Diabetes mellitus complication detail: with microalbuminuria
[2023-08-20 14:03] LABS: Glucose, Whole Blood 154 mg/dL (60-115)
== END 2023-08-20 14:28 | disposition home or self-care (01) ==
PROVIDERS: PCP Internal Medicine; Visit Provider Internal Medicine Endocrinology, Diabetes & Metabolism
DX: E11.29 Type 2 diabetes mellitus with other diabetic kidney complication (principal); R80.9 Proteinuria, unspecified; Z79.4 Long term (current) use of insulin
CPT/HCPCS: 99214

== ENCOUNTER → 2023-08-20 13:51 | Outpatient (BNVA) | payer BC, SELFPAY | PROVIDERS: PCP Internal Medicine; Visit Provider Internal Medicine Endocrinology, Diabetes & Metabolism | DX: E11.29 Type 2 diabetes mellitus with other diabetic kidney complication (principal); R80.9 Proteinuria, unspecified; Z79.4 Long term (current) use of insulin | CPT/HCPCS: 82947 ==

== ENCOUNTER 2023-08-31 14:08 | Outpatient (AMB) | payer BC, SELFPAY ==
[2023-08-31 14:23] VITALS: BP 118/70; PULSE 86; TEMP 36.6; O2SAT 98; BMI 43.0
--- NOTE | 2023-08-31 14:23 | MHC.OFFWIV ---
Intake Vital Signs 08/31/23 14:23 Height 5 ft Weight 220 lb BMI 43.0 BP 118/70 Blood Pressure Location Rt brachial Position Sitting Pulse 86 Pulse Source Pulse Oximeter Temp 97.9 F Temp Source Temporal Artery Scan Pulse Oximetry (%) 98 Intake Visit Reasons: EP rt side pain Intake Note: pt is here for right side pain unsure the cause Patient Tobacco Use Status: Former Tobacco user Allergies atorvastatin Adverse Reaction (Intermediate, Verified 08/31/23 14:25) myalgia, low back pain pravastatin Adverse Reaction (Intermediate, Verified 08/31/23 14:25) myalgia, low back pain IVP dye Allergy (Mild, Uncoded 08/20/23 13:57) Nausea Do you need a note to return to daycare/school/sports/work: No HPI HPI Comments History of Present Illness Details 63 y/o female patient who presents to walk in clinic with c/o right sided upper Abdominal pain x 1 week. She has tried OTC pain relief medicines with no much relief. Denies N/V/C or Diarrhea. H/o Obesity, T2DM and Fatty liver. 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 Maternal Uncle No problems noted. Mother Cardiovascular disease Liver cancer Breast cancer Father No problems noted. Maternal Aunt No problems noted. 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 Cognitive needs: No Hearing needs: No Vision needs: Yes Physical Exam Vital Signs: Last Vital Signs Temp 97.9 F 08/31/23 14:23 Pulse 86 08/31/23 14:23 BP 118/70 08/31/23 14:23 Pulse Ox 98 08/31/23 14:23 BMI result Body Mass Index 43.0 Const General: comfortable and no acute distress Nutritional Appearance: obese morbidly obese Orientation/consciousness: patient oriented x3 GI Inspection: Yes Abdominal panniculus present and Yes obesity Palpation (GI): Soft to palpation, not firm, Tenderness to palpation present (GI) in the RLQ and in the RUQ, no guarding, not rigid and No hepatosplenomegaly present Auscultation: normal bowel sounds Neuro General: patient oriented x3, gait normal and moves all extremities Psych Speech and movement: Normal speech and movement present Assessment & Plan Assessment & Plan (1) Right upper quadrant abdominal pain: Code(s): R10.11 - Right upper quadrant pain Plan: DDx's: Muscular vs Fatty liver disease Lidocaine Patches and Acetaminophen for pain relief F/U with GI as scheduled Weight loss, f/u with Endocrinology and 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 Medications: New lidocaine 5% leave on most painful area for up to 12 hrs 1 patch topical DAILY 30 ea 0RF R10.11 - Right upper quadrant pain Coding Level of Care Code Est Pt Level 3 (62499) Diagnoses Right upper quadrant abdominal pain R10.11 Time Spent (min) 15
== END 2023-08-31 15:59 | disposition home or self-care (01) ==
PROVIDERS: PCP Internal Medicine; Visit Provider Nurse Practitioner Family
DX: R10.11 Right upper quadrant pain (principal)
CPT/HCPCS: 99213

== ENCOUNTER 2023-09-07 12:40 | Outpatient (AMB) | payer BC, SELFPAY ==
[2023-09-07 12:45] VITALS: BP 120/74; PULSE 90; O2SAT 99; BMI 43.2
--- NOTE | 2023-09-07 12:45 | MHC.PC.OV ---
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: No Audit Control Clerk: Not Required per policy Accompanied by: Self / Same As Patient Allergies atorvastatin Adverse Reaction (Intermediate, Verified 09/07/23 12:59) myalgia, low back pain pravastatin Adverse Reaction (Intermediate, Verified 09/07/23 12:59) myalgia, low back pain IVP dye Allergy (Mild, Uncoded 09/07/23 12:59) Nausea Medication List - Last Reconciled 09/07/23 by Salvatore Gramajo MD blood sugar diagnostic As directed flash glucose sensor (FreeStyle Tara 2 Sensor kit) USED TO CON'T MONITOR BLOOD SUGAR insulin glargine (Lantus Solostar U-100 Insulin) 30 units (0.3 mL) subcut DAILY lidocaine 5% 1 patch topical DAILY metformin ER 1,500 mg PO BID omeprazole 40 mg PO DAILY pantoprazole 40 mg PO BID pen needle, diabetic (BD Brie 2nd Gen Pen Needle) Twice a day tirzepatide (Mounjaro) mg subcut Tobacco use date assessed: 09/07/23 Fall risk assessment: No Falls in past year Last assessed Fall Risk: 09/07/23 Dental Screening Dental Screen Date: 09/07/23 Did you have a dental visit in the last 12 months?: Yes Did you have a dental problem in the last 6 months where you did not have access to dental care?: No Was dental information given to patient?: Patient has dentist HPI Lump on breast HPI Details Patient comes in today for further evaluation of a small but slightly painful lump close to her right flank area that she first felt a couple of weeks ago States that she went to the walk-in clinic last week to have these checked out and after being reportedly advised that these could possibly be related to her liver (fatty liver disease) or her kidneys because of their location, she became more worried and is wondering if she should get some imaging studies done to look into these States that her diabetes has been doing better lately (HgbA1c was down to 7.1% on her labs done a few weeks ago) but she had some dosage adjustments made to her meds since her last visit here She currently denies any other acute complaints or symptoms [facility] Medical History Alpha thalassemia trait Diabetic nephropathy associated with type 2 diabetes mellitus 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 Maternal Uncle No problems noted. Mother Cardiovascular disease Liver cancer Breast cancer Father No problems noted. Maternal Aunt No problems noted. 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 1. Little interest or pleasure in doing things: not at all 2. Feeling down, depressed, or hopeless: not at all 3. Trouble falling or staying asleep, or sleeping too much: not at all 4. Feeling tired or having little energy: not at all 5. Poor appetite or overeating: not at all 6. Feeling bad about yourself - or that you are a failure or have let yourself or your family down: not at all 7. Trouble concentrating on things, such as reading the newspaper or watching television: not at all 8. Moving or speaking so slowly that other people could have noticed. Or the opposite - being so fidgety or restless that you have been moving around a lot more than usual: not at all 9. Thoughts that you would be better off or of hurting yourself in some way: not at all Total score: 0 Depression Screening Interpretation: Negative Depression Screening Done: Yes 94036 - PHQ-9 Billing: Yes Source: Developed by Drs. Jimmy Richey, Angelica Calderon, Hernandez Gold and colleagues, with an educational joi from Currently. Thrive Questionnaire Date Thrive assessed: 09/07/23 I am a: Patient What is your living situation today?: I have a steady place to live Within the past 12 months, did the food you bought not last and you didn't have the money to get more?: Never true Within the past 12 months, did you worry whether your food would run out before you got money to buy more?: Never true Do you have trouble paying for medicines?: No Do you have trouble getting transportation to medical appointments?: No Do you have trouble paying your heating and electricity bill?: No Do you have trouble taking care of your child, family member or friend?: No Do you have trouble with day-to-day activities such as bathing, preparing meals, shopping, managing finances, etc.?: No Are you currently unemployed and looking for a job?: No Are you interested in more education?: No Please select the resources that you would like help with: None Currently or been in a relationship where the following occur: no concerns reported THRIVE Score: 0 AUDIT C Alcohol Use Questionnaire (AUDIT-C) 1. How often do you have a drink containing alcohol?: Never 3. How often do you have six or more drinks on one occasion?: Never Total Score: 0 Score Reviewed/Action Taken: Yes ANUPAMA-7 AMB Questionnaire ANUPAMA-7 Date ANUPAMA - 7 assessed: 09/07/23 Feeling nervous, anxious, or on edge: 0 = Not at all Not being able to stop or control worryin = Not at all Worrying too much about different things: 0 = Not at all Trouble relaxin = Not at all Being so restless that it is hard to sit still: 0 = Not at all Becoming easily annoyed or irritable: 0 = Not at all Feeling afraid as if something awful might happen: 0 = Not at all Total ANUPAMA-7 score (0-4 normal; 5-9 mild; 10-14 moderate; 15-21 severe): 0 Source: Developed by Drs. Jimmy Richey, Angelica Calderon, Hernandez Gold and colleagues, with an educational joi from Currently. Review of Systems Const Denies chills, Denies fatigue, Denies fever(s) and Denies headache(s) ENT Denies dysphagia, Denies dizziness, Denies otalgia, Denies headache(s), Denies neck pain, Denies odynophagia and Denies sore throat Card Denies chest pain, Denies rapid heart rate, Denies irregular heart rhythm, Denies palpitations and Denies dyspnea Resp Denies chest congestion, Denies cough, Denies dyspnea and Denies wheezing GI Denies abdominal pain, Denies constipation, Denies dysphagia, Denies heartburn, Denies diarrhea, Denies nausea, Denies odynophagia and Denies vomiting Denies hematuria, Denies urinary frequency and Denies dysuria Musc Details: pain over varicosities, aching of lower extremities, swelling, cramping, heaviness and tiredness, itching; (+) recurrent bilateral arm pain Denies back pain, Denies arthralgias and Denies neck pain Skin/Breast Details: (+) small nodular lesion over the right flank area Denies rash Neuro Denies dizziness, Denies headache(s) and Denies paresthesias Psych Denies anxiety and Denies depression Endo Denies fatigue and Denies palpitations Aller/Immun Denies wheezing Physical exam (Primary Care) Vital Signs: Last Vital Signs Pulse 90 09/07/23 12:45 BP 120/74 09/07/23 12:45 Pulse Ox 99 09/07/23 12:45 Oxygen Delivery Method Room Air 09/07/23 12:45 BMI result Body Mass Index 43.2 Tobacco/Smoking Status: Tobacco use Status Tobacco use date assessed 09/07/23 09/07/23 12:46 Patient Tobacco Use Status Former Tobacco user 09/07/23 12:46 Tobacco use type Cigarette 09/07/23 12:46 e-Cigarette/Vaping Use Never Used 09/07/23 12:46 PHQ-9: PHQ-9 Score PHQ-9: Total score 0 09/07/23 12:46 Depression Screening Interpretation: Negative Thrive Assessment: Date of Thrive Assessment Date Thrive assessed 09/07/23 09/07/23 12:46 Currently or been in a relationship where the following occur: no concerns reported Const General: no acute distress and alert HENMT Ears: TM's normal bilaterally and EAC's normal Throat: Yes posterior oropharynx normal and Yes tonsils normal (no TP congestion) Neck Neck: Yes no lymphadenopathy and Yes supple Thyroid: Thyroid normal Resp Auscultation: clear to auscultation bilaterally, no rales and no wheezes Cardio Rate: regular rate Rhythm: regular rhythm Heart sounds: no murmurs GI Palpation (GI): Soft to palpation and nontender Auscultation: normal bowel sounds General: Yes no CVA tenderness Back/Spine/Pelvis Back: no CVA tenderness Skin Other: (+) small, slightly tender nodular lesion noted on deep palpation over the medial right flank area adjacent to the right paraspinal muscles along the upper lumbar region Rashes: no rashes Extrem General: Yes no clubbing, cyanosis or edema Assessment and Plan Assessment & Plan (1) Subcutaneous nodule: Code(s): R22.9 - Localized swelling, mass and lump, unspecified Plan: Patient is advised that the nodule she has over her right flank area at present is likely either a subcutaneous nodule or a lipoma She is reassured that this is most likely a benign issue and has nothing to do with her liver of kidneys and unless the nodule enlarges or grows progressively more painful, imaging studies are not warranted at this time Have advised her that it seems slightly painful, especially on deep palpation, and it is likely that her pressing on it multiple times over the past couple of weeks may have aggravated or irritated it Have advised her to try applying some warm compress over her right flank area PRN for now and to refrain from looking for and pressing on the nodule repeatedly from now on Have advised her that obviously, if anything regarding this changes and get worse, she is to notify us ZAIDA to see what we need to do then (2) Diabetes mellitus: Code(s): E11.9 - Type 2 diabetes mellitus without complications Qualifiers: Diabetes mellitus type: type 2 Diabetes mellitus penitentiary insulin use: without intermediate manager use Diabetes mellitus complication status: without complication Qualified Code(s): E11.9 - Type 2 diabetes mellitus without complications Plan: Her HgbA1c was most recently at 7.1% on her labs done a few weeks ago (it was at 9.0% a few months ago) - goal is < 7.0% Reinforced diabetic diet Continue Metformin ER 1500 mg BID, Mounjaro 5 mg SQ once a week and Lantus 30 units BID - she was switched from Soliqua 100-33 units-mcg/ml 24 units in AM and 20 units in PM by Dr. Biswas; Jardiance was also discontinued by endocrinology a few months ago due to frequent yeast infections Follow up with Endocrinology as scheduled Will also have her recheck some labs before she returns for her follow up appt in October 2023 Plan Follow up as scheduled in October 2023 Orders: Orders Comprehensive [place]. Panel Fast 10/13/23 E78.00 - Pure hypercholesterolemia, unspecified Lipid Panel 10/13/23 E78.00 - Pure hypercholesterolemia, unspecified Hemoglobin A1c 10/13/23 E11.9 - Type 2 diabetes mellitus without complications Microalbumin, Random (w Creat) 10/13/23 E11.9 - Type 2 diabetes mellitus without complications UA CC w/rflx Micro + Cult 10/13/23 R30.0 - Dysuria Medications: New tirzepatide (Mounjaro) 5 mg subcut QWEEK Coding Level of Care Code Est Pt Level 3 (39088) Diagnoses Subcutaneous nodule R22.9 Type 2 diabetes mellitus without complication, without long-term current use of insulin E11.9 Diabetes mellitus type: type 2 Diabetes mellitus penitentiary insulin use: without intermediate manager use Diabetes mellitus complication status: without complication
== END 2023-09-07 13:13 | disposition home or self-care (01) ==
PROVIDERS: PCP Internal Medicine; Visit Provider Internal Medicine
DX: R22.9 Localized swelling, mass and lump, unspecified (principal); E11.9 Type 2 diabetes mellitus without complications
CPT/HCPCS: 99213

== ENCOUNTER 2023-09-13 10:58 | Outpatient (AMB) | payer BC, SELFPAY ==
--- NOTE | 2023-09-13 11:38 | A.OFFVIS_ITS ---
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: No Accompanied by: Self / Same As Patient Allergies atorvastatin Adverse Reaction (Intermediate, Verified 09/07/23 12:59) myalgia, low back pain pravastatin Adverse Reaction (Intermediate, Verified 09/07/23 12:59) myalgia, low back pain IVP dye Allergy (Mild, Uncoded 09/07/23 12:59) Nausea HPI Comprehensive Diabetes Asmnt Most Recent Diabetes Results: Hemoglobin A1c 6.5 % 12/06/18 Microalb/Creat Ratio 13.5 ug/mg cr (<30) 08/15/23 Cholesterol 88 mg/dL (<200) 08/15/23 HDL Cholesterol 36 mg/dL (>40) L 08/15/23 Triglycerides 50 mg/dL (<150) 08/15/23 Creatinine 0.77 mg/dL (0.5-1.4) 08/15/23 Blood Urea Nitrogen 14 mg/dL (9-16) 08/15/23 Sodium 142 mmol/L (135-145) 08/15/23 Potassium 4.0 mmol/L (3.3-5.1) 08/15/23 Chloride 106 mmol/L (96-108) 08/15/23 Carbon Dioxide 27 mmol/L (22-29) 08/15/23 Calcium 9.4 mg/dL (8.4-10.2) 08/15/23 AST 15 U/L (5-31) 08/15/23 ALT 14 U/L (0-31) 08/15/23 Total Protein 7.2 g/dL (6.5-8.0) 08/15/23 Albumin 3.9 g/dL (3.5-5.0) 08/15/23 [facility] Medical History Alpha thalassemia trait Diabetic nephropathy associated with type 2 diabetes mellitus alf (current) use of insulin Morbid obesity with BMI of 40.0-44.9, adult Insomnia GERD without esophagitis Obstructive sleep apnea Thalassemia trait History of left breast cancer (~2000) Pure hypercholesterolemia Diabetes mellitus Dyslipidemia Diabetes type 2, controlled Surgical History Hx of colonoscopy (~03/19/15) S/P lumpectomy, left breast Hx of ventral hernia repair (~2003) S/P bilateral oophorectomy (~2002) S/P radical vaginal hysterectomy (~1989) Family History Paternal Aunt No problems noted. Maternal Uncle No problems noted. Mother Cardiovascular disease Liver cancer Breast cancer Father No problems noted. Maternal Aunt No problems noted. 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 Cognitive needs: No Hearing needs: No Vision needs: Yes (glasses) Assessment & Plan Assessment & Plan (1) Diabetes type 2, controlled: Code(s): E11.9 - Type 2 diabetes mellitus without complications Qualifiers: Diabetes mellitus halfway insulin use: with parts 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 2= needs review? 3= comprehend keep point? 4= demonstrates understanding/ competent? NC= Not Covered Topics Learning Objective: Initial visit Initial or post srvc Initial or post srvc Initial or post srvc Initial or post srvc Initial or post srvc Post srvc Comments Pre Edu-assessment/plan Outcome or reassess Outcome or reassess Outcome or reassess Outcome or reassess Outcome or reassess Outcome or reassess Diabetes pathophysiology 1 3 Healthy eating 2 3 Being active 1 Taking medication 1 3 Monitoring glucose 1 3 Acute complication 2 Chronic complicated 2 Lifestyle and healthy coping 1 Diabetes distress in support 1 ?Diabetes pathophysiology: ?Defined diabetes med identify own type of diabetes; list 3 options for treating diabetes Healthy eating: ?Described effect of type, amount and ?timing of food on blood glucose; list 3 methods for planning meal Being active: ?State effect of exercise on blood glucose level Taking medication: ?State effect of diabetes medications on diabetes; name diabetes medications taking, action and side effects Monitoring glucose: ?Identify recommended blood glucose targets and personal target Acute complication: ?List symptoms and treatment of hyper and hypoglycemia, DKA, sick day guidelines and guidelines for severe weather or situations of crisis and diabetes supply manage Chronic complication: ?To find the relationship of blood glucose levels to long- term complications of diabetes in screening and preventative measures Lifestyle and healthy coping: ?Described lifestyle and healthy coping strategies to rule out diabetes self-management Diabetes to stress and support: ?Recognize Diabetes to stress and be able to identified support options Learning objectives: Learning objectives: The patient was provided with verbal and written education on the following topics as outlined below. Patient questions/concerns, patient's last A1c on 08/15/2023 7.1%, this is down from A1c of 9% in 534008. Patient recently had Lantus dose reduced from 30 units b.i.d. to 30 units daily, in anticipation of increasing Mounjaro dose from 5 mg to 7.5 mg. Due to GI issues patient has not increase Mounjaro dose. She has continued Lantus 30 units b.i.d., and has requested prescription reflect what she is taking so she does not run out of medication. Message sent to Dr. Biswas to increase prescription of Lantus to match what patient is taking. Patient reports multiple barriers, such as having to cook for her , being a picky eater for reasons that have made it more difficult change her eating habits. Patient is having postprandial hyperglycemia, we discussed at visit the options for trying to reduce glucose numbers after meals. Such as adding mealtime insulin, increasing physical activity after meals, decreasing carbohydrate portions at meals. Before adding new medication patient would like to try to reduce carbohydrate portion. The patient met all learning objectives and was able to verbalize understanding and provide teach back of education topics discussed . The patient was provided with the opportunity to ask questions and all questions were answered. Topics covered in today?s session included: Medications (If applicable) * Name of medication? * Dosing/administration instructions? * Mechanism of action? * Potential side effects? * Potential adverse reaction and appropriate treatment? * Review onset, peak, duration Assess for concerns re: insurance coverage, cost, barriers to compliance Insulin/Injectables (If applicable) * Storage/care of insulin?? * Injection sites? * Site rotation? * Onset, peak, duration * Drawing up insulin? * Injecting insulin/other injectables? * Sharps disposal Continuous blood glucose monitoring (if applicable) Hypoglycemia and Hyperglycemia * Signs and symptoms? * Causes?? * Treatment? * Preventing hypoglycemia? * When to seek medical attention * Blood glucose targets and how you feel when your blood glucose is in and out of your target ranges. * Monitoring and knowing your A1C. * What can make blood glucose go up and down and preventing high and low blood glucose. * Review of blood sugar targets in expected goal range and outside of expected goal range. * Problem solving and preventing hyper/hypoglycemia. * Sick day management of diabetes. * Using blood sugar results in decision making process in managing diabetes. ?Patient was receptive to information provided and participated in the discussion. Asked?appropriate questions and demonstrated good understanding of the topics discussed.? ? Educational Materials: The patient was provided with the following written educational materials: Target Goal handout Smart Goal Assessment:? Patient will use ADA diabetes food Adocia, for recipe ideas Pt met goal less than 25% New Smart Goal: Patient will reduce carbohydrate portion at mealtime to 30-45 g between now and next visit with consumer educator in 2 months Patient Response to instructions: Comprehension of Instructions: fair Readiness to make changes:? Contemplation How confident they feel about making changes:fair Portions of this note were created using voice recognition software, please excuse any words or phrases that may have been misinterpreted. Patient Instructions: Patient will follow-up with consumer educator in 2 months for review of postprandial hyperglycemia Coding Level of Care Code Est Pt Level 1 (35084) Diagnoses Controlled type 2 diabetes mellitus with microalbuminuria, with long-term current use of insulin E11.29; R80.9; Z79.4 Diabetes mellitus halfway insulin use: with halfway use Diabetes mellitus complication status: with kidney complications Diabetes mellitus complication detail: with microalbuminuria
== END 2023-09-13 11:45 | disposition home or self-care (01) ==
PROVIDERS: PCP Internal Medicine; Visit Provider Registered Nurse Diabetes Educator
DX: E11.29 Type 2 diabetes mellitus with other diabetic kidney complication (principal); R80.9 Proteinuria, unspecified; Z79.4 Long term (current) use of insulin

== ENCOUNTER → 2023-09-13 10:58 | Outpatient (BNVA) | payer BC, SELFPAY | PROVIDERS: PCP Internal Medicine; Visit Provider Registered Nurse Diabetes Educator | DX: E11.29 Type 2 diabetes mellitus with other diabetic kidney complication (principal); R80.9 Proteinuria, unspecified; Z79.4 Long term (current) use of insulin; Z71.89 Other specified counseling | CPT/HCPCS: 99211 ==

== ENCOUNTER 2023-10-22 12:03 | Outpatient (REF) | payer BC, SELFPAY ==
[2023-10-22 13:29] LABS: Appearance Urine Clear; Color Urine Yellow; Glucose Urine UA Negative (Negative); Leukocyte Esterase Urine Moderate (2+) (Negative); Nitrite Urine Negative (Negative); Specific Gravity - Urine 1.015 (1.005-1.025); UMIC TRIGGER UACC YES; Urine Blood Negative (Negative); Urine Ketones Negative (Negative); Urine Protein Negative (Neg-Trace)
[2023-10-22 13:33] LABS: Bacteria Urine None Seen (None Seen); Hyaline Casts Urine 0-2 /LPF (0-2); RBC Urine 0-2 /HPF (0-2); UACC Culture Trigger YES
[2023-10-22 13:37] LABS: Estimated Average Glucose 154 mg/dL
[2023-10-22 13:45] LABS: Alanine Aminotransferase 13 U/L (0-31); Albumin Level 3.8 g/dL (3.5-5.0); Alkaline Phosphatase 77 U/L (39-117); Anion Gap 13 (12-20); Aspartate Amino Transferase 13 U/L (5-31); Bilirubin Total 0.5 mg/dL (0.0-1.0); Blood Urea Nitrogen 16 mg/dL (9-16); Calcium 9.4 mg/dL (8.4-10.2); Carbon Dioxide 25 mmol/L (22-29); Chloride 106 mmol/L (96-108); Cholesterol 162 mg/dL (<200); Estimated Glomerular Filt Rate > 60; Glucose Fasting 170 mg/dL (60-99); HDL Cholesterol 41 mg/dL (>40); LDL Cholesterol Calculated 105 mg/dL (<100); Potassium 4.2 mmol/L (3.3-5.1); Sodium 140 mmol/L (135-145); Triglycerides 81 mg/dL (<150)
[2023-10-22 14:02] LABS: Creatinine Urine 52.23 mg/dL; Microalbum/Creatinine Ratio Ur 28.7 ug/mg cr (<30)
== END 2023-10-22 12:04 | disposition home or self-care (01) ==
LOC: HO.10HDL 12:03
PROVIDERS: Visit Provider Internal Medicine
DX: E78.00 Pure hypercholesterolemia, unspecified (principal); E11.9 Type 2 diabetes mellitus without complications; R30.0 Dysuria
CPT/HCPCS: 36415; 80053; 80061; 81001; 82043; 82570; 83036; 87086

== ENCOUNTER 2023-10-26 13:52 | Outpatient (AMB) | payer BC, SELFPAY ==
--- NOTE | 2023-10-26 13:55 | MHC.PC.OV ---
Vital Signs 10/26/23 13:56 Height 5 ft Weight 219 lb 8 oz BMI 42.9 BP 124/76 Blood Pressure Location Rt brachial Position Sitting Pulse 82 Pulse Source Pulse Oximeter Pulse Oximetry (%) 98 Oxygen Delivery Method Room Air Intake Visit Reasons: DM, hyperlipidemia Intake Note: Patient is here to follow up on DM, HLD. Drawing Machine Operator Required: No Sales Technician: Not Required per policy Accompanied by: Self / Same As Patient Allergies atorvastatin Adverse Reaction (Intermediate, Verified 10/26/23 14:22) myalgia, low back pain pravastatin Adverse Reaction (Intermediate, Verified 10/26/23 14:22) myalgia, low back pain IVP dye Allergy (Mild, Uncoded 10/26/23 14:22) Nausea Medication List - Last Reconciled 10/26/23 by Salvatore Gramajo MD blood sugar diagnostic As directed flash glucose sensor (FreeStyle Tara 2 Sensor kit) USED TO CON'T MONITOR BLOOD SUGAR insulin glargine (Lantus Solostar U-100 Insulin) 15 units subcut BID insulin lispro (Humalog KwikPen (U-100) Insulin) 10 units (0.1 mL) subcut TID metformin ER 1,000 mg PO QAM pantoprazole 40 mg PO BID pen needle, diabetic (BD Brie 2nd Gen Pen Needle) 4X a day tirzepatide (Mounjaro) 5 mg subcut QWEEK Tobacco use date assessed: 10/26/23 Fall risk assessment: No Falls in past year Last assessed Fall Risk: 10/26/23 Dental Screening Dental Screen Date: 09/07/23 HPI DM, hyperlipidemia HPI Details Patient comes in today for her follow up visit Relates that she had to stop taking her Pravastatin last year due to increased myalgias - states that her muscle aches and pains improved as soon as she stopped taking her Rx although she still has her usual aches and pains States that she feels okay otherwise She denies any headaches or dizziness Denies any chest pains, no SOB No nausea/vomiting, no abdominal pain No change in bowel habits noted She had her follow up labs done a few days ago - to discuss her results FORMERLY [facility] Medical History Alpha thalassemia trait Diabetic nephropathy associated with type 2 diabetes mellitus prison (current) use of insulin Morbid obesity with BMI of 40.0-44.9, adult Insomnia GERD without esophagitis Obstructive sleep apnea Thalassemia trait History of left breast cancer (~2000) Pure hypercholesterolemia Diabetes mellitus Dyslipidemia Diabetes type 2, controlled Surgical History Hx of colonoscopy (~03/19/15) S/P lumpectomy, left breast Hx of ventral hernia repair (~2003) S/P bilateral oophorectomy (~2002) S/P radical vaginal hysterectomy (~1989) Family History Paternal Aunt No problems noted. Maternal Uncle No problems noted. Mother Cardiovascular disease Liver cancer Breast cancer Father No problems noted. Maternal Aunt No problems noted. 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 Jimmy Richey, Angelica Calderon, Hernandez Gold and colleagues, with an educational joi from [employer]. Review of Systems Const Reports body aches (occasional but not as bad as when she was on statins), Denies chills, Denies fatigue, Denies fever(s) and Denies headache(s) ENT Denies dysphagia, Denies dizziness, Denies otalgia, Denies headache(s), Denies neck pain, Denies odynophagia and Denies sore throat Card Denies chest pain, Denies rapid heart rate, Denies irregular heart rhythm, Denies palpitations and Denies dyspnea Resp Denies chest congestion, Denies cough, Denies dyspnea and Denies wheezing GI Denies abdominal pain, Denies constipation, Denies dysphagia, Denies heartburn, Denies diarrhea, Denies nausea, Denies odynophagia and Denies vomiting Denies hematuria, Denies urinary frequency and Denies dysuria Musc Details: pain over varicosities, aching of lower extremities, swelling, cramping, heaviness and tiredness, itching; (+) recurrent bilateral arm pain Denies back pain, Reports arthralgias (on and off, involving multiple joints) and Denies neck pain Skin/Breast Denies rash Neuro Denies dizziness, Denies headache(s) and Denies paresthesias Psych Denies anxiety and Denies depression Endo Denies fatigue and Denies palpitations Aller/Immun Denies wheezing Physical exam (Primary Care) Vital Signs: Last Vital Signs Pulse 82 10/26/23 13:56 BP 124/76 10/26/23 13:56 Pulse Ox 98 10/26/23 13:56 Oxygen Delivery Method Room Air 10/26/23 13:56 BMI result Body Mass Index 42.9 Tobacco/Smoking Status: Tobacco use Status Tobacco use date assessed 10/26/23 10/26/23 14:00 Patient Tobacco Use Status Former Tobacco user 10/26/23 14:00 Tobacco use type Cigarette 10/26/23 14:00 e-Cigarette/Vaping Use Never Used 10/26/23 14:00 Thrive Assessment: Date of Thrive Assessment Date Thrive assessed 09/07/23 10/26/23 14:00 Const General: no acute distress and alert HENMT Ears: TM's normal bilaterally and EAC's normal Throat: Yes posterior oropharynx normal and Yes tonsils normal (no TP congestion) Neck Neck: Yes no lymphadenopathy and Yes supple Thyroid: Thyroid normal Resp Auscultation: clear to auscultation bilaterally, no rales and no wheezes Cardio Rate: regular rate Rhythm: regular rhythm Heart sounds: no murmurs GI Palpation (GI): Soft to palpation and nontender Auscultation: normal bowel sounds General: Yes no CVA tenderness Back/Spine/Pelvis Back: no CVA tenderness Skin Rashes: no rashes Extrem General: Yes no clubbing, cyanosis or edema Results Reviewed Results Reviewed: Laboratory Tests 10/22/23 12:10 Sodium 140 Potassium 4.2 Creatinine 0.80 Estimated GFR > 60 Fasting Glucose 170 H Hemoglobin A1c % 7.0 H Calcium 9.4 AST 13 ALT 13 Triglycerides 81 Cholesterol 162 LDL Cholesterol, Calc 105 H HDL Cholesterol 41 Ur Specific [place] 1.015 Urine Protein Negative Urine Glucose (UA) Negative Urine Blood Negative Urine Nitrite Negative Ur Leukocyte Esterase Moderate (2+) H Microalb/Creat Ratio 28.7 Assessment and Plan Assessment & Plan (1) Diabetes mellitus: Code(s): E11.9 - Type 2 diabetes mellitus without complications Qualifiers: Diabetes mellitus type: type 2 Diabetes mellitus 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 Biswas; Jardiance was also discontinued a few months ago due to frequent yeast infections Follow up with Endocrinology as scheduled (2) Pure hypercholesterolemia: Code(s): E78.00 - Pure hypercholesterolemia, unspecified Plan: Results of her labs done a few days ago reviewed and discussed with patient Reinforced low cholesterol diet She was started back on Pravastatin 10 mg QD last year but she stopped it after a while when she noticed increased pain over her lower back and muscles since she started taking Pravastatin We tried her instead on Rosuvastatin 5 mg but she ended up not tolerating the Rx as well and she now has tried Atorvastatin, Pravastatin and Rosuvastatin unsuccessfully Will recheck her labs and fasting lipid in 3 to 4 months for follow up and will then decide on further treatment or management plans depending on how her cholesterol levels will come out (3) Obstructive sleep apnea: Comment: The last sleep study was in 2008. Severe degree of sleep apnea. AHI was 72/hr and the oxygen esau was 82% Code(s): G47.33 - Obstructive sleep apnea (adult) (pediatric) Plan: She was previously using her CPAP device daily when sleeping at night but felt that it was not helping States that she has not had a sleep study done in over 10 years now (2008) and is wondering if her requirements have changed She was referred to Sleep Medicine for follow up and management of her sleep apnea - was seen last year and had a repeat sleep study ordered but patient still has not had it done yet Have advised that she should check back with Sleep Medicine if she is still interested in getting this worked up further (4) Bilateral leg pain: Code(s): M79.604 - Pain in right leg; M79.605 - Pain in left leg Plan: Was reportedly advised by vascular surgery recently that her symptoms do not appear to be vascular in origin EMG & NCV of both lower extremities done back in March 2023 revealed (+) moderately severe axonal sensory motor peripheral neuropathy and chronic left lower lumbar radiculopathy Advised that if her symptoms get worse, can consider starting her on Gabapentin (5) Varicose veins of bilateral lower extremities with pain: Code(s): I83.813 - Varicose veins of bilateral lower extremities with pain Plan: Follow up with vascular surgery as scheduled (6) GERD without esophagitis: Code(s): K21.9 - Gastro-esophageal reflux disease without esophagitis Plan: Dietary restrictions reinforced Continue Omeprazole 40 mg QD Follow-up with GI as scheduled (7) Microscopic hematuria: Code(s): R31.29 - Other microscopic hematuria Plan: Is currently asymptomatic but patient still has trace amount of blood in her urine at times Renal US done last year revealed no hydronephrosis or nephrolithiasis; (+) right renal parenchymal cortical scarring noted (8) Alpha thalassemia trait: Code(s): D56.3 - Thalassemia minor Plan: Advised again that her H/H is normal but her CBC always present with microcytosis and hypochromia with a slightly elevated RBC count Reassured that no intervention is needed for this and we will just continue to monitor her CBC regularly (9) Insomnia: Code(s): G47.00 - Insomnia, unspecified Qualifiers: Insomnia type: primary Qualified Code(s): F51.01 - Primary insomnia Plan: Sleep hygiene reinforced Used to take Zolpidem 10 mg Q HS PRN but has not done so lately (10) Morbid obesity with BMI of 40.0-44.9, adult: Code(s): E66.01 - Morbid (severe) obesity due to excess calories; Z68.41 - Body mass index [BMI] 40.0-44.9, adult Plan: Reinforced diet/exercise as tolerated/lose weight Plan Follow up in 4 months Orders: Orders Comprehensive [place]. Panel Fast 4 Months E78.00 - Pure hypercholesterolemia, unspecified, M79.10 - Myalgia, unspecified site Lipid Panel 4 Months E78.00 - Pure hypercholesterolemia, unspecified, M79.10 - Myalgia, unspecified site UA CC w/rflx Micro + Cult 4 Months M79.10 - Myalgia, unspecified site, R30.0 - Dysuria Vitamin D 25-OH Total 4 Months E55.9 - Vitamin D deficiency, unspecified, M79.10 - Myalgia, unspecified site Erythrocyte Sedimentation Rate 4 Months M79.10 - Myalgia, unspecified site, M79.7 - Fibromyalgia Hemoglobin A1c 4 Months E11.9 - Type 2 diabetes mellitus without complications Complete Blood Count Auto Diff 4 Months D64.9 - Anemia, unspecified, M79.10 - Myalgia, unspecified site TSH reflex Free T4 4 Months E78.00 - Pure hypercholesterolemia, unspecified, M79.10 - Myalgia, unspecified site Microalbumin, Random (w Creat) 4 Months E11.9 - Type 2 diabetes mellitus without complications, M79.10 - Myalgia, unspecified site C Reactive Protein 4 Months M79.10 - Myalgia, unspecified site CK, Total+Isoenzymes, Serum 4 Months M79.10 - Myalgia, unspecified site Coding Level of Care Code Est Pt Level 4 (86882) Complex EM visit Add On G2211 Diagnoses Type 2 diabetes mellitus without complication, without long-term current use of insulin E11.9 Diabetes mellitus type: type 2 Diabetes mellitus senior living insulin use: without watermelon harvesting supervisor use Diabetes mellitus complication status: without complication Pure hypercholesterolemia E78.00 Obstructive sleep apnea G47.33 Bilateral leg pain M79.604; M79.605 Varicose veins of bilateral lower extremities with pain I83.813 GERD without esophagitis K21.9 Microscopic hematuria R31.29 Alpha thalassemia trait D56.3 Primary insomnia F51.01 Insomnia type: primary Morbid obesity with BMI of 40.0-44.9, adult E66.01; Z68.41
[2023-10-26 13:56] VITALS: BP 124/76; PULSE 82; O2SAT 98; BMI 42.9
== END 2023-10-26 14:50 | disposition home or self-care (01) ==
PROVIDERS: PCP Internal Medicine; Visit Provider Internal Medicine
DX: E11.9 Type 2 diabetes mellitus without complications (principal); E66.01 Morbid (severe) obesity due to excess calories; Z68.41 Body mass index [BMI] 40.0-44.9, adult; E78.00 Pure hypercholesterolemia, unspecified; G47.33 Obstructive sleep apnea (adult) (pediatric); M79.604 Pain in right leg; M79.605 Pain in left leg; I83.813 Varicose veins of bilateral lower extremities with pain; K21.9 Gastro-esophageal reflux disease without esophagitis; R31.29 Other microscopic hematuria; D56.3 Thalassemia minor; F51.01 Primary insomnia
CPT/HCPCS: 99214

== ENCOUNTER 2023-11-21 16:34 | Outpatient (AMB) | payer BC, SELFPAY ==
--- NOTE | 2023-11-21 16:51 | A.OFFVIS_ITS ---
Intake Intake Visit Reasons: 60 min Epic Cupid Specialists Required: No Accompanied by: Self / Same As Patient Allergies atorvastatin Adverse Reaction (Intermediate, Verified 10/26/23 14:22) myalgia, low back pain pravastatin Adverse Reaction (Intermediate, Verified 10/26/23 14:22) myalgia, low back pain IVP dye Allergy (Mild, Uncoded 10/26/23 14:22) Nausea HPI Comprehensive Diabetes Asmnt Most Recent Diabetes Results: Hemoglobin A1c 6.5 % 12/06/18 Microalb/Creat Ratio 28.7 ug/mg cr (<30) 10/22/23 Cholesterol 162 mg/dL (<200) 10/22/23 HDL Cholesterol 41 mg/dL (>40) 10/22/23 Triglycerides 81 mg/dL (<150) 10/22/23 Creatinine 0.80 mg/dL (0.5-1.4) 10/22/23 Blood Urea Nitrogen 16 mg/dL (9-16) 10/22/23 Sodium 140 mmol/L (135-145) 10/22/23 Potassium 4.2 mmol/L (3.3-5.1) 10/22/23 Chloride 106 mmol/L (96-108) 10/22/23 Carbon Dioxide 25 mmol/L (22-29) 10/22/23 Calcium 9.4 mg/dL (8.4-10.2) 10/22/23 AST 13 U/L (5-31) 10/22/23 ALT 13 U/L (0-31) 10/22/23 Total Protein 7.0 g/dL (6.5-8.0) 10/22/23 Albumin 3.8 g/dL (3.5-5.0) 10/22/23 [facility] Medical History Alpha thalassemia trait Diabetic nephropathy associated with type 2 diabetes mellitus 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 Maternal Uncle No problems noted. Mother Cardiovascular disease Liver cancer Breast cancer Father No problems noted. Maternal Aunt No problems noted. 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 Cognitive needs: No Hearing needs: No Vision needs: Yes (glasses) Assessment & Plan Assessment & Plan (1) Diabetes type 2, controlled: Code(s): E11.9 - Type 2 diabetes mellitus without complications Qualifiers: Diabetes mellitus complication detail: with microalbuminuria Diabetes mellitus complication status: with kidney complications Diabetes mellitus [facility] insulin use: with data center engineer use Qualified Code(s): E11.29 - Type 2 diabetes mellitus with other diabetic kidney complication; R80.9 - Proteinuria, unspecified; Z79.4 - water 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 2= needs review? 3= comprehend keep point? 4= demonstrates understanding/ competent? NC= Not Covered Topics Learning Objective: Initial visit Initial or post srvc Initial or post srvc Initial or post srvc Initial or post srvc Initial or post srvc Post srvc Comments Pre Edu-assessment/plan Outcome or reassess Outcome or reassess Outcome or reassess Outcome or reassess Outcome or reassess Outcome or reassess Diabetes pathophysiology 1 3 Healthy eating 2 3 Being active 1 Taking medication 1 3 Monitoring glucose 1 3 Acute complication 2 3 Chronic complicated 2 3 Lifestyle and healthy coping 1 3 Diabetes distress in support 1 3 ?Diabetes pathophysiology: ?Defined diabetes med identify own type of diabetes; list 3 options for treating diabetes Healthy eating: ?Described effect of type, amount and ?timing of food on blood glucose; list 3 methods for planning meal Being active: ?State effect of exercise on blood glucose level Taking medication: ?State effect of diabetes medications on diabetes; name diabetes medications taking, action and side effects Monitoring glucose: ?Identify recommended blood glucose targets and personal target Acute complication: ?List symptoms and treatment of hyper and hypoglycemia, DKA, sick day guidelines and guidelines for severe weather or situations of crisis and diabetes supply manage Chronic complication: ?To find the relationship of blood glucose levels to long- term complications of diabetes in screening and preventative measures Lifestyle and healthy coping: ?Described lifestyle and healthy coping strategies to rule out diabetes self-management Diabetes to stress and support: ?Recognize Diabetes to stress and be able to identified support options Learning objectives: The patient was provided with verbal and written education on the following topics as outlined below. The patient met all learning objectives and was able to verbalize understanding and provide teach back of education topics discussed . The patient was provided with the opportunity to ask questions and all questions were answered. Patient Assessment Assess patient education level/literacy/barriers Patient's A1c 7% on 10/22/2023 down from 9% 03/2023 Patient uses Cobra Stylet Tara 3 to check glucose Patient's average glucose for the past 2 weeks 171 mg/dL Patient above target 37% Patient at target 62% Patient below target 1% Patient attributes higher glucose levels for the past 2 weeks be due to recovering from COVID. Overall patient feels generally positive regarding diabetes plan Patient will follow-up with telehealth nurse educator as needed Exercise Medical clearance Effect of exercise on blood sugar Start slowly and gradually increase pace/duration over time Goal amount of exercise Checking blood glucose/have a source of carbs with you Medications (If applicable) * Name of medication * Dosing/administration instructions * Mechanism of action * Potential side effects * Potential adverse reaction and appropriate treatment * Review onset, peak, duration Assess for concerns re: insurance coverage, cost, barriers to compliance Insulin/Injectables (If applicable) * Storage/care of insulin * Injection sites * Site rotation * Onset, peak, duration * Drawing up insulin * Injecting insulin/other injectables * Sharps disposal Continuous blood glucose monitoring (if applicable) Hypoglycemia and Hyperglycemia * Signs and symptoms * Causes * Treatment * Preventing hypoglycemia * When to seek medical attention Medical alert bracelet Lifestyle * Work * Travel * Stress management * Problem solving Know your goals * A1C * Blood sugar targets * Blood pressure * Cholesterol/LDL Urine microalbumin Smart Goal Assessment: Patient will reduce carbohydrate portion at mealtime to 30-45 g between now and next visit with telehealth nurse educator in 2 months Pt met goal 50% New Goal:? Patient will contact telehealth nurse educator questions and concerns Educational Materials: The patient was provided with the following written educational materials: ADCES 7 Healthy Behaviors Reducing Risks handout Patient Response to instructions: Comprehension of Instructions: Readiness to make changes: a How confident they feel about making changes: Letter of completion of diabetes Education program will be sent to referring provider Portions of this note were created using voice recognition software, please excuse any words or phrases that may have been misinterpreted. Patient Instructions: Include regular daily activity. ADA recommends 30 minutes of exercise 5 days a week. Weight loss talk to PCP or Barrel Roller before starting new plan. Test blood sugar as directed; Fasting and 2hpp largest meal. Watch trends in results. Utilize results and to assess how food, physical activity and medications affect blood sugar results. Bring glucometer or CGM to next visit. Be knowledgeable about diabetes medication, its action, side effects, efficacy, toxicity, prescribed dosage, appropriate timing and frequency of administration, effect of missed and delayed doses and instructions for storage, travel and safety. Problem solving techniques to monitor hypo/hyperglycemia episodes and treatments. Reduce risk reduction behaviors, smoking cessation, regular eye, foot and dental examinations. Coding Level of Care Code Est Pt Level 1 (39519) Diagnoses Controlled type 2 diabetes mellitus with microalbuminuria, with long-term current use of insulin E11.29; R80.9; Z79.4 Diabetes mellitus complication detail: with microalbuminuria Diabetes mellitus complication status: with kidney complications Diabetes mellitus data center engineer insulin use: with data center engineer use
== END 2023-11-21 17:12 | disposition home or self-care (01) ==
PROVIDERS: PCP Internal Medicine; Visit Provider Registered Nurse Diabetes Educator
DX: E11.29 Type 2 diabetes mellitus with other diabetic kidney complication (principal); R80.9 Proteinuria, unspecified; Z79.4 Long term (current) use of insulin

== ENCOUNTER → 2023-11-21 16:34 | Outpatient (BNVA) | payer BC, SELFPAY | PROVIDERS: PCP Internal Medicine; Visit Provider Registered Nurse Diabetes Educator | DX: E11.29 Type 2 diabetes mellitus with other diabetic kidney complication (principal); R80.9 Proteinuria, unspecified; Z79.4 Long term (current) use of insulin | CPT/HCPCS: 99211 ==

== ENCOUNTER 2024-01-07 13:55 | Outpatient (AMB) | payer BC, SELFPAY ==
--- NOTE | 2024-01-07 13:59 | MHC.OFFVIS ---
Vital Signs 01/07/24 14:02 Height 5 ft Weight 222 lb 4.608 oz BMI 43.4 BP 110/72 Blood Pressure Location Rt brachial Position Sitting Pulse 76 Pulse Source Pulse Oximeter Intake Visit Reasons: DM/ Conf Intake Note: Patient present today to follow up on Type 2 Diabetes Mellitus. Patient receives DME supplies through: Pharmacy Last Diabetic Eye exam: 1 month ago Last Podiatry Visit: Doesn't see a [employer] Teacher Random Glucose: 123 mg/dl HgA1C: 7.0% 10/22/2023 Evaporator Operator Required: No Accompanied by: Self / Same As Patient Allergies atorvastatin Adverse Reaction (Intermediate, Verified 01/07/24 14:03) myalgia, low back pain pravastatin Adverse Reaction (Intermediate, Verified 01/07/24 14:03) myalgia, low back pain IVP dye Allergy (Mild, Uncoded 01/07/24 14:03) Nausea Medication List - Last Reconciled 01/07/24 by Jimmy Biswas MD blood sugar diagnostic As directed flash glucose sensor ([employer] Tara 2 Sensor kit) USED TO CON'T MONITOR BLOOD SUGAR insulin glargine (Lantus Solostar U-100 Insulin) 28 units subcut BID insulin lispro (Humalog KwikPen (U-100) Insulin) 14 units (0.14 mL) subcut TID metformin ER 1,000 mg PO QAM pantoprazole 40 mg PO BID pen needle, diabetic (BD Brie 2nd Gen Pen Needle) 4X a day tirzepatide (Mounjaro) 5 mg subcut QWEEK HPI Comments Details: 63 yo female today for fup visit , She is feeling well. Tara Download from 12/25/2023 to 01/07/2024 shows she is using the sensor 96% of the time. Average glucose 147 with G mi of 6.8% and variability 31.2%. 77% in target range with 22% hyperglycemia 1% hypoglycemia She has DM type 2 diagnosed 2012. She is Currently on Metformin 1000 mg extended release , Lantus 14 units BID , Humalog 14 units before meals , Jardiance 25 mg QD-stopped because of yeast infections . Mounjaro 5 mg Qwkly No hypoglycemia Complications: no retinopathy, nephropathy, neuropathy, CVA, CAD, PVD. Last ophthalmology evaluation: last mo - no retinopathy . . She deneis numbness, tingling, blurred vision. Her weight is stable. Laboratory Tests 08/30/18 11/08/18 12/06/18 13:14 12:00 11:17 Hgb Hct Sodium Potassium Creatinine Estimated GFR Fasting Glucose Estimat Average Glucose Hemoglobin A1c 6.5 Hgb A1c Fingerstick 7.8 Hemoglobin A1c % Calcium AST ALT Albumin Triglycerides Cholesterol LDL Cholesterol Direct 87 LDL Cholesterol, Calc HDL Cholesterol TSH Urine Creatinine Urine Microalbumin Microalb/Creat Ratio 06/14/20 06/14/20 06/14/20 11:11 11:11 11:11 Hgb Hct Sodium 142 Potassium 4.3 Creatinine 0.73 Estimated GFR > 60 Fasting Glucose 113 H Estimat Average Glucose 160 Hemoglobin A1c Hgb A1c Fingerstick Hemoglobin A1c % 7.2 Calcium 8.9 AST 14 ALT 15 Albumin 4.0 Triglycerides 74 Cholesterol 137 LDL Cholesterol Direct LDL Cholesterol, Calc 81 HDL Cholesterol 42 TSH 0.61 Urine Creatinine 54.13 Urine Microalbumin 9.0 Microalb/Creat Ratio 16.6 06/14/20 11:11 Hgb 13.9 Hct 45.6 Sodium Potassium Creatinine Estimated GFR Fasting Glucose Estimat Average Glucose Hemoglobin A1c Hgb A1c Fingerstick Hemoglobin A1c % Calcium AST ALT Albumin Triglycerides Cholesterol LDL Cholesterol Direct LDL Cholesterol, Calc HDL Cholesterol TSH Urine Creatinine Urine Microalbumin Microalb/Creat Ratio She does complain of some abdominal discomfort several weeks after taking the Mounjaro. However, it is tolerable. She recently had a CT scan done by a dough maker with did not show any pancreatic pathology will gallbladder pathology [facility] Medical History Alpha thalassemia trait Diabetic nephropathy associated with type 2 diabetes mellitus correction (current) use of insulin Morbid obesity with BMI of 40.0-44.9, adult Insomnia GERD without esophagitis Obstructive sleep apnea Thalassemia trait History of left breast cancer (~2000) Pure hypercholesterolemia Diabetes mellitus Dyslipidemia Diabetes type 2, controlled Surgical History Hx of colonoscopy (~03/19/15) S/P lumpectomy, left breast Hx of ventral hernia repair (~2003) S/P bilateral oophorectomy (~2002) S/P radical vaginal hysterectomy (~1989) Family History Paternal Aunt No problems noted. Maternal Uncle No problems noted. Mother Cardiovascular disease Liver cancer Breast cancer Father No problems noted. Maternal Aunt No problems noted. 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 Absence of acromegalic features. Neck exam reveals nl size thyroid about 15 gms. No thyroid nodules palpable. No carotid bruits present. Lungs CTA. Heart S1 S2, Reg R/R. No M/R/ G. Skin exam reveals absence of vitiligo or acanthosis nigricans. Abdominal exam reveals Soft NT/ND with NA BS. No organomegaly present. Neck Other: . Extrem Other: Visual exam of foot performed. No ulcerations or open lesions. No onchomycosis, no callouses.Pulses 2 + distally Sensation intact to monofilament exam. Vibratory sensation sensed is intact with 128 Hz tuning fork Results Reviewed Results Reviewed: Laboratory Last Values Glucose (Clinic) 123 mg/dL (60-115) H 01/07/24 14:09 Assessment & Plan Assessment & Plan (1) Diabetes type 2, controlled: Code(s): E11.9 - Type 2 diabetes mellitus without complications Category: Medical Qualifiers: Diabetes mellitus complication detail: with microalbuminuria Diabetes mellitus complication status: with kidney complications Diabetes mellitus nursing home insulin use: with nursing home use Qualified Code(s): E11.29 - Type 2 diabetes mellitus with other diabetic kidney complication; R80.9 - Proteinuria, unspecified; Z79.4 - watermelon inspector (current) use of insulin Plan: This is a 62-year-old white female with history of type 2 diabetes being treated with metformin, Lantus and Mounjaro with excellent glycemic control and no known microvascular or macrovascular complications Plan is to continue the current management. We did talk about the risk of pancreatitis patient is willing to continue on the medication for glycemic benefit and weight loss benefit Medications: New blood-glucose sensor (FreeStyle Tara 3 Plus Sensor device) As directed change every 14 days 2 ea 5RF tirzepatide (Mounjaro) 5 mg (0.5 mL) subcut QWEEK 2 mL 5RF Discontinued flash glucose sensor (FreeStyle Tara 2 Sensor kit) Discontinued Reason: Doctor's Order USED TO CON'T MONITOR BLOOD SUGAR 2 kits 11RF E11.9 - Type 2 diabetes mellitus without complications Coding Level of Care Code Est Pt Level 4 (36404) Complex EM visit Add On G2211 Diagnoses Controlled type 2 diabetes mellitus with microalbuminuria, with long-term current use of insulin E11.29; R80.9; Z79.4 Diabetes mellitus complication detail: with microalbuminuria Diabetes mellitus complication status: with kidney complications Diabetes mellitus watermelon inspector insulin use: with nursing home use
[2024-01-07 14:02] VITALS: BP 110/72; PULSE 76; BMI 43.4
[2024-01-07 14:13] LABS: Glucose, Whole Blood 123 mg/dL (60-115)
== END 2024-01-07 14:43 | disposition home or self-care (01) ==
PROVIDERS: PCP Internal Medicine; Visit Provider Internal Medicine Endocrinology, Diabetes & Metabolism
DX: E11.29 Type 2 diabetes mellitus with other diabetic kidney complication (principal); R80.9 Proteinuria, unspecified; Z79.4 Long term (current) use of insulin
CPT/HCPCS: 99214

== ENCOUNTER → 2024-01-07 13:55 | Outpatient (BNVA) | payer BC, SELFPAY | PROVIDERS: PCP Internal Medicine; Visit Provider Internal Medicine Endocrinology, Diabetes & Metabolism | DX: E11.29 Type 2 diabetes mellitus with other diabetic kidney complication (principal); R80.9 Proteinuria, unspecified; Z79.4 Long term (current) use of insulin | CPT/HCPCS: 82947 ==

== ENCOUNTER 2024-02-22 12:11 | Outpatient (REF) | payer BC, SELFPAY ==
[2024-02-22 12:27] LABS: MANUAL DIFF FLAG NO
[2024-02-22 12:44] LABS: Basophils Absolute Auto 0.1 X10*3/uL (0.0-0.2); Basophils Percent Auto 0.7 % (0-2); Eosinophils Absolute Auto 0.2 X10*3/uL (0.0-0.4); Eosinophils Percent Auto 2.2 % (0-4); Hematocrit 43.5 % (37.0-47.0); Hemoglobin 13.4 g/dl (12.0-16.0); Imm Gran Abs Auto 0.07 X10*3/uL (0.00-0.03); Imm Gran Pct Auto 0.9 % (0.0-0.4); Lymphocytes Absolute Auto 2.4 X10*3/uL (1.2-4.9); Lymphocytes Percent Auto 31.9 % (20-40); Mean Corpuscular HGB Conc 30.8 g/dl (31.0-35.0); Mean Corpuscular Hemoglobin 19.9 pg (27.0-33.0); Mean Corpuscular Volume 64.4 fL (80.0-98.0); Mean Platelet Volume 9.5 fL (9.4-12.3); Monocytes Absolute Auto 0.6 X10*3/uL (0.1-1.2); Monocytes Percent Auto 7.2 % (2-11); Neutrophils Absolute Auto 4.4 x10*3/uL (2.0-8.3); Neutrophils Percent Auto 57.1 % (45-73); Platelet Count 275 X10*3/uL (160-400); Red Blood Count 6.75 X10*6/uL (4.20-5.50); Red Cell Distribution Width 18.2 % (11.0-16.0); White Blood Count 7.7 X10*3/uL (4.8-10.8)
[2024-02-22 12:49] LABS: Estimated Average Glucose 166 mg/dL; Hemoglobin A1C 202.5477 umol/L; Hemoglobin A1c % 7.4 % (<6.0); Total Hemoglobin (HGBA1C) 3552.0266 umol/L
[2024-02-22 13:23] LABS: Erythrocyte Sedimentation Rate 16 MM/HR (0-20)
[2024-02-22 13:26] LABS: Alanine Aminotransferase 16 U/L (0-31); Albumin Level 3.9 g/dL (3.5-5.0); Alkaline Phosphatase 84 U/L (39-117); Anion Gap 11 (12-20); Aspartate Amino Transferase 19 U/L (5-31); Bilirubin Total 0.4 mg/dL (0.0-1.0); Blood Urea Nitrogen 18 mg/dL (9-16); C Reactive Protein 1.16 mg/dL (< or = 0.50); Calcium 9.1 mg/dL (8.4-10.2); Carbon Dioxide 29 mmol/L (22-29); Chloride 102 mmol/L (96-108); Cholesterol 168 mg/dL (<200); Estimated Glomerular Filt Rate > 60; Glucose Fasting 148 mg/dL (60-99); HDL Cholesterol 43 mg/dL (>40); LDL Cholesterol Calculated 110 mg/dL (<100); Potassium 4.5 mmol/L (3.3-5.1); Sodium 137 mmol/L (135-145); Total Protein 7.3 g/dL (6.5-8.0); Triglycerides 75 mg/dL (<150)
[2024-02-22 13:42] LABS: TSH reflex Free T4 1.27 uIU/mL (0.32-4.0); Vitamin D 25-OH Total 29.8 ng/mL (>30)
[2024-02-22 14:09] LABS: Appearance Urine Clear; Color Urine Yellow; Glucose Urine UA Negative (Negative); Leukocyte Esterase Urine Small (1+) (Negative); Nitrite Urine Negative (Negative); PH 6.5 (5.0-9.0); Specific Gravity - Urine 1.015 (1.005-1.025); UMIC TRIGGER UACC YES; Urine Blood Negative (Negative); Urine Ketones Negative (Negative); Urine Protein Negative (Neg-Trace)
[2024-02-22 14:26] LABS: Bacteria Urine None Seen (None Seen); Hyaline Casts Urine 0-2 /LPF (0-2); RBC Urine 0-2 /HPF (0-2); UACC Culture Trigger YES; WBC Urine 0-5 /HPF (0-5)
[2024-02-22 14:45] LABS: Creatinine Urine 72.25 mg/dL; Microalbum/Creatinine Ratio Ur 8.3 ug/mg cr (<30)
[2024-02-28 22:24] LABS: CK-BB None Detected (None Detected); CK-MB 0 % (<5); CK-MM 100 % (95-100); Creatine Kinase,Total,Serum 32 U/L (29-143)
== END 2024-02-22 12:12 | disposition home or self-care (01) ==
LOC: HO.LAB 12:11
PROVIDERS: PCP Internal Medicine; Visit Provider Internal Medicine
DX: E78.00 Pure hypercholesterolemia, unspecified (principal); E55.9 Vitamin D deficiency, unspecified; D64.9 Anemia, unspecified; M79.7 Fibromyalgia; E11.9 Type 2 diabetes mellitus without complications; R30.0 Dysuria
CPT/HCPCS: 36415; 80053; 80061; 81001; 81003; 82043; 82306; 82552; 82570; 83036; 84443; 85025; 85652; 86140; 87086

== ENCOUNTER 2024-09-02 11:00 | Outpatient (AMB) | payer MEDICARE, SELFPAY ==
--- NOTE | 2024-09-02 11:06 | MHC.OFFVIS ---
Vital Signs 09/02/24 11:09 Height 5 ft Weight 230 lb 9.656 oz BMI 45.0 BP 116/68 Blood Pressure Location Rt radial Position Sitting Pulse 74 Pulse Source Palpation Intake Visit Reasons: T2DM Intake Note: Patient present today to follow up on Type 2 Diabetes Mellitus. Patient receives DME supplies through: Pharmacy Last Diabetic Eye exam: 12/14/2023 Last Podiatry Visit: Doesn't see a Museum Educator Random Glucose: 197 mg/dl HgA1C: 7.7% 09/02/2024 Explosion Welder Required: No Accompanied by: Self / Same As Patient Allergies atorvastatin Adverse Reaction (Intermediate, Verified 09/02/24 11:10) myalgia, low back pain pravastatin Adverse Reaction (Intermediate, Verified 09/02/24 11:10) myalgia, low back pain IVP dye Allergy (Mild, Uncoded 09/02/24 11:10) Nausea Medication List - Last Reconciled 09/02/24 by Jimmy Biswas MD blood sugar diagnostic As directed blood-glucose sensor (FreeStyle Tara 3 Plus Sensor device) As directed change every 14 days ezetimibe 10 mg PO DAILY insulin glargine (Lantus Solostar U-100 Insulin) 30 units (0.3 mL) subcut DAILY insulin lispro (Humalog KwikPen (U-100) Insulin) 14 units (0.14 mL) subcut TID metformin ER 1,000 mg (2 x 500 mg) PO DAILY 30 days pantoprazole 40 mg PO BID pen needle, diabetic (BD Brei 2nd Gen Pen Needle) 4X a day tirzepatide (Mounjaro) 7.5 mg (0.5 mL) subcut QWEEK HPI Comments Details: 64 yo female today for fup visit , She is feeling well. Tara Download from 08/20/24 to 09/02/24 to shows she is using the sensor 97% of the time. Average glucose 169 with G mi of 7.4% and variability 20.5 %. 67% in target range with 33% hyperglycemia 1% hypoglycemia Pattern shows persistent hyperglycemia throughout the day with very little spike post-prandial She has DM type 2 diagnosed 2012. She is Currently on Metformin 1000 mg extended release , Lantus 30 units daily , Humalog 14 units before meals not taking , Jardiance 25 mg QD-stopped because of yeast infections . Mounjaro 10 mg Qwkly . Alfrezza 14 mg before meals No hypoglycemia Complications: no retinopathy, nephropathy, neuropathy, CVA, CAD, PVD. Last ophthalmology evaluation: last Dec - no retinopathy . . She deneis numbness, tingling, blurred vision. Her weight is stable. Laboratory Tests 08/30/18 11/08/18 12/06/18 13:14 12:00 11:17 Hgb Hct Sodium Potassium Creatinine Estimated GFR Fasting Glucose Estimat Average Glucose Hemoglobin A1c 6.5 Hgb A1c Fingerstick 7.8 Hemoglobin A1c % Calcium AST ALT Albumin Triglycerides Cholesterol LDL Cholesterol Direct 87 LDL Cholesterol, Calc HDL Cholesterol TSH Urine Creatinine Urine Microalbumin Microalb/Creat Ratio 06/14/20 06/14/20 06/14/20 11:11 11:11 11:11 Hgb Hct Sodium 142 Potassium 4.3 Creatinine 0.73 Estimated GFR > 60 Fasting Glucose 113 H Estimat Average Glucose 160 Hemoglobin A1c Hgb A1c Fingerstick Hemoglobin A1c % 7.2 Calcium 8.9 AST 14 ALT 15 Albumin 4.0 Triglycerides 74 Cholesterol 137 LDL Cholesterol Direct LDL Cholesterol, Calc 81 HDL Cholesterol 42 TSH 0.61 Urine Creatinine 54.13 Urine Microalbumin 9.0 Microalb/Creat Ratio 16.6 06/14/20 11:11 Hgb 13.9 Hct 45.6 Sodium Potassium Creatinine Estimated GFR Fasting Glucose Estimat Average Glucose Hemoglobin A1c Hgb A1c Fingerstick Hemoglobin A1c % Calcium AST ALT Albumin Triglycerides Cholesterol LDL Cholesterol Direct LDL Cholesterol, Calc HDL Cholesterol TSH Urine Creatinine Urine Microalbumin Microalb/Creat Ratio states that she is frustrated with several injections a day and was switch to inhaled insulin Alfrezza by her lithoplate maker in [place]. States she wants to go back to Humalog. She has actually gained weight. She is also concerned about a lesion in her right upper neck. 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 Maternal Uncle No problems noted. Mother Cardiovascular disease Liver cancer Breast cancer Father No problems noted. Maternal Aunt No problems noted. 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 Absence of acromegalic features. Neck exam reveals nl size thyroid about 15 gms. No thyroid nodules palpable. No carotid bruits present. Not able to appreciate any masses or adenopathy in the neck Lungs CTA. Heart S1 S2, Reg R/R. No M/R/ G. Skin exam reveals absence of vitiligo or acanthosis nigricans. Abdominal exam reveals Soft NT/ND with NA BS. No organomegaly present. Neck Other: . Extrem Other: Visual exam of foot performed. No ulcerations or open lesions. No onchomycosis, no callouses.Pulses 2 + distally Sensation intact to monofilament exam. Vibratory sensation sensed is intact with 128 Hz tuning fork Results AMB Hemoglobin A1c AMB Hemoglobin A1c 7.7 % Last Edit by LIANA Jansen on 09/02/24 11:37 Results Reviewed Results Reviewed: Laboratory Last Values Glucose (Clinic) 197 mg/dL (60-115) H 09/02/24 11:17 Assessment & Plan Assessment & Plan (1) Diabetes type 2, controlled: Code(s): E11.9 - Type 2 diabetes mellitus without complications Category: Medical Qualifiers: Diabetes mellitus terminal gauger supervisor insulin use: with terminal gauger supervisor use Diabetes mellitus complication status: with kidney complications Diabetes mellitus complication detail: with microalbuminuria Qualified Code(s): E11.29 - Type 2 diabetes mellitus with other diabetic kidney complication; R80.9 - Proteinuria, unspecified; Z79.4 - penitentiary (current) use of insulin Plan: This is a 62-year-old white female with history of type 2 diabetes being treated with metformin, basal-insulin and Mounjaro with fair deteriorated glycemic control and no known microvascular or macrovascular complications Plan is to increase the Lantus to 36 units and titrate by 3 units to get morning blood sugars around 120. We switch the Alfrezza back to Humalog 14 units before meals. She wants to hold the Mounjaro to see if this has any effect on blood sugars. I told her she can do this but it blood sugars rise she is going to reinitiate the Mounjaro. I told her to keep an appointment with ENT regarding the palpable neck area (2) Dyslipidemia: Code(s): E78.5 - Hyperlipidemia, unspecified Category: Medical Plan: LDL not at goal on ezetimibe. Patient has started statins in the past but was not tolerable . We will recheck lipid profile and if necessary could restart a statin and low-dose Orders: Orders AMB Hemoglobin A1c Today E11.21 - Type 2 diabetes mellitus with diabetic nephropathy Lipid Panel Today E11.29 - Type 2 diabetes mellitus with other diabetic kidney complication, E78.5 - Hyperlipidemia, unspecified, R80.9 - Proteinuria, unspecified, Z79.4 - ferry terminal supervisor (current) use of insulin Medications: Refilled insulin lispro (Humalog KwikPen (U-100) Insulin) 14 units (0.14 mL) subcut TID 15 mL 5RF blood-glucose sensor (FreeStyle Tara 3 Plus Sensor device) As directed change every 14 days 2 ea 5RF E11.29 - Type 2 diabetes mellitus with other diabetic kidney complication, R80.9 - Proteinuria, unspecified, Z79.4 - ferry terminal supervisor (current) use of insulin Coding Level of Care Code Est Pt Level 4 (21293) Complex EM visit Add On G2211 Diagnoses Controlled type 2 diabetes mellitus with microalbuminuria, with long-term current use of insulin E11.29; R80.9; Z79.4 Diabetes mellitus terminal gauger supervisor insulin use: with terminal gauger supervisor use Diabetes mellitus complication status: with kidney complications Diabetes mellitus complication detail: with microalbuminuria Dyslipidemia E78.5
[2024-09-02 11:09] VITALS: BP 116/68; PULSE 74; BMI 45.0
[2024-09-02 11:22] LABS: Glucose, Whole Blood 197 mg/dL (60-115)
== END 2024-09-02 11:50 | disposition home or self-care (01) ==
LOC: HO.ENCR 11:01
PROVIDERS: PCP Internal Medicine; Visit Provider Internal Medicine Endocrinology, Diabetes & Metabolism
DX: E11.29 Type 2 diabetes mellitus with other diabetic kidney complication (principal); R80.9 Proteinuria, unspecified; Z79.4 Long term (current) use of insulin; E78.5 Hyperlipidemia, unspecified; E11.21 Type 2 diabetes mellitus with diabetic nephropathy
CPT/HCPCS: 99214; G2211

== ENCOUNTER → 2024-09-02 11:00 | Outpatient (BNVA) | payer MEDICARE, SELFPAY | PROVIDERS: PCP Internal Medicine; Visit Provider Internal Medicine Endocrinology, Diabetes & Metabolism | DX: E11.29 Type 2 diabetes mellitus with other diabetic kidney complication (principal); E78.5 Hyperlipidemia, unspecified; R80.9 Proteinuria, unspecified; Z79.4 Long term (current) use of insulin; Z79.899 Other long term (current) drug therapy | CPT/HCPCS: 82947; 83036; 99212 ==

== ENCOUNTER 2024-10-21 12:23 | Outpatient (REF) | payer MEDICARE, SELFPAY ==
--- OUTSIDE RECORDS SUMMARY | 2024-10-21 13:34 | XMS_ITS | Patient Health Record ---
Author Organization [facility] Address [address] [place] [address] Care Team Providers Care Drill Presser Name Role Phone Steve Tenorio MD Primary Care Provider Nicholas Frausto Unavailable [phone] Reason For Referral No Information Medications Medication SIG (Take, Route, Fr equency, Duration) Notes Start Date End Date Status Culturelle 20 MG as directed Orally Active Katt Allergy 60 MG 1 tablet Orally Tw ice a day; Duration: 30 day(s) Active Omeprazole 50 MG 1 capsule Orally Onc e a day; Duration: 30 day(s) Active baby asprin 80 MG as directed Active Social History Alcohol Screen Question Answer Notes Did you have a drink containing alcohol in the p ast year? Yes Points 0 Interpretation Negative Tobacco use other than smoking: Question Answer Notes Are you an other tobacco user? No Problems Problem Type SNOMED Code ICD Code Onset Dates Problem Status W/U Status Risk Notes Problem Onychomycosis (422194700) Onychomycosis (110.1) Active confirmed Problem Pain in Limb (729.5) Active confirmed Plan Of Treatment No Information Insurance Providers Payer Name Payer Address Payer Phone Subscriber Number Group Number Insured Name Patient Relationship to Insured Coverage Start Date Coverage End Date [facility] [address] [place] [address] [id number] Vangie Good Self - patient is the insured Medical (General) History Medical History History ICD Code cancer diverticulosis reflux chicken pox Surgical History Surgery Date(Month/Year) lumpectomy 1999 hernia 2004 oopherectomy 2002 hysterectomy 1992
--- OUTSIDE RECORDS SUMMARY | 2024-10-21 13:34 | XMS_ITS | Data Portability ---
Author Organization [place] - [facility], Allergy Address [address] [address] Care Team Providers Care Analytical Clerk Name Role Phone AMBER REYES Primary Care Provider Assessment Encounter Date Assessment Date Assessment LastModified by Organization Details LastModified Time 09/23/2024 09/23/2024 Patient previously seen in [place] for soft tissue nodularity right neck level 3. She had extensive workup including multiple fiberoptic examinations and ultrasound of the neck which was negative. There may be a small less than 1 cm subcutaneous nodule. This may be fat or a small lymph node. I have suggested observation and if enlarging a follow-up ultrasound. Patient will contact me through the portal. She has difficulty tolerating her CPAP and frequent awakening. I have recommended a sleep medicine evaluation carmen Not available 09/23/2024 12:03:05 Plan of Treatment Reminders Order Date Submit Date Provider Last Modified By Organization Details Last Modified Time Details Appointments None recorded. Lab None recorded. Referral sleep medicine referral 2024 025 [email or web address], [address] [place], [address], 11:13:50 Procedures None recorded. Surgeries None recorded. Imaging None recorded. Medication Orders None recorded. Patient TargetsNo targets recorded. Patient InstructionsNo instructions recorded. Reason for Referral Sleep Medicine Referral for Obstructive sleep apnea syndrome Referring Physician: Jareth Restrepo, Otolaryngology, Encounter Date: 09/23/2024 Problems Name Problem SNOMED Code Status Onset Date Resolution Date Notes Provider Name and Address Organization Details Recorded Time Bilateral tinnitus 8694315963289 Active 2024 JARETH JAMISON MD 100 [facility] 100, [place], [address], [facility] - [facility] 5 10:54:10 Obstructive sleep apnea syndrome 39312152 Active 2024 JARETH JAMISON MD 100 [facility] 100, [place], [address], [facility] - [facility] 5 10:54:24 Finding of neck region 855513009 Active 2024 JARETH JAMISON MD 100 [facility] 100, [place], [address], [facility] 5 10:54:30 Problem Notes None recorded. Medical Equipment None Reported. Medications Name Sig Start Date Stop Date Status Note LastModified by Organization Details LastModified Time prednisone 10 mg tablet PLEASE SEE ATTACHED FOR DETAILED DIRECTIONS active Not Available Not Available N ot Available hydroxyzine HCl 50 mg tablet PLEASE SEE ATTACHED FOR DETAILED DIRECTIONS active Not Available Not Available N ot Available pantoprazole 40 mg tablet,delay ed release TAKE 1 TABLET BY MOUTH TWICE A DAY active Not Available Not Available No t Available ipratropium bromide 42 mcg (0.06 %) nasal spray SPRAY 2 SPRAYS IN EACH NOSTRIL THREE TIMES A DAY NEEDED FOR PND OR RHINITIS active Not Available Not Available No t Available metformin ER 500 mg tablet,exten ded release 24 hr TAKE 2 TABLETS ORALLY DAILY FOR 30 DAYS active Not Available Not Available No t Available neomycin-eze ymyxin-hydro nazia 3.5 mg-10,000 unit/mL-1 % ear drops,susp INSTILL 4 DROP IN RIGHT EAR THREE TIMES A DAY active Not Available Not Available No t Available ezetimibe 10 mg tablet TAKE 1 TABLET BY MOUTH EVERY DAY FOR 90 DAYS active Not Available Not Available No t Available Lantus Solostar U-100 Insulin 100 unit/mL (3 mL) subcutaneous pen INJECT 30 UNITS (0.3 ML) SUBCUTANEOU SLY DAILY active Not Available Not Available No t Available Humalog KwikPen (U-100) Insulin 100 unit/mL subcutaneous INJECT 14 UNIT (0.14 ML) SUBCUTANEOU SLY 3 TIMES A DAY active Not Available Not Available No t Available BD Brie 2nd Gen Pen Needle 32 gauge x 5/32 USE FOUR TIMES A DAY active Not Available Not Available Not Available FreeStyle Tara 2 Sensor kit USED TO CONT MONITOR BLOOD SUGAR active Not Available Not Available Not Available Mounjaro 7.5 mg/0.5 mL subcutaneous pen injector INJECT 7.5 MG (0.5 ML) SUBCUTANEOU SLY EVERY WEEK active Not Available Not Available No t Available Mounjaro 5 mg/0.5 mL subcutaneous pen injector INJECT 0.5 ML (5 MG) SUBCUTANEOU SLY WEEKLY active Not Available Not Available N ot Available Mounjaro 10 mg/0.5 mL subcutaneous pen injector INJECT 10 MG SUBCUTANEOU S ONCE A WEEK 90 DAYS active Not Available Not Available No t Available FreeStyle Tara 3 Plus Sensor device DIRECTED CHANGE EVERY 14 DAYS active Not Available Not Available No t Available Vitals Date Recorded Body height Body mass index (BMI) Body weight Provider Name and Address Organization Details Last Updated DateTime 09/23/2024 152.4 cm 43 kg/m2 27978.32 g James Tapia [place] - [facility] 09/23/2024 10:36:30 Social History None recorded. Functional Status None recorded. Mental Status None recorded. Family History Nothing Reported. Medical History No medical history recorded. Gynecological HistoryNo gynecological history recorded. Obstetrics History GPAL:G 0 P 0 0 0 0 Past Encounters Encounter ID Performer Location Encounter Start Date Encounter Closed Date Diagnosis/Indication Diagnosis SNOMED-CT Code Diagnosis ICD10 Code Diagnosis Note [id number] JARETH BACA MD [facility] [address] [address] 09/23/2024 10:20:51 09/23/2024 10:58:43 Bilateral tinnitus 0464637577 102 H93.13 Likely exacerbate d by poor sleep and TMJ Obstructiv e sleep apnea syndrome 46497995 G47.33 Using only for a few hours. Refer to sleep medicine for management Finding of neck region 879638962 R22.1 No discrete mass palpable.. maybe less than 1 cm level 3 on right Health Concerns Section Related Observation LastModified by Organization Detai ls LastModified Time None Recorded Concern Status LastModified by Organization Details LastModified Time None Recorded Advance Directives Directive None Recorded Payers Insurance Date Sequence Insurance Name Policy Number Policy Buckley Covered Member ID Buckley Member ID Guarantor Name 09/23/2024 2 [place] [id number] Vangie Waters Florentino [id number] Vangie Waters Florentino 09/23/2024 1 [place] [facility] [employer] [employer] Vangie Waters Florentino [id number] Vangie Waters Florentino Notes Date Note Type Note Provider Name and Address Organization Details Recorded Time 09/23/2024 text/html Right neck mass since April. Only discomfort with pressing. hard to find. Non smoker 2-3 wine per month. Work up in [place] showed no mass on ultrasound and normal FOL. She has tinnitus in both ears and SELENE on CPAP. Anxious about hx of cancer She notes hard to find area of concern JARETH RESTREPO MD [address] [place] [address], [phone], [facility] - [facility] 09/23/2024 12:03:22 OBGyn Episode No OBEpisode recorded.
[2024-10-21 14:01] LABS: Cholesterol 138 mg/dL (<200); HDL Cholesterol 41 mg/dL (>40); Triglycerides 76 mg/dL (<150)
== END 2024-10-21 12:24 | disposition home or self-care (01) ==
LOC: HO.LAB 12:23
PROVIDERS: PCP Internal Medicine; Visit Provider Internal Medicine Endocrinology, Diabetes & Metabolism
DX: E11.29 Type 2 diabetes mellitus with other diabetic kidney complication (principal); E78.5 Hyperlipidemia, unspecified; R80.9 Proteinuria, unspecified; Z79.4 Long term (current) use of insulin
CPT/HCPCS: 36415; 80061

== ENCOUNTER 2024-11-04 14:03 | Outpatient (AMB) | payer MEDICARE, SELFPAY ==
--- NOTE | 2024-11-04 14:05 | MHC.PC.OV ---
Vital Signs 11/04/24 14:06 Height 5 ft Weight 227 lb 6 oz BMI 44.4 BP 122/80 Blood Pressure Location Rt brachial Position Sitting Pulse 78 Pulse Source Pulse Oximeter Pulse Oximetry (%) 95 Oxygen Delivery Method Room Air Intake Visit Reasons: Follow-up Life Consultant Required: No Accompanied by: Self / Same As Patient Allergies atorvastatin Adverse Reaction (Intermediate, Verified 11/10/24 04:35) myalgia, low back pain pravastatin Adverse Reaction (Intermediate, Verified 11/10/24 04:35) myalgia, low back pain IVP dye Allergy (Mild, Uncoded 11/10/24 04:35) Nausea Medication List - Last Reconciled 11/04/24 by Salvatore Gramajo MD blood sugar diagnostic As directed blood-glucose sensor (FreeStyle Tara 3 Plus Sensor device) As directed change every 14 days ezetimibe 10 mg PO DAILY insulin glargine (Lantus Solostar U-100 Insulin) 30 units (0.3 mL) subcut DAILY insulin lispro (Humalog KwikPen (U-100) Insulin) 14 units (0.14 mL) subcut TID metformin ER 1,000 mg (2 x 500 mg) PO DAILY 30 days pantoprazole 40 mg PO BID pen needle, diabetic USE FOUR TIMES A DAY tirzepatide (Mounjaro) 7.5 mg (0.5 mL) subcut QWEEK Tobacco use date assessed: 11/04/24 Fall risk assessment: No Falls in past year Last assessed Fall Risk: 11/04/24 Dental Screening Dental Screen Date: 11/04/24 Did you have a dental visit in the last 12 months?: Yes Did you have a dental problem in the last 6 months where you did not have access to dental care?: No Was dental information given to patient?: Patient has dentist HPI Follow-up HPI Details Patient comes in today for her follow up visit - was last seen over a year ago on 10/26/2023 States that she feels okay She denies any headaches or dizziness Denies any chest pains, no shortness of breath No nausea/vomiting, no abdominal pain No change in bowel habits noted States that she is scheduled for a sleep study in a couple of days - the study was ordered by ENT (Dr. Stewart) Patient states that she stopped taking her Ezetimibe q while back due to side effects (increased itching) She had her follow-up labs done a couple of weeks ago - to discuss her results [facility] Medical History Alpha thalassemia trait Diabetic nephropathy associated with type 2 diabetes mellitus residential (current) use of insulin Morbid obesity with BMI of 40.0-44.9, adult Insomnia GERD without esophagitis Obstructive sleep apnea Thalassemia trait History of left breast cancer (~2000) Pure hypercholesterolemia Diabetes mellitus Dyslipidemia Diabetes type 2, controlled Surgical History Hx of colonoscopy (~03/19/15) S/P lumpectomy, left breast Hx of ventral hernia repair (~2003) S/P bilateral oophorectomy (~2002) S/P radical vaginal hysterectomy (~1989) Family History Paternal Aunt No problems noted. Maternal Uncle No problems noted. Mother Cardiovascular disease Liver cancer Breast cancer Father No problems noted. Maternal Aunt No problems noted. 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 1. Little interest or pleasure in doing things: not at all 2. Feeling down, depressed, or hopeless: not at all 3. Trouble falling or staying asleep, or sleeping too much: not at all 4. Feeling tired or having little energy: not at all 5. Poor appetite or overeating: not at all 6. Feeling bad about yourself - or that you are a failure or have let yourself or your family down: not at all 7. Trouble concentrating on things, such as reading the newspaper or watching television: not at all 8. Moving or speaking so slowly that other people could have noticed. Or the opposite - being so fidgety or restless that you have been moving around a lot more than usual: not at all 9. Thoughts that you would be better off or of hurting yourself in some way: not at all Total score: 0 Depression Screening Interpretation: Negative Depression Screening Done: Yes 35600 - PHQ-9 Billing: Yes Source: Developed by Drs. Jimmy Richey, Angelica Cadleron, Hernandez Gold and colleagues, with an educational joi from [employer]. Thrive Questionnaire Date Thrive assessed: 11/04/24 I am a: Patient What is your living situation today?: I have a steady place to live Within the past 12 months, did the food you bought not last and you didn't have the money to get more?: Never true Within the past 12 months, did you worry whether your food would run out before you got money to buy more?: Never true Do you have trouble paying for medicines?: No Do you have trouble getting transportation to medical appointments?: No Do you have trouble paying your heating and electricity bill?: No Do you have trouble taking care of your child, family member or friend?: No Do you have trouble with day-to-day activities such as bathing, preparing meals, shopping, managing finances, etc.?: No Are you currently unemployed and looking for a job?: No Are you interested in more education?: No Please select the resources that you would like help with: None Currently or been in a relationship where the following occur: No concerns reported THRIVE Score: 0 AUDIT C Alcohol Use Questionnaire (AUDIT-C) 1. How often do you have a drink containing alcohol?: Never 3. How often do you have six or more drinks on one occasion?: Never Total Score: 0 Score Reviewed/Action Taken: Yes ANUPAMA-7 AMB Questionnaire ANUPAMA-7 Date ANUPAMA - 7 assessed: 11/04/24 Feeling nervous, anxious, or on edge: 0 = Not at all Not being able to stop or control worryin = Not at all Worrying too much about different things: 0 = Not at all Trouble relaxin = Not at all Being so restless that it is hard to sit still: 0 = Not at all Becoming easily annoyed or irritable: 0 = Not at all Feeling afraid as if something awful might happen: 0 = Not at all Total ANUPAMA-7 score (0-4 normal; 5-9 mild; 10-14 moderate; 15-21 severe): 0 Source: Developed by Drs. Jimmy Richey, Angelica Calderon, Hernandez Gold and colleagues, with an educational joi from [employer]. Review of Systems Const Reports body aches (occasional but not as bad as when she was on statins), Denies chills, Denies fatigue, Denies fever(s) and Denies headache(s) ENT Denies dysphagia, Denies dizziness, Denies otalgia, Denies headache(s), Denies neck pain, Denies odynophagia and Denies sore throat Card Denies chest pain, Denies rapid heart rate, Denies irregular heart rhythm, Denies palpitations and Denies dyspnea Resp Denies chest congestion, Denies cough, Denies dyspnea and Denies wheezing GI Denies abdominal pain, Denies constipation, Denies dysphagia, Denies heartburn, Denies diarrhea, Denies nausea, Denies odynophagia and Denies vomiting Denies hematuria, Denies urinary frequency and Denies dysuria Musc Details: pain over varicosities, aching of lower extremities, swelling, cramping, heaviness and tiredness, itching; (+) recurrent bilateral arm pain Denies back pain, Reports arthralgias (on and off, involving multiple joints) and Denies neck pain Skin/Breast Denies rash Neuro Denies dizziness, Denies headache(s) and Denies paresthesias Psych Denies anxiety and Denies depression Endo Denies fatigue and Denies palpitations Aller/Immun Denies wheezing Physical exam (Primary Care) Vital Signs: Last Vital Signs Pulse 78 11/04/24 14:06 BP 122/80 11/04/24 14:06 Pulse Ox 95 11/04/24 14:06 Oxygen Delivery Method Room Air 11/04/24 14:06 BMI result Body Mass Index 44.4 Tobacco/Smoking Status: Tobacco use Status Tobacco use date assessed 11/04/24 11/04/24 14:12 Patient Tobacco Use Status Former Tobacco user 11/04/24 14:12 Tobacco use type Cigarette 11/04/24 14:12 e-Cigarette/Vaping Use Never Used 11/04/24 14:12 PHQ-9: PHQ-9 Score PHQ-9: Total score 0 11/04/24 14:50 Depression Screening Interpretation: Negative Thrive Assessment: Date of Thrive Assessment Date Thrive assessed 11/04/24 11/04/24 14:12 Currently or been in a relationship where the following occur: No concerns reported Const General: no acute distress and alert HENMT Ears: TM's normal bilaterally and EAC's normal Throat: Yes posterior oropharynx normal and Yes tonsils normal (no TP congestion) Neck Neck: Yes no lymphadenopathy and Yes supple Thyroid: Thyroid normal Resp Auscultation: clear to auscultation bilaterally, no rales and no wheezes Cardio Rate: regular rate Rhythm: regular rhythm Heart sounds: no murmurs GI Palpation (GI): Soft to palpation and nontender Auscultation: normal bowel sounds General: Yes no CVA tenderness Back/Spine/Pelvis Back: no CVA tenderness Skin Rashes: no rashes Extrem General: Yes no clubbing, cyanosis or edema Results Reviewed Results Reviewed: Laboratory Tests 10/21/24 12:34 Triglycerides 76 Cholesterol 138 LDL Cholesterol, Calc 82 HDL Cholesterol 41 Coding Level of Care Code Est Pt Level 4 (89674) Diagnoses Type 2 diabetes mellitus without complication, without long-term current use of insulin E11.9 Diabetes mellitus type: type 2 Diabetes mellitus 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 use: without 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 use Diabetes mellitus complication status: without complication Pure hypercholesterolemia E78.00 Obstructive sleep apnea G47.33 GERD without esophagitis K21.9 Primary insomnia F51.01 Insomnia type: primary Morbid obesity with BMI of 40.0-44.9, adult E66.01; Z68.41 Additional Codes PHQ-9 - 90131 - PHQ-9 Billing: Yes ([id number]) Assessment & Plan Assessment & Plan (1) Diabetes mellitus: Code(s): E11.9 - Type 2 diabetes mellitus without complications Category: Medical Qualifiers: Diabetes mellitus type: type 2 Diabetes mellitus 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 use: without 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 use Diabetes mellitus complication status: without complication Qualified Code(s): E11.9 - Type 2 diabetes mellitus without complications Plan: Her HgbA1c was at 7.4% when it was last checked in February 2024 - goal is < 7.0% Reinforced diabetic diet Continue Jardiance 25 mg QD, Metformin ER 500 mg BID and Soliqua 100-33 units-mcg/ml 18 units BID Follow up with endocrinology as scheduled (2) Pure hypercholesterolemia: Code(s): E78.00 - Pure hypercholesterolemia, unspecified Category: Medical Plan: Results of her labs done a couple of weeks ago reviewed and discussed with patient - her labs only included a fasting lipid profile As she has not had any follow-up labs done in a while, we will send her to get these done ZAIDA Reinforced low cholesterol diet Continue Atorvastatin 10 mg QD Will recheck her labs and fasting lipids in 4 months for follow up (3) Obstructive sleep apnea: Comment: The last sleep study was in 2008. Severe degree of sleep apnea. AHI was 72/hr and the oxygen esau was 82% Code(s): G47.33 - Obstructive sleep apnea (adult) (pediatric) Category: Medical Plan: Patient is presently scheduled for a repeat sleep study in a few days Follow-up with sleep medicine as scheduled (4) GERD without esophagitis: Code(s): K21.9 - Gastro-esophageal reflux disease without esophagitis Category: Medical Plan: Dietary restrictions reinforced Continue Omeprazole 20 mg QD and Famotidine 20 mg Q HS PRN (5) Insomnia: Code(s): G47.00 - Insomnia, unspecified Category: Medical Qualifiers: Insomnia type: primary Qualified Code(s): F51.01 - Primary insomnia Plan: Sleep hygiene reinforced Continue Zolpidem 10 mg Q HS PRN (6) Morbid obesity with BMI of 40.0-44.9, adult: Code(s): E66.01 - Morbid (severe) obesity due to excess calories; Z68.41 - Body mass index [BMI] 40.0-44.9, adult Category: Medical Plan: Reinforced diet/exercise as tolerated/lose weight Plan Follow up in 4 months Orders: Orders Comprehensive Met. Panel 11/04/24 E78.00 - Pure hypercholesterolemia, unspecified Hemoglobin A1c 11/04/24 E11.9 - Type 2 diabetes mellitus without complications, E78.00 - Pure hypercholesterolemia, unspecified TSH reflex Free T4 11/04/24 E78.00 - Pure hypercholesterolemia, unspecified UA CC w/rflx Micro + Cult 11/04/24 E78.00 - Pure hypercholesterolemia, unspecified, R30.0 - Dysuria Vitamin B12 and Folate 11/04/24 E53.8 - Deficiency of other specified B group vitamins, E78.00 - Pure hypercholesterolemia, unspecified Hemoglobin A1c 4 Months E11.9 - Type 2 diabetes mellitus without complications Complete Blood Count Auto Diff 11/04/24 D64.9 - Anemia, unspecified, E78.00 - Pure hypercholesterolemia, unspecified Microalbumin, Random (w Creat) 11/04/24 E11.9 - Type 2 diabetes mellitus without complications, E78.00 - Pure hypercholesterolemia, unspecified Vitamin D 25-OH Total 11/04/24 E55.9 - Vitamin D deficiency, unspecified, E78.00 - Pure hypercholesterolemia, unspecified Comprehensive Hanna. Panel Fast 4 Months E78.00 - Pure hypercholesterolemia, unspecified Lipid Panel 4 Months E78.00 - Pure hypercholesterolemia, unspecified Complete Blood Count Auto Diff 4 Months D64.9 - Anemia, unspecified Microalbumin, Random (w Creat) 4 Months E11.9 - Type 2 diabetes mellitus without complications
[2024-11-04 14:06] VITALS: BP 122/80; PULSE 78; O2SAT 95; BMI 44.4
--- OUTSIDE RECORDS SUMMARY | 2024-11-04 14:47 | XMS_ITS | Patient Health Record ---
Author Organization [facility] Address [address] [place] [address] Care Team Providers Care Salesperson Women'S Hats Name Role Phone Steve Tenorio MD Primary Care Provider Nicholas Frausto Unavailable [phone] Reason For Referral No Information Medications Medication [...] Status W/U Status Risk Notes Problem Onychomycosis (473268125) Onychomycosis (110.1) Active confirmed Problem Pain in Limb (729.5) Active confirmed Plan Of Treatment No Information Insurance Providers Payer Name Payer Address Payer Phone Subscriber Number Group Number Insured Name Patient Relationship to Insured Coverage Start Date Coverage End Date [facility] [address] [place] [address] [phone] [id number] Vangie Good Self - patient is the insured Medical (General) History Medical History History ICD Code cancer diverticulosis reflux chicken pox Surgical History Surgery Date(Month/Year) lumpectomy 1999 hernia 2004 oopherectomy 2002 hysterectomy 1992
--- OUTSIDE RECORDS SUMMARY | 2024-11-04 14:47 | XMS_ITS | Data Portability ---
Author Organization [place] - [facility], Allergy Address [address] [address] Care Team Providers Care Bowl Turner Name Role Phone AMBER REYES Primary Care Provider [phone] Assessment Encounter Date Assessment Date Assessment LastModified by Organization Details LastModified Time 09/23/2024 09/23/2024 Patient previously seen in [place] for soft tissue nodularity right neck level [...] 2024 025 [email or web address] [facility], [address] [place], [address], 08:23:46 Procedures None recorded. Surgeries None recorded. Imaging None recorded. Medication Orders None recorded. Patient TargetsNo targets recorded. Patient InstructionsNo instructions recorded. Reason for Referral Sleep Medicine Referral for Obstructive sleep apnea syndrome Referring Physician: Jareth Stewart, Otolaryngology, Encounter Date: 09/23/2024 Problems Name Problem SNOMED Code Status Onset Date Resolution Date Notes Provider Name and Address Organization Details Recorded Time Bilateral tinnitus 4063605254143 Active 2024 JARETH JAMISON MD 100 [facility] 100, [facility] [place], [address], [facility] - [facility] 5 10:54:10 Obstructive sleep apnea syndrome 79048834 Active 2024 JARETH JAMISON MD 100 [facility] 100, [facility] [place], [address], [facility] - [facility] 5 10:54:24 Finding of neck region 047833585 Active 2024 JARETH JAMISON MD 100 [facility] 100, [facility] [place], [address], [facility] 5 10:54:30 Problem Notes None recorded. Medical [...] Updated DateTime 09/23/2024 152.4 cm 43 kg/m2 51521.[address] - [facility] 09/23/2024 10:36:30 Social History None recorded. Functional Status None recorded. Mental Status None recorded. Family History Nothing Reported. Medical History No medical history recorded. Gynecological HistoryNo gynecological history recorded. Obstetrics History GPAL:G 0 P 0 0 0 0 Past Encounters Encounter ID Performer Location Encounter Start Date Encounter Closed Date Diagnosis/Indication Diagnosis SNOMED-CT Code Diagnosis ICD10 Code Diagnosis Note [id number] JARETH BACA MD [facility] [address] [address] 09/23/2024 10:20:51 09/23/2024 10:58:43 Bilateral tinnitus 4149914008 102 H93.13 Likely exacerbate d by poor sleep and TMJ Obstructiv e sleep apnea syndrome 57548584 G47.33 Using only for a few hours. Refer to sleep medicine for management Finding of neck region 165840960 R22.1 No discrete mass palpable.. maybe less than 1 cm level 3 on right Health Concerns Section Related Observation LastModified by Organization Detai ls LastModified Time None Recorded Concern Status LastModified by Organization Details LastModified Time None Recorded Advance Directives Directive None Recorded Payers Insurance Date Sequence Insurance Name Policy Number Policy Buckley Covered Member ID Buckley Member ID Guarantor Name 09/23/2024 2 [place] [id number] Vangie Good [id number] Vangie Good 09/23/2024 1 [place] [employer] Vangie Good [id number] Vangie Good OBGyn Episode No OBEpisode recorded.
== END 2024-11-04 15:00 | disposition home or self-care (01) ==
LOC: HO.HMCH 14:04
PROVIDERS: PCP Internal Medicine; Visit Provider Internal Medicine
DX: E11.9 Type 2 diabetes mellitus without complications (principal); E66.01 Morbid (severe) obesity due to excess calories; Z68.41 Body mass index [BMI] 40.0-44.9, adult; E78.00 Pure hypercholesterolemia, unspecified; G47.33 Obstructive sleep apnea (adult) (pediatric); K21.9 Gastro-esophageal reflux disease without esophagitis; F51.01 Primary insomnia

== ENCOUNTER → 2024-11-04 14:03 | Outpatient (BNVA) | payer MEDICARE, SELFPAY | PROVIDERS: PCP Internal Medicine; Visit Provider Internal Medicine | DX: E11.9 Type 2 diabetes mellitus without complications (principal); E78.00 Pure hypercholesterolemia, unspecified; G47.33 Obstructive sleep apnea (adult) (pediatric); F51.01 Primary insomnia; E66.01 Morbid (severe) obesity due to excess calories; Z68.41 Body mass index [BMI] 40.0-44.9, adult; Z71.3 Dietary counseling and surveillance | CPT/HCPCS: 96127; 99212 ==

== ENCOUNTER 2024-11-05 10:23 | Outpatient (AMB) | payer MEDICARE, SELFPAY ==
[2024-11-05 10:32] VITALS: BP 124/76; PULSE 70; O2SAT 100; BMI 44.8
--- NOTE | 2024-11-05 10:32 | A.OFFVIS_ITS ---
Vital Signs 11/05/24 10:32 Height 5 ft Weight 229 lb 4.492 oz BMI 44.8 BP 124/76 Blood Pressure Location Rt brachial Position Sitting Pulse 70 Pulse Source Pulse Oximeter Pulse Oximetry (%) 100 Oxygen Delivery Method Room Air Intake Visit Reasons: f/u Type 2 DM /hyperlipidemia Intake Note: Patient present today to follow up on Type 2 Diabetes Mellitus and hyperlipidemia. Last Diabetic Eye exam: 12/2023 Last Podiatry Visit: Does not see a Steam Roller Operator Random Glucose: 191 mg/dL Most Recent HgA1C: 7.7% 09/02/2024 Wireless Team Member Required: No Accompanied by: Self / Same As Patient Allergies atorvastatin Adverse Reaction (Intermediate, Verified 11/05/24 10:38) myalgia, low back pain pravastatin Adverse Reaction (Intermediate, Verified 11/05/24 10:38) myalgia, low back pain IVP dye Allergy (Mild, Uncoded 11/05/24 10:38) Nausea HPI Comments Details: 64 yo female today for fup visit , She is feeling well. Tara Download from 10/23/24 to 11/05/24 to shows she is using the sensor 93% of the time. Average glucose 178 with G mi of 7.6% and variability 27.5 %. 56% in target range with 43% hyperglycemia 1% hypoglycemia Pattern shows persistent hyperglycemia post-dinner with decreases in blood sugar overnight She has DM type 2 diagnosed 2012. She is Currently on Metformin 1000 mg extended release , Lantus 36 units daily , Humalog 14 units before meals , Jardiance 25 mg QD-stopped because of yeast infections . Mounjaro 7.5 mg Qwkly stopped No hypoglycemia Complications: no retinopathy, nephropathy, neuropathy, CVA, CAD, PVD. Last ophthalmology evaluation: last appt 12/2024 - no retinopathy . . She deneis numbness, tingling, blurred vision. Her weight is stable. Laboratory Tests 08/30/18 11/08/18 12/06/18 13:14 12:00 11:17 Hgb Hct Sodium Potassium Creatinine Estimated GFR Fasting Glucose Estimat Average Glucose Hemoglobin A1c 6.5 Hgb A1c Fingerstick 7.8 Hemoglobin A1c % Calcium AST ALT Albumin Triglycerides Cholesterol LDL Cholesterol Direct 87 LDL Cholesterol, Calc HDL Cholesterol TSH Urine Creatinine Urine Microalbumin Microalb/Creat Ratio 06/14/20 06/14/20 06/14/20 11:11 11:11 11:11 Hgb Hct Sodium 142 Potassium 4.3 Creatinine 0.73 Estimated GFR > 60 Fasting Glucose 113 H Estimat Average Glucose 160 Hemoglobin A1c Hgb A1c Fingerstick Hemoglobin A1c % 7.2 Calcium 8.9 AST 14 ALT 15 Albumin 4.0 Triglycerides 74 Cholesterol 137 LDL Cholesterol Direct LDL Cholesterol, Calc 81 HDL Cholesterol 42 TSH 0.61 Urine Creatinine 54.13 Urine Microalbumin 9.0 Microalb/Creat Ratio 16.6 06/14/20 11:11 Hgb 13.9 Hct 45.6 Sodium Potassium Creatinine Estimated GFR Fasting Glucose Estimat Average Glucose Hemoglobin A1c Hgb A1c Fingerstick Hemoglobin A1c % Calcium AST ALT Albumin Triglycerides Cholesterol LDL Cholesterol Direct LDL Cholesterol, Calc HDL Cholesterol TSH Urine Creatinine Urine Microalbumin Microalb/Creat Ratio c/o pruritis and stooped Ezetimide but continued. 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 Maternal Uncle No problems noted. Mother Cardiovascular disease Liver cancer Breast cancer Father No problems noted. Maternal Aunt No problems noted. 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 Absence of acromegalic features. Neck exam reveals nl size thyroid about 15 gms. No thyroid nodules palpable. No carotid bruits present. Not able to appreciate any masses or adenopathy in the neck Lungs CTA. Heart S1 S2, Reg R/R. No M/R/ G. Skin exam reveals absence of vitiligo or acanthosis nigricans. Abdominal exam reveals Soft NT/ND with NA BS. No organomegaly present. Neck Other: . Extrem Other: Visual exam of foot performed. No ulcerations or open lesions. No onchomycosis, no callouses.Pulses 2 + distally Sensation intact to monofilament exam. Vibratory sensation sensed is intact with 128 Hz tuning fork Results Reviewed Results Reviewed: Laboratory Last Values Glucose (Clinic) 191 mg/dL (60-115) H 11/05/24 10:38 Assessment & Plan Assessment & Plan (1) Diabetes type 2, controlled: Code(s): E11.9 - Type 2 diabetes mellitus without complications Category: Medical Plan: This is a 62-year-old white female with history of type 2 diabetes being treated with metformin, basal-insulin and Mounjaro with fair glycemic control and no known microvascular or macrovascular complications Plan is to decrease the Lantus to 30 units and increase the Humalog before supper to 20 units.Will restart Jardiance at 10 mg with possible increase to 25 mg in future. Recheck BMP in 10 days . Could consider initiation of Ozempic in future (2) Dyslipidemia: Code(s): E78.5 - Hyperlipidemia, unspecified Category: Medical Plan: Lipid profile at goal on Orders: Orders Basic Metabolic Panel 10 Days E11.29 - Type 2 diabetes mellitus with other diabetic kidney complication, R80.9 - Proteinuria, unspecified, Z79.4 - USP (current) use of insulin Medications: Changed From insulin lispro (Humalog KwikPen (U-100) Insulin) 14 units (0.14 mL) subcut TID 15 mL 5RF To insulin lispro (Humalog KwikPen (U-100) Insulin) subcutaneously 3 times a day; Take 14 units pre breakfast and lunch and 20 units pre supper 15 mL 5RF Coding Level of Care Code Est Pt Level 4 (80050) Diagnoses Diabetes type 2, controlled E11.9 Dyslipidemia E78.5
[2024-11-05 10:42] LABS: Glucose, Whole Blood 191 mg/dL (60-115)
--- OUTSIDE RECORDS SUMMARY | 2024-11-05 11:14 | XMS_ITS | Patient Health Record ---
Author Organization [facility] Address [address] [place] [address] Care Team Providers Care Account Services Manager Name Role Phone Steve Tenorio MD Primary Care Provider Nicholas Frausto Unavailable [phone] Reason For Referral No Information Medications Medication [...] Status W/U Status Risk Notes Problem Onychomycosis (342016617) Onychomycosis (110.1) Active confirmed Problem Pain in Limb (729.5) Active confirmed Plan Of Treatment No Information Insurance Providers Payer Name Payer Address Payer Phone Subscriber Number Group Number Insured Name Patient Relationship to Insured Coverage Start Date Coverage End Date [facility] [address] [place] [address] [id number] Vangie Good Self - patient is the insured Medical (General) History Medical History History ICD Code cancer diverticulosis reflux chicken pox Surgical History Surgery Date(Month/Year) lumpectomy 1999 hernia 2004 oopherectomy 2002 hysterectomy 1992
== END 2024-11-05 11:17 | disposition home or self-care (01) ==
LOC: HO.ENCR 10:24
PROVIDERS: PCP Internal Medicine; Visit Provider Internal Medicine Endocrinology, Diabetes & Metabolism
DX: E11.9 Type 2 diabetes mellitus without complications (principal); E78.5 Hyperlipidemia, unspecified
CPT/HCPCS: 99214

== ENCOUNTER → 2024-11-05 10:23 | Outpatient (BNVA) | payer MEDICARE, SELFPAY | PROVIDERS: PCP Internal Medicine; Visit Provider Internal Medicine Endocrinology, Diabetes & Metabolism | DX: E11.9 Type 2 diabetes mellitus without complications (principal); Z79.4 Long term (current) use of insulin; E78.5 Hyperlipidemia, unspecified | CPT/HCPCS: 82947; 99212 ==

== ENCOUNTER 2024-11-19 12:18 | Outpatient (REF) | payer MEDICARE, SELFPAY ==
--- OUTSIDE RECORDS SUMMARY | 2024-11-19 12:59 | XMS_ITS | Patient Health Record ---
Author Organization [facility] Address [address] [place] [address] Care Team Providers Care Mobile Home Installer Name Role Phone Steve Tenorio MD Primary Care Provider Nicholas Frausto Unavailable [phone] Reason For Referral No Information Medications Medication [...] Status W/U Status Risk Notes Problem Onychomycosis (391771546) Onychomycosis (110.1) Active confirmed Problem Pain in Limb (729.5) Active confirmed Plan Of Treatment No Information Insurance Providers Payer Name Payer Address Payer Phone Subscriber Number Group Number Insured Name Patient Relationship to Insured Coverage Start Date Coverage End Date [facility] [address] [place] [address] [phone] [id number] Vangie Good Self - patient is the insured Medical (General) History Medical History History ICD Code cancer diverticulosis reflux chicken pox Surgical History Surgery Date(Month/Year) lumpectomy 1999 hernia 2004 oopherectomy 2002 hysterectomy 1992
[2024-11-19 14:37] LABS: Anion Gap 15 (12-20); Blood Urea Nitrogen 21 mg/dL (9-16); Calcium 9.1 mg/dL (8.4-10.2); Carbon Dioxide 23 mmol/L (22-29); Chloride 108 mmol/L (96-108); Estimated Glomerular Filt Rate > 60; Potassium 4.2 mmol/L (3.3-5.1); Sodium 142 mmol/L (135-145)
[2024-11-19 15:06] LABS: Folate 13.5 ng/mL (> or = 4.0); Vitamin B12 563 pg/mL (200-900)
== END 2024-11-19 12:19 | disposition home or self-care (01) ==
LOC: HO.LAB 12:18
PROVIDERS: Absent Provider Internal Medicine Endocrinology, Diabetes & Metabolism; PCP Internal Medicine; Visit Provider Internal Medicine
DX: E53.8 Deficiency of other specified B group vitamins (principal); E78.00 Pure hypercholesterolemia, unspecified; E55.9 Vitamin D deficiency, unspecified; E11.29 Type 2 diabetes mellitus with other diabetic kidney complication; R80.9 Proteinuria, unspecified; Z79.4 Long term (current) use of insulin
CPT/HCPCS: 36415; 80048; 82306; 82607; 82746; 84443

== ENCOUNTER 2025-01-14 11:18 | Outpatient (AMB) | payer MEDICARE, SELFPAY ==
--- NOTE | 2025-01-14 11:23 | A.OFFVIS_ITS ---
Vital Signs 01/14/25 11:26 Height 5 ft Weight 224 lb 6.889 oz BMI 43.8 BP 118/62 Blood Pressure Location Rt brachial Position Sitting Pulse 77 Pulse Source Pulse Oximeter Pulse Oximetry (%) 97 Oxygen Delivery Method Room Air Intake Visit Reasons: f/u Type 2 DM /hyperlipidemia Intake Note: Patient present today to follow up on Type 2 Diabetes Mellitus and hyperlipidemia. Last Diabetic Eye exam:?next month at Dr. George Last Podiatry Visit: Does not see a Ecg Technician Random Glucose: mg/dL 158 Most Recent HgA1C: DUE Accompanied by: Self / Same As Patient Allergies atorvastatin Adverse Reaction (Intermediate, Verified 01/14/25 11:28) myalgia, low back pain pravastatin Adverse Reaction (Intermediate, Verified 01/14/25 11:28) myalgia, low back pain IVP dye Allergy (Mild, Uncoded 01/14/25 11:28) Nausea Medication List - Last Reconciled 01/14/25 by Jimmy Biswas MD blood sugar diagnostic As directed blood-glucose sensor (ClearContext Tara 3 Plus Sensor device) As directed change every 14 days empagliflozin (Jardiance) 10 mg PO DAILY ezetimibe 10 mg PO DAILY insulin glargine (Lantus Solostar U-100 Insulin) 30 units (0.3 mL) subcut DAILY insulin lispro (Humalog KwikPen (U-100) Insulin) subcutaneously 3 times a day; Take 14 units pre breakfast and lunch and 20 units pre supper lancets (FreeStyle Lancets) As directed metformin ER 1,000 mg (2 x 500 mg) PO DAILY 30 days pantoprazole 40 mg PO BID pen needle, diabetic USE FOUR TIMES A DAY tirzepatide (Mounjaro) 7.5 mg (0.5 mL) subcut QWEEK HPI Comments Details: 64 yo female today for fup visit , She is feeling well. Tara Download to shows she is using the sensor % of the time. Average glucose 178 with G mi of 7.6% and variability 27.5 %. 81% in target range with 19% hyperglycemia 0% hypoglycemia Pattern shows sugars in range with post-dinner hyperglycemia She has DM type 2 diagnosed 2012. She is Currently on Metformin 1000 mg extended release , Lantus 30 units daily , Humalog 14 units before B and L and 20 units before dinner , Jardiance 10 mg QD- . Mounjaro 7.5 mg Qwkly stopped No hypoglycemia Complications: no retinopathy, nephropathy, neuropathy, CVA, CAD, PVD. Last ophthalmology evaluation: has appt 02/2025 - no retinopathy . . She deneis numbness, tingling, blurred vision. Her weight is stable. Laboratory Tests 08/30/18 11/08/18 12/06/18 13:14 12:00 11:17 Hgb Hct Sodium Potassium Creatinine Estimated GFR Fasting Glucose Estimat Average Glucose Hemoglobin A1c 6.5 Hgb A1c Fingerstick 7.8 Hemoglobin A1c % Calcium AST ALT Albumin Triglycerides Cholesterol LDL Cholesterol Direct 87 LDL Cholesterol, Calc HDL Cholesterol TSH Urine Creatinine Urine Microalbumin Microalb/Creat Ratio 06/14/20 06/14/20 06/14/20 11:11 11:11 11:11 Hgb Hct Sodium 142 Potassium 4.3 Creatinine 0.73 Estimated GFR > 60 Fasting Glucose 113 H Estimat Average Glucose 160 Hemoglobin A1c Hgb A1c Fingerstick Hemoglobin A1c % 7.2 Calcium 8.9 AST 14 ALT 15 Albumin 4.0 Triglycerides 74 Cholesterol 137 LDL Cholesterol Direct LDL Cholesterol, Calc 81 HDL Cholesterol 42 TSH 0.61 Urine Creatinine 54.13 Urine Microalbumin 9.0 Microalb/Creat Ratio 16.6 06/14/20 11:11 Hgb 13.9 Hct 45.6 Sodium Potassium Creatinine Estimated GFR Fasting Glucose Estimat Average Glucose Hemoglobin A1c Hgb A1c Fingerstick Hemoglobin A1c % Calcium AST ALT Albumin Triglycerides Cholesterol LDL Cholesterol Direct LDL Cholesterol, Calc HDL Cholesterol TSH Urine Creatinine Urine Microalbumin Microalb/Creat Ratio [facility] Medical History Alpha thalassemia trait 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 Maternal Uncle No problems noted. Mother Cardiovascular disease Liver cancer Breast cancer Father No problems noted. Maternal Aunt No problems noted. 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 Absence of acromegalic features. Neck exam reveals nl size thyroid about 15 gms. No thyroid nodules palpable. No carotid bruits present. Not able to appreciate any masses or adenopathy in the neck Lungs CTA. Heart S1 S2, Reg R/R. No M/R/ G. Skin exam reveals absence of vitiligo or acanthosis nigricans. Abdominal exam reveals Soft NT/ND with NA BS. No organomegaly present. Neck Other: . Extrem Other: Visual exam of foot performed. No ulcerations or open lesions. No onchomycosis, no callouses.Pulses 2 + distally Sensation intact to monofilament exam. Vibratory sensation sensed is intact with 128 Hz tuning fork Results AMB Hemoglobin A1c AMB Hemoglobin A1c 6.8 % Last Edit by Trudy Barnard CMA on 01/14/25 11:46 Results Reviewed Results Reviewed: Laboratory Last Values Glucose (Clinic) 158 mg/dL (60-115) H 01/14/25 11:35 Assessment & Plan Assessment & Plan (1) Diabetes type 2, controlled: Code(s): E11.9 - Type 2 diabetes mellitus without complications Category: Medical Plan: This is a 62-year-old white female with history of type 2 diabetes being treated with metformin, basal- bolus insulin and Jardiance with excellent improved glycemic control and no known microvascular or macrovascular complications Plan is to continue the current regimen (2) Dyslipidemia: Code(s): E78.5 - Hyperlipidemia, unspecified Category: Medical Plan: Lipid profile at goal Orders: Orders AMB Hemoglobin A1c Today E11.29 - Type 2 diabetes mellitus with other diabetic kidney complication, R80.9 - Proteinuria, unspecified, Z79.4 - senior living (cur rent) use of insulin Referrals Podiatry Referral E11.29 - Type 2 diabetes mellitus with other diabetic kidney complication, R80.9 - Proteinuria, unspecified, Z79.4 - senior living (current) use of insulin Medications: Discontinued tirzepatide (Mounjaro) Discontinued Reason: Doctor's Order 7.5 mg (0.5 mL) subcut QWEEK 2 mL 4RF Coding Level of Care Code Est Pt Level 4 (13553) Complex EM visit Add On G2211 Diagnoses Diabetes type 2, controlled E11.9 Dyslipidemia E78.5
[2025-01-14 11:26] VITALS: BP 118/62; PULSE 77; O2SAT 97; BMI 43.8
[2025-01-14 11:39] LABS: Glucose, Whole Blood 158 mg/dL (60-115)
== END 2025-01-14 12:13 | disposition home or self-care (01) ==
LOC: HO.ENCR 11:19
PROVIDERS: PCP Internal Medicine; Visit Provider Internal Medicine Endocrinology, Diabetes & Metabolism
DX: E11.29 Type 2 diabetes mellitus with other diabetic kidney complication (principal); R80.9 Proteinuria, unspecified; Z79.4 Long term (current) use of insulin; E78.5 Hyperlipidemia, unspecified
CPT/HCPCS: 99214; G2211

== ENCOUNTER → 2025-01-14 11:18 | Outpatient (BNVA) | payer MEDICARE, SELFPAY | PROVIDERS: PCP Internal Medicine; Visit Provider Internal Medicine Endocrinology, Diabetes & Metabolism | DX: E11.29 Type 2 diabetes mellitus with other diabetic kidney complication (principal); E11.21 Type 2 diabetes mellitus with diabetic nephropathy; R80.9 Proteinuria, unspecified; E78.5 Hyperlipidemia, unspecified; Z79.4 Long term (current) use of insulin; E66.01 Morbid (severe) obesity due to excess calories; Z68.41 Body mass index [BMI] 40.0-44.9, adult | CPT/HCPCS: 82947; 83036; 99212 ==

== ENCOUNTER 2025-02-16 11:46 | Outpatient (REF) | payer MEDICARE, SELFPAY ==
[2025-02-16 12:01] LABS: MANUAL DIFF FLAG NO
[2025-02-16 12:16] LABS: Hematocrit 47.6 % (37.0-47.0); Hemoglobin 14.3 g/dl (12.0-16.0); Imm Gran Abs Auto 0.09 X10*3/uL (0.00-0.03); Imm Gran Pct Auto 1.1 % (0.0-0.4); Lymphocytes Absolute Auto 2.5 X10*3/uL (1.2-4.9); Mean Corpuscular HGB Conc 30.0 g/dl (31.0-35.0); Mean Corpuscular Hemoglobin 19.6 pg (27.0-33.0); Mean Corpuscular Volume 65.1 fL (80.0-98.0); NRBC Abs Auto 0.000 X10*3/uL (0.0-0.012); NRBC Pct Auto 0.0 /100WBC (0.0-0.2); Platelet Count 256 X10*3/uL (160-400); Red Blood Count 7.31 X10*6/uL (4.20-5.50); White Blood Count 8.4 X10*3/uL (4.8-10.8)
[2025-02-16 12:42] LABS: Appearance Urine Clear; Glucose Urine UA >=1000 mg/dL (Negative); PH 6.0 (5.0-9.0); Specific Gravity - Urine 1.020 (1.005-1.025); UMIC TRIGGER UACC YES
[2025-02-16 12:58] LABS: UACC Culture Trigger YES
[2025-02-16 13:01] LABS: Alanine Aminotransferase 15 U/L (0-31); Albumin Level 4.3 g/dL (3.5-5.0); Alkaline Phosphatase 88 U/L (39-117); Anion Gap 14 (12-20); Aspartate Amino Transferase 21 U/L (5-31); Blood Urea Nitrogen 20 mg/dL (9-16); Calcium 10.1 mg/dL (8.4-10.2); Carbon Dioxide 27 mmol/L (22-29); Chloride 107 mmol/L (96-108); Cholesterol 157 mg/dL (<200); Estimated Glomerular Filt Rate > 60; HDL Cholesterol 41 mg/dL (>40); Potassium 4.5 mmol/L (3.3-5.1); Sodium 143 mmol/L (135-145); Total Protein 7.5 g/dL (6.5-8.0); Triglycerides 79 mg/dL (<150)
[2025-02-16 13:12] LABS: Microalbum/Creatinine Ratio Ur 10.7 ug/mg cr (<30)
--- OUTSIDE RECORDS SUMMARY | 2025-02-16 14:11 | XMS_ITS | Data Portability ---
Author Organization [place] - [facility], Allergy Address [address] [address] Care Team Providers Care Log Cooker Name Role Phone AMBER REYES Primary Care Provider Assessment Encounter Date Assessment Date Assessment LastModified by Organization Details LastModified Time 09/23/2024 09/23/2024 Patient previously seen in [place] for soft tissue nodularity right neck level [...] 2024 025 [email or web address] [facility], [address] [place], [address], 08:23:46 Procedures None recorded. Surgeries None recorded. Imaging None recorded. Medication Orders None recorded. Patient TargetsNo targets recorded. Patient InstructionsNo instructions recorded. Reason for Referral Sleep Medicine Referral for Obstructive sleep apnea syndrome Referring Physician: Jareth Restrepo, Otolaryngology, Encounter Date: 09/23/2024 Problems Name Problem SNOMED Code Status Onset Date Resolution Date Notes Provider Name and Address Organization Details Recorded Time Bilateral tinnitus 8134277974375 Active 2024 JARETH JAMISON MD 100 [facility] 100, [place], [address], [facility] - [facility] 5 10:54:10 Obstructive sleep apnea syndrome 28196251 Active 2024 JARETH JAMISON MD 100 [facility] 100, [place], [address], [facility] - [facility] 5 10:54:24 Finding of neck region 526370879 Active 2024 JARETH JAMISON MD 100 [facility] 100, [place], [address], [facility] 5 10:54:30 Problem Notes None recorded. [...] Updated DateTime 09/23/2024 152.4 cm 43 kg/m2 85174.32 g James Tapia [place] - [facility] 09/23/2024 10:36:30 Social History None recorded. Functional Status None recorded. Mental Status None recorded. Family History Nothing Reported. Medical History No medical history recorded. Gynecological HistoryNo gynecological history recorded. Obstetrics History GPAL:G 0 P 0 0 0 0 Past Encounters Encounter ID Performer Location Encounter Start Date Encounter Closed Date Diagnosis/Indication Diagnosis SNOMED-CT Code Diagnosis ICD10 Code Diagnosis IMO Codes Diagnosis Note [id number] JARETH BACA MD [facility] [address] [address] 09/23/2024 10:20:51 09/23/2024 10:58:43 Bilateral tinnitus 2371973318 102 H93.13 934007 Likely exacerbate d by poor sleep and TMJ Obstructiv e sleep apnea syndrome 29758296 G47.33 6849049 Using only for a few hours. Refer to sleep medicine for management Finding of neck region 654123772 R22.1 348010 No discrete mass palpable.. maybe less than [...] Name 09/23/2024 2 [place] [id number] Vangie Waters Florentino [id number] Vangie Waters Florentino 09/23/2024 1 [place] B[place] [facility] Vangie Waters Florentino [id number] 1 Vangie Waters Florentino Notes Date Note Type Note Provider Name and Address Organization Details Recorded Time 09/23/2024 text/html ROS as noted in the HPI Right neck mass since April. Only discomfort with pressing. hard to find. Non smoker 2-3 wine per month. Work up in [place] showed no mass on ultrasound and normal FOL. She has tinnitus in both ears and SELENE on CPAP. Anxious about hx of cancer She notes hard to find area of concern JARETH RESTREPO MD [address] [place] [address],[place] [address], [place], [address], [facility] - [facility] 09/23/2024 12:03:22 OBGyn Episode No OBEpisode recorded.
--- OUTSIDE RECORDS SUMMARY | 2025-02-16 14:11 | XMS_ITS | Clinical Summary ---
Author Organization 175 [facility] Address [address] [place] [address] Phone Care Team Providers Care Machine Candle Molder Name Role Phone Salvatore Gramajo MD Primary Care Provider [phone] Allergies Active Allergy Reactions Criticality Noted Date Comments Atorvastatin 11/26/2024 Other 11/26/2024 IVP dye Pravastatin 11/26/2024 Medications pantoprazole (PROTONIX) 40 mg EC tablet TAKE 1 TABLET BY MOUTH TWICE A DAY 180 tablet 1 5 Active FreeStyle Tara 3 Plus Sensor device 1 EA. 5 Active ezetimibe (ZETIA) 10 mg tablet Take 1 tablet (10 mg total) by mouth 1 (one) time each day. for 90 days 5 Active insulin lispro (HumaLOG KwikPen) 100 unit/mL injection pen Inject 14 Units under the skin 3 (three) times a day before meals. 5 Active metFORMIN XR (GLUCOPHAGE-XR ) 500 mg 24 hr tablet Take 2 tablets (1,000 mg total) by mouth 1 (one) time each day. 5 Active Mounjaro 7.5 mg/0.5 mL injection Inject 0.5 mL (7.5 mg total) under the skin every 7 (seven) days. 5 Active Lantus Solostar U-100 Insulin 100 unit/mL (3 mL) injection pen INJECT 30 UNITS (0.3 ML) SUBCUTANEOUSLY DAILY 5 Active Encounters Date Type Department Care Team Description 11/26/2024 Telephone Gastroenterology [facility] 175 [facility] 175 [facility] [address] [place] [phone] Chiqui Lam MD from Last 3 Months Social History Tobacco Use Types Packs/Day Years Used Date Smoking Tobacco: Never Assessed Comments Unknown Sex and Gender Information Value Date Recorded Sex Assigned at Not on file Legal Sex Female 3:53 AM EST Gender Identity Not on file Sexual Orientation Not on file Plan of Treatment Upcoming Encounters Date Type Department Care Team (Late st Contact Info) Description 03/16/2025 9:30 AM EST Appointment [facility] Endoscopy [address] [place] [address] Karl Johansen MD [address] [address] Health Maintenance Due Date Last Done Comments Breast Cancer Screening 1959 DTaP,Tdap,and Td Vaccines (1 - Tdap) 1978 Cervical Cancer Screening: P ap Smear 1980 Pneumococcal Vaccine: 50+ Ye ars (1 of 1 - PCV) 2009 Zoster Vaccines (1 of 2) 2009 Hepatitis C Screening 01/16/2024 Medicare Annual Wellness Visit 01/16/2024 Osteoporosis Screening (Bone Density Screening) 01/16/2024 Social Influencers of Health Screening 01/16/2024 Falls Risk Assessment 2024 Depression Screening 04/09/2024 COVID-19 Vaccine (1 - 2023-2 5 season) 2024 Influenza Vaccine (#1) 2024 RSV Immunization Adult Patie nts (1 - 1-dose 75+ series) 2034 Colorectal Cancer Screening: Colonoscopy 08/22/2034 08/22/2024 HIB Vaccines Aged Out No longer eligi ble based on patient's age to complete this topic HPV Vaccines Aged Out No longer eligi ble based on patient's age to complete this topic Hepatitis A Vaccines Aged Out No long er eligible based on patient's age to complete this topic Hepatitis B Vaccines Aged Out No long er eligible based on patient's age to complete this topic IPV Vaccines Aged Out No longer eligi ble based on patient's age to complete this topic MMR Vaccines Aged Out No longer eligi ble based on patient's age to complete this topic Meningococcal ACWY Vaccine Aged Out N o longer eligible based on patient's age to complete this topic Meningococcal B Vaccine Aged Out No l onger eligible based on patient's age to complete this topic RSV Immunization Patients Un milagro 20 months Aged Out No longer eligible b ased on patient's age to complete this topic Varicella Vaccines Aged Out No longer eligible based on patient's age to complete this topic Goals Goal Patient Goal Type Associated Problems Recent Progress Patient-Stated? Author Autogenera eber Goal Care Plan Autogenerated Problem No Karrie Muller Procedures Procedure Name Priority Date/Time Associated Diagnosis Comments EXTERNAL COLONOSCOPY REPORT Routine 08/22/2024 9:32 AM EDT from Last 3 Months or Most Recently Relevant to Health Maintenance Results * External Colonoscopy Report (08/22/2024 9:32 AM EDT) Anatomical Region Laterality Modality Endoscopy Historical Provider GI~PROCEDURE ORDERABLES F inal Result from Last 3 Months or Most Recently Relevant to Health Maintenance Additional Health Concerns Active Problems Noted Date Diagnosed Date Autogenerated Problem 01/07/2025 Insurance MEDICARE [facility] Care Teams Machine Candle Molder Relationship Specialty Start Date End Date Salvatore Gramajo MD [address] [place] [address] [address] DOROTA Vallejo PCP - General Internal Medicine 11/26/24
== END 2025-02-16 11:47 | disposition home or self-care (01) ==
LOC: HO.LAB 11:46
PROVIDERS: PCP Internal Medicine; Visit Provider Internal Medicine
DX: E78.00 Pure hypercholesterolemia, unspecified (principal); E11.9 Type 2 diabetes mellitus without complications; D64.9 Anemia, unspecified
CPT/HCPCS: 36415; 80053; 80061; 81001; 82043; 82570; 83036; 85025; 87086

== ENCOUNTER 2025-02-18 12:35 | Outpatient (AMB) | payer MEDICARE, SELFPAY ==
[2025-02-18 12:53] VITALS: BP 126/82; PULSE 81; O2SAT 96; BMI 43.2
--- NOTE | 2025-02-18 12:53 | A.OFFPC_ITS ---
Vital Signs 02/18/25 12:53 Height 5 ft Weight 221 lb 6 oz BMI 43.2 BP 126/82 Blood Pressure Location Lt brachial Position Sitting Pulse 81 Pulse Source Pulse Oximeter Pulse Oximetry (%) 96 Oxygen Delivery Method Room Air Intake Visit Reasons: 4 mnth f/u Log Rafter Required: No Accompanied by: Self / Same As Patient Allergies atorvastatin Adverse Reaction (Intermediate, Verified 02/18/25 13:18) myalgia, low back pain ezetimibe Adverse Reaction (Intermediate, Verified 02/18/25 13:25) pruritus pravastatin Adverse Reaction (Intermediate, Verified 02/18/25 13:18) myalgia, low back pain IVP dye Allergy (Mild, Uncoded 02/18/25 13:18) Nausea Medication List - Last Reconciled 02/18/25 by Salvatore Gramajo MD blood sugar diagnostic As directed blood-glucose sensor (FreeStyle Tara 3 Plus Sensor device) As directed change every 14 days empagliflozin (Jardiance) 10 mg PO DAILY ezetimibe 10 mg PO DAILY insulin glargine (Lantus Solostar U-100 Insulin) 30 units (0.3 mL) subcut DAILY insulin lispro (Humalog KwikPen (U-100) Insulin) subcutaneously 3 times a day; Take 14 units pre breakfast and lunch and 20 units pre supper lancets (FreeStyle Lancets) As directed metformin ER 1,000 mg (2 x 500 mg) PO DAILY 30 days pantoprazole 40 mg PO BID pen needle, diabetic (Brie 2nd Gen Pen Needle) USE FOUR TIMES A DAY Tobacco use date assessed: 02/18/25 Fall risk assessment: No Falls in past year Last assessed Fall Risk: 02/18/25 Dental Screening Dental Screen Date: 02/18/25 Did you have a dental visit in the last 12 months?: Yes Did you have a dental problem in the last 6 months where you did not have access to dental care?: No Was dental information given to patient?: Patient has dentist HPI 4 mnth f/u HPI Details Patient comes in today for her follow up visit States that she feels okay She denies any headaches Denies any increased shortness of breath but recalls experiencing some chest discomfort about 2 weeks ago that she states occurred after she ran some errands States that she then lied down and rested for about an hour and when she got up, the chest heaviness was gone but she was then experiencing increased dizziness that lasted for a whole day before subsiding on its own States that the above symptoms have not recurred since No nausea/vomiting, no abdominal pain No change in bowel habits noted States that she now has a new CPAP device and has been using it for a while now but she still feels fatigued often She had her follow-up labs done a couple of days ago - to discuss her results [facility] Medical History Alpha thalassemia trait Diabetic nephropathy associated with type 2 diabetes mellitus senior living (current) use of insulin Morbid obesity with BMI of 40.0-44.9, adult Insomnia GERD without esophagitis Obstructive sleep apnea Thalassemia trait History of left breast cancer (~2000) Pure hypercholesterolemia Diabetes mellitus Dyslipidemia Diabetes type 2, controlled Surgical History Hx of colonoscopy (~03/19/15) S/P lumpectomy, left breast Hx of ventral hernia repair (~2003) S/P bilateral oophorectomy (~2002) S/P radical vaginal hysterectomy (~1989) Family History Paternal Aunt No problems noted. Maternal Uncle No problems noted. Mother Cardiovascular disease Liver cancer Breast cancer Father No problems noted. Maternal Aunt No problems noted. 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 1. Little interest or pleasure in doing things: not at all 2. Feeling down, depressed, or hopeless: not at all 3. Trouble falling or staying asleep, or sleeping too much: several days 4. Feeling tired or having little energy: more than half the days 5. Poor appetite or overeating: several days 6. Feeling bad about yourself - or that you are a failure or have let yourself or your family down: not at all 7. Trouble concentrating on things, such as reading the newspaper or watching television: not at all 8. Moving or speaking so slowly that other people could have noticed. Or the opposite - being so fidgety or restless that you have been moving around a lot more than usual: not at all 9. Thoughts that you would be better off or of hurting yourself in some way: not at all Total score: 4 Depression Screening Interpretation: Positive Depression Screening Follow-up: Follow-up Visit Requested Depression Screening Done: Yes 42754 - PHQ-9 Billing: Yes Source: Developed by Drs. Jimmy Richey, Angelica Calderon, Hernandez Gold and colleagues, with an educational joi from [employer]. Thrive Questionnaire Date Thrive assessed: 02/18/25 I am a: Patient What is your living situation today?: I have a steady place to live Within the past 12 months, did the food you bought not last and you didn't have the money to get more?: I choose not to answer this question Within the past 12 months, did you worry whether your food would run out before you got money to buy more?: Never true Do you have trouble paying for medicines?: No Do you have trouble getting transportation to medical appointments?: No Do you have trouble paying your heating and electricity bill?: No Do you have trouble taking care of your child, family member or friend?: No Do you have trouble with day-to-day activities such as bathing, preparing meals, shopping, managing finances, etc.?: No Are you currently unemployed and looking for a job?: No Are you interested in more education?: No Please select the resources that you would like help with: None Currently or been in a relationship where the following occur: No concerns reported THRIVE Score: 0 AUDIT C Alcohol Use Questionnaire (AUDIT-C) 1. How often do you have a drink containing alcohol?: 2-4 times a month 2. How many drinks containing alcohol do you have on a typical day when you are drinking?: 1 or 2 3. How often do you have six or more drinks on one occasion?: Never Total Score: 2 Score Reviewed/Action Taken: Yes ANUPAMA-7 AMB Questionnaire ANUPAMA-7 Date ANUPAMA - 7 assessed: 02/18/25 Feeling nervous, anxious, or on edge: 0 = Not at all Not being able to stop or control worryin = Not at all Worrying too much about different things: 0 = Not at all Trouble relaxin = Not at all Being so restless that it is hard to sit still: 0 = Not at all Becoming easily annoyed or irritable: 0 = Not at all Feeling afraid as if something awful might happen: 0 = Not at all Total ANUPAMA-7 score (0-4 normal; 5-9 mild; 10-14 moderate; 15-21 severe): 0 Source: Developed by Drs. Jimmy Richey, Angelica Calderon, Hernandez Gold and colleagues, with an educational joi from [employer]. Review of Systems Const Reports body aches (occasional but not as bad as when she was on statins), Denies chills, Reports fatigue (chronic), Denies fever(s) and Denies headache(s) ENT Denies dysphagia, Reports dizziness (but had a bout following some chest discomfort recently - see HPI), Denies otalgia, Denies headache(s), Denies neck pain, Denies odynophagia and Denies sore throat Card Denies chest pain (but reports (+) isolated incident of chest discomfort - see HPI), Denies rapid heart rate, Denies irregular heart rhythm, Denies palpitations and Denies dyspnea Resp Denies chest congestion, Denies cough and Denies dyspnea GI Denies abdominal pain, Denies constipation, Denies dysphagia, Denies heartburn, Denies diarrhea, Denies nausea, Denies odynophagia and Denies vomiting Denies hematuria, Denies difficulty voiding, Denies nocturia and Denies dysuria Musc Denies back pain, Reports arthralgias (on and off, involving multiple joints) and Denies neck pain Skin/Breast Denies rash Neuro Reports dizziness (but had a bout following some chest discomfort recently - see HPI), Denies headache(s) and Denies paresthesias Psych Denies anxiety and Denies depression Endo Reports fatigue (chronic) and Denies palpitations Physical exam (Primary Care) Vital Signs: Last Vital Signs Pulse 81 02/18/25 12:53 BP 126/82 02/18/25 12:53 Pulse Ox 96 02/18/25 12:53 Oxygen Delivery Method Room Air 02/18/25 12:53 BMI result Body Mass Index 43.2 Tobacco/Smoking Status: Tobacco use Status Tobacco use date assessed 02/18/25 02/18/25 12:58 Patient Tobacco Use Status Former Tobacco user 02/18/25 12:58 Tobacco use type Cigarette 02/18/25 12:58 e-Cigarette/Vaping Use Never Used 02/18/25 12:58 PHQ-9: PHQ-9 Score PHQ-9: Total score 4 02/18/25 13:45 Depression Screening Interpretation: Positive Depression Screening Follow-up: Follow-up Visit Requested Thrive Assessment: Date of Thrive Assessment Date Thrive assessed 02/18/25 02/18/25 12:58 Currently or been in a relationship where the following occur: No concerns reported Const General: no acute distress and alert HENMT Ears: TM's normal bilaterally and EAC's normal Throat: Yes posterior oropharynx normal and Yes tonsils normal (no TP congestio n) Neck Neck: Yes supple and No lymphadenopathy Thyroid: Thyroid normal Resp Auscultation: clear to auscultation bilaterally, no rales and no wheezes Cardio Rate: regular rate Rhythm: regular rhythm Heart sounds: no murmurs GI Palpation (GI): Soft to palpation and nontender Auscultation: normal bowel sounds General: Yes no CVA tenderness Back/Spine/Pelvis Back: no CVA tenderness Skin Rashes: no rashes Extrem General: Yes no clubbing, cyanosis or edema Results Reviewed Results Reviewed: Laboratory Tests 02/16/25 02/16/25 11:54 11:58 WBC 8.4 Hgb 14.3 Hct 47.6 H Plt Count 256 Sodium 143 Potassium 4.5 Creatinine 0.84 Estimated GFR > 60 Random Glucose 183 H Hemoglobin A1c % 7.1 H Calcium 10.1 D AST 21 ALT 15 Triglycerides 79 Cholesterol 157 LDL Cholesterol, Calc 101 H HDL Cholesterol 41 Ur Specific [place] 1.020 Urine Protein Negative Urine Glucose (UA) >=1000 H Urine Blood Negative Urine Nitrite Negative Ur Leukocyte Esterase Negative Microalb/Creat Ratio 10.7 Coding Level of Care Code Est Pt Level 4 (85264) Complex EM visit Add On G2211 Diagnoses Chest discomfort R07.89 Type 2 diabetes mellitus without complication, with long-term current use of insulin E11.9; Z79.4 Diabetes mellitus complication status: without complication Diabetes mellitus half-way insulin use: with intermediate manager use Diabetes mellitus type: type 2 Pure hypercholesterolemia E78.00 Obstructive sleep apnea G47.33 GERD without esophagitis K21.9 Primary insomnia F51.01 Insomnia type: primary Morbid obesity with BMI of 40.0-44.9, adult E66.01; Z68.41 Additional Codes PHQ-9 - 03598 - PHQ-9 Billing: Yes ([id number]) Assessment & Plan Assessment & Plan (1) Chest discomfort: Code(s): R07.89 - Other chest pain Category: Medical Plan: Have advised patient that with her family Hx and the fact that she is a diabetic, we should be prudent and get her checked out by cardiology ZAIDA for her recent bout of chest discomfort, so we will refer her to cardiology for an urgent consultation as she is scheduled to leave for [place] for the winter sometime in the middle of next month (2) Diabetes mellitus: Code(s): E11.9 - Type 2 diabetes mellitus without complications Category: Medical Qualifiers: Diabetes mellitus complication status: without complication Diabetes mellitus half-way insulin use: with half-way use Diabetes mellitus type: type 2 Qualified Code(s): E11.9 - Type 2 diabetes mellitus without complications; Z79.4 - senior living (current) use of insulin Plan: Her HgbA1c was at 7.1% on her recent labs done a couple of days ago (her in- office HgbAqc was previously at 6.8% just over a month ago) - goal is at least <7.0% but ideally <6.5% Reinforced diabetic diet Patient admits to late night eating often and advised that she should try to correct this habit Continue Jardiance 10 mg QD, Metformin ER 1000 mg QD, Lantus 30 units QD and Humalog 14 units before breaskfast and lunch and 20 units before dinner She was started on Mounjaro by endocrinology a few months ago but she stopped taking it about 2 to 3 months ago due to side effects Follow up with endocrinology as scheduled (3) Pure hypercholesterolemia: Code(s): E78.00 - Pure hypercholesterolemia, unspecified Category: Medical Plan: Results of her labs done a couple of days ago reviewed and discussed with patient - she is cautioned that her cholesterol levels have again increased from previous and her LDL is now again over 100 mg/dl Reinforced low cholesterol diet She admits to stopping her Atorvastatin 10 mg QD a while back due to side effects She also could not tolerate Ezetimibe due to increased itching Will try starting her on Praluent Pen 75 mg SQ Q 2 weeks Will recheck her labs and fasting lipids when she returns from [place] in August 2025 for follow up (4) Obstructive sleep apnea: Comment: The last sleep study was in 2008. Severe degree of sleep apnea. AHI was 72/hr and the oxygen esau was 82% Code(s): G47.33 - Obstructive sleep apnea (adult) (pediatric) Category: Medical Plan: Continue using her CPAP device when sleeping at night daily Follow-up with sleep medicine as scheduled (5) GERD without esophagitis: Code(s): K21.9 - Gastro-esophageal reflux disease without esophagitis Category: Medical Plan: Dietary restrictions reinforced Continue Omeprazole 20 mg QD and Famotidine 20 mg Q HS PRN (6) Insomnia: Code(s): G47.00 - Insomnia, unspecified Category: Medical Qualifiers: Insomnia type: primary Qualified Code(s): F51.01 - Primary insomnia Plan: Sleep hygiene reinforced Continue Zolpidem 10 mg Q HS PRN (7) Morbid obesity with BMI of 40.0-44.9, adult: Code(s): E66.01 - Morbid (severe) obesity due to excess calories; Z68.41 - Body mass index [BMI] 40.0-44.9, adult Category: Medical Plan: Reinforced diet/exercise as tolerated/lose weight Plan Follow up in August 2025 when patient returns from her winter stay down in [place] Orders: Orders Lipid Panel 08/22/25 E78.00 - Pure hypercholesterolemia, unspecified TSH reflex Free T4 08/22/25 E78.00 - Pure hypercholesterolemia, unspecified Vitamin D 25-OH Total 08/22/25 E55.9 - Vitamin D deficiency, unspecified Vitamin B12 and Folate 08/22/25 E53.8 - Deficiency of other specified B group vitamins Complete Blood Count Auto Diff 08/22/25 D64.9 - Anemia, unspecified Comprehensive [place]. Panel Fast 08/22/25 E78.00 - Pure hypercholesterolemia, unspecified Microalbumin, Random (w Creat) 08/22/25 E11.9 - Type 2 diabetes mellitus without complications Hemoglobin A1c 08/22/25 E11.9 - Type 2 diabetes mellitus without complications UA CC w/rflx Micro + Cult 08/22/25 R30.0 - Dysuria Referrals Cardiology Referral E11.9 - Type 2 diabetes mellitus without complications, R07.89 - Other chest pain Medications: New Praluent Pen (alirocumab) Patient is unable tolerate statins (atorvastatin, simvastatin, rosuvastatin) due to myalgia and joint pains; unable to tolerate Ezetimibe due to itching/ pruritus 75 mg subcut Q14D 2 mL 5RF high cholesterol 30 days NS E11.9 - Type 2 diabetes mellitus without complications, E78.00 - Pure hypercholesterolemia, unspecified
--- OUTSIDE RECORDS SUMMARY | 2025-02-18 15:12 | XMS_ITS | Clinical Summary ---
Author Organization 175 [facility] Address [address] [place] [address] Phone Care Team Providers Care Household Manager Name Role Phone Salvatore Gramajo MD Primary Care Provider Allergies Active Allergy Reactions Criticality Noted Date [...] Department Care Team Description 11/26/2024 Telephone Gastroenterology [facility] [address] [facility] 175 [facility] [address] [place] [phone] Chiqui Lam MD from Last 3 [...] Info) Description 03/16/2025 9:30 AM EST Appointment [facility] Endoscopy [address] [place] [address] Karl Johansen MD [address] [address] Health Maintenance Due Date Last Done Comments [...] Depression Screening 04/09/2024 COVID-19 Vaccine (1 - 2024-2 6 season) 2024 Influenza Vaccine (#1) 2024 RSV [...] Diagnosed Date Autogenerated Problem 01/07/2025 Insurance MEDICARE [facility] Care Teams Household Manager Relationship Specialty Start Date End Date Salvatore Gramajo MD [address] [place] [address] [address] DOROTA Vallejo PCP - General Internal Medicine 11/26/24
--- OUTSIDE RECORDS SUMMARY | 2025-02-18 15:12 | XMS_ITS | Data Portability ---
Author Organization [place] - [facility], Allergy Address [address] [address] Care Team Providers Care Lip Of Shank Cutter Name Role Phone AMBER REYES Primary Care Provider Assessment Encounter Date Assessment Date Assessment LastModified by Organization Details LastModified Time 09/23/2024 09/23/2024 Patient previously seen in [place] for soft tissue nodularity right neck level [...] 2024 025 [email or web address] [facility], [address] [place], [address], 08:23:46 Procedures None recorded. Surgeries None recorded. Imaging None recorded. Medication Orders None recorded. Patient TargetsNo targets recorded. Patient InstructionsNo instructions recorded. Reason for Referral Sleep Medicine Referral for Obstructive sleep apnea syndrome Referring Physician: Jareth Restrepo, Otolaryngology, Encounter Date: 09/23/2024 Problems Name Problem SNOMED Code Status Onset Date Resolution Date Notes Provider Name and Address Organization Details Recorded Time Bilateral tinnitus 9526226535481 Active 2024 JARETH JAMISON MD 100 [facility] 100, [place], [address], [facility] - [facility] 5 10:54:10 Obstructive sleep apnea syndrome 25961511 Active 2024 JARETH JAMISON MD 100 [facility] 100, [place], [address], [facility] - [facility] 5 10:54:24 Finding of neck region 004741067 Active 2024 JARETH JAMISON MD 100 [facility] 100, [place], [address], [facility] 5 10:54:30 Problem Notes None recorded. [...] Updated DateTime 09/23/2024 152.4 cm 43 kg/m2 38236.32 g James Tapia [place] - [facility] 09/23/2024 10:36:30 Social History None recorded. Functional Status None recorded. Mental Status None recorded. Family History Nothing Reported. Medical History No medical history recorded. Gynecological HistoryNo gynecological history recorded. Obstetrics History GPAL:G 0 P 0 0 0 0 Past Encounters Encounter ID Performer Location Encounter Start Date Encounter Closed Date Diagnosis/Indication Diagnosis SNOMED-CT Code Diagnosis ICD10 Code Diagnosis IMO Codes Diagnosis Note [id number] JARETH BACA MD [facility] [address] [address] 09/23/2024 10:20:51 09/23/2024 10:58:43 Bilateral tinnitus 6950933710 102 H93.13 046123 Likely exacerbate d by poor sleep and TMJ Obstructiv e sleep apnea syndrome 91576681 G47.33 5578926 Using only for a few hours. Refer to sleep medicine for management Finding of neck region 139483912 R22.1 704902 No discrete mass palpable.. maybe less than [...] Name 09/23/2024 2 [place] [id number] Vangie Waters Florentino [id number] Vangie Waters Florentino 09/23/2024 1 [place] B[place] [facility] Vangie Waters Florentino [id number] 1 Vangie Waters Florentino Notes Date Note Type Note Provider Name and Address Organization Details Recorded Time 09/23/2024 text/html ROS as noted in the HPI Right neck mass since April. Only discomfort with pressing. hard to find. Non smoker 2-3 wine per month. Work up in [place] showed no mass on ultrasound and normal FOL. She has tinnitus in both ears and SELENE on CPAP. Anxious about hx of cancer She notes hard to find area of concern JARETH RESTREPO MD [address] [place] [address],[place] [address], [place], [address], [facility] - [facility] 09/23/2024 12:03:22 OBGyn Episode No OBEpisode recorded.
--- OUTSIDE RECORDS SUMMARY | 2025-02-18 15:12 | XMS_ITS | Patient Health Record ---
Author Organization [facility] Address [address] [place] [address] Care Team Providers Care Roller Picker Name Role Phone Steve Tenorio MD Primary Care Provider Nicholas Frausto Unavailable [phone] Reason For Referral No Information Medications Medication [...] Status W/U Status Risk Notes Problem Onychomycosis (107579973) Onychomycosis (110.1) Active confirmed Problem Pain in limb (36618762) Pain in Limb (729.5) Active confirmed Plan Of Treatment No Information Insurance Providers Payer Name Payer Address Payer Phone Subscriber Number Group Number Insured Name Patient Relationship to Insured Coverage Start Date Coverage End Date [facility] [address] [place] [address] [phone] [id number] Vangie Good Self - patient is the insured Medical (General) History Medical History History ICD Code cancer diverticulosis reflux chicken pox Surgical History Surgery Date(Month/Year) lumpectomy 1999 hernia 2004 oopherectomy 2001 hysterectomy 1992
== END 2025-02-18 13:42 | disposition home or self-care (01) ==
LOC: HO.HMCH 12:36
PROVIDERS: PCP Internal Medicine; Visit Provider Internal Medicine
DX: E11.9 Type 2 diabetes mellitus without complications (principal); Z79.4 Long term (current) use of insulin; E66.01 Morbid (severe) obesity due to excess calories; Z68.41 Body mass index [BMI] 40.0-44.9, adult; R07.89 Other chest pain; E78.00 Pure hypercholesterolemia, unspecified; G47.33 Obstructive sleep apnea (adult) (pediatric); K21.9 Gastro-esophageal reflux disease without esophagitis; F51.01 Primary insomnia

== ENCOUNTER → 2025-02-18 12:35 | Outpatient (BNVA) | payer MEDICARE, SELFPAY | PROVIDERS: PCP Internal Medicine; Visit Provider Internal Medicine | DX: R07.89 Other chest pain (principal); E11.9 Type 2 diabetes mellitus without complications; Z79.4 Long term (current) use of insulin; E78.00 Pure hypercholesterolemia, unspecified; K21.9 Gastro-esophageal reflux disease without esophagitis; F51.01 Primary insomnia; G47.33 Obstructive sleep apnea (adult) (pediatric); E66.01 Morbid (severe) obesity due to excess calories; Z68.41 Body mass index [BMI] 40.0-44.9, adult; Z71.3 Dietary counseling and surveillance | CPT/HCPCS: 96127; 99212 ==

== ENCOUNTER → 2025-03-04 08:52 | Outpatient (REF) | payer MEDICARE, SELFPAY ==
--- NOTE | 2025-03-04 08:55 | CA_ITS ---
Transthoracic Echocardiogram Patient (Last, First, Middle): Vangie Good, Gender: F Date of : 1960 Age: 64 Procedure Date: 03/04/2025 Procedure Type: Transthoracic Echocardiogram Location: OP Height: 152.4 cm Weight: 100.25 kg BSA: 1.95 m2 Heart Rate: bpm BP: 126 / 82 mmHg Metal Storage Worker: TONY Referring MD: Salvatore Gramajo MD Symptoms: R07.89 - Other chest pain Study Quality: Adequate ECG Rhythm: Sinus Conclusions: - The left ventricular systolic function is normal. The calculated ejection fraction is 66% by biplane method. - No obvious valvular pathology seen on this study. Findings Left Ventricle Normal left ventricular cavity size. The left ventricular systolic function is normal. The calculated ejection fraction is 66% by biplane method. There is no evidence of regional wall motion abnormalities. Diastolic function is normal for age. There is mild septal asymmetric hypertrophy. Right Ventricle Normal right ventricular cavity size and systolic function. Atria Both atria are normal in size. Aortic Valve There is a normal trileaflet aortic valve. There is no aortic valve stenosis. There is no aortic valve regurgitation. Mitral Valve The mitral valve appears normal. There is trace mitral valve regurgitation. There is no mitral valve stenosis. Pulmonic Valve The pulmonic valve is likely normal. Tricuspid Valve Normal tricuspid valve structure. There is no tricuspid valve regurgitation. Tricuspid regurgitation envelope is inadequate for calculation of right ventricular systolic pressure. Great Vessels The asc aorta and aortic arch are normal in size. Venous The inferior vena cava is dilated and collapses greater than 50% with inspiration. Pericardium/Pleural There is no evidence of pericardial effusion. Prior Study Comparison No prior study available for comparison. Recommendations, Care & Conclusions No obvious valvular pathology seen on this study. Measurements 2D Linear Measurements IVSd: 1.10 0.6-0.9/0.6-1.0 cm LVIDd: 3.68 3.9-5.3/4.2-5.9 cm LVIDd Index: 1.89 2.4-3.2/2.2-3.1 cm/m2 LVIDs: 2.46 2.0-3.6 cm LVPWd: 1.00 0.7-1.1 cm LA Diam: 3.30 2.7-3.8/3.0-4.0 cm LAIDs Index: 1.69 1.5-2.3 cm/m2 LV Mass: 149.00 67-162/88-224 g LV Mass Index: 76.41 43-95/49-115 g/m2 LVOT Diam: 1.90 3.0+(-)1.3 cm 2D Systolic Function EF 4C: 67.30 >55% EF 2C: 66.40 >55% EF BiP: 66.20 >55% Mitral Valve MV Pk E: 0.97 MV PK A: 0.90 MV Decel Time: 141.00 E/A: 1.10 E'Lateral: 11.20 E'Medial: 9.03 E/E' Med: 10.80 E/E' Lat: 8.70 PHT: 41.00 MVA PHT: 5.37 Decel Mora: 6.92 Aortic Valve AoV Pk Chidi: 1.52 AoV Mn Chidi: 1.08 AoV VTI: 0.34 AoV Pk Grad: 9.00 Aov Mn Grad: 5.00 AUDRA Cont.VTI: 2.09 LVOT LVOT Pk Chidi: 1.07 LVOT Mn Chidi: 0.71 LVOT VTI: 0.25 LVOT Pk Grad: 5.00 LVOT Mn Grad: 2.00 LVOT Diam: 1.90 LVOT Area: 2.84 Diastolic Function MV Pk E: 0.97 MV Pk A: 0.90 E/A: 1.10 E'Medial: 9.03 E/E' Med: 10.80 E' Laterial: 11.20 E/E' Lat: 8.70 Right Ventricle TAPSE (mm): 22.80 TVS' Chidi: 11.50 Tricuspid Valve RA Press: 8.00 Great Vessels Aorta Sinus of Valsalva: 3.02 2.0-3.[address] Ridge: 2.42 1.7-3.4 cm Ao Asc: 3.00 2.1-3.4 cm Ao Arch: 2.50 Pulmonary Veins Pulm Vein S/D 1.40 Updated in Other Vendor System with Status of Final Randy Suarez MD electronically signed on 03/04/2025 12:01:27 PM with status of Final
--- OUTSIDE RECORDS SUMMARY | 2025-03-04 09:20 | XMS_ITS | Data Portability ---
Author Organization [place] - [facility], Allergy Address [address] [address] Care Team Providers Care Finance Professional Name Role Phone AMBER REYES Primary Care Provider [phone] Assessment Encounter Date Assessment Date Assessment LastModified by Organization Details LastModified Time 09/23/2024 09/23/2024 Patient previously seen in [place] for soft tissue nodularity right neck level [...] 2024 025 [email or web address] [facility], [address] [place], [address], 08:23:46 Procedures None recorded. Surgeries None recorded. Imaging None recorded. Medication Orders None recorded. Patient TargetsNo targets recorded. Patient InstructionsNo instructions recorded. Reason for Referral Sleep Medicine Referral for Obstructive sleep apnea syndrome Referring Physician: Jareth Restrepo, Otolaryngology, Encounter Date: 09/23/2024 Problems Name Problem SNOMED Code Status Onset Date Resolution Date Notes Provider Name and Address Organization Details Recorded Time Bilateral tinnitus 4488894858036 Active 2024 JARETH JAMISON MD 100 [facility] 100, [facility] [place], [address], [facility] - [facility] 5 10:54:10 Obstructive sleep apnea syndrome 63199399 Active 2024 JARETH JAMISON MD 100 [facility] 100, [facility] [place], [address], [facility] - [facility] 5 10:54:24 Finding of neck region 482221978 Active 2024 JARETH JAMISON MD 100 [facility] 100, [facility] [place], [address], [facility] 5 10:54:30 Problem Notes None recorded. Medical [...] Updated DateTime 09/23/2024 152.4 cm 43 kg/m2 39676.32 g James Tapia [place] - [facility] 09/23/2024 10:36:30 Social History None recorded. Functional Status None recorded. Mental Status None recorded. Family History Nothing Reported. Medical History No medical history recorded. Gynecological HistoryNo gynecological history recorded. Obstetrics History GPAL:G 0 P 0 0 0 0 Past Encounters Encounter ID Performer Location Encounter Start Date Encounter Closed Date Diagnosis/Indication Diagnosis SNOMED-CT Code Diagnosis ICD10 Code Diagnosis IMO Codes Diagnosis Note [id number] JARETH BACA MD [facility] [address] [address] 09/23/2024 10:20:51 09/23/2024 10:58:43 Bilateral tinnitus 5080992422 102 H93.13 066954 Likely exacerbate d by poor sleep and TMJ Obstructiv e sleep apnea syndrome 64165793 G47.33 4208134 Using only for a few hours. Refer to sleep medicine for management Finding of neck region 928631290 R22.1 007357 No discrete mass palpable.. maybe less than [...] Name 09/23/2024 2 [place] [id number] Vangie Waters Florentino [id number] Vangie Waters Florentino 09/23/2024 1 MED[place]: [facility] Vangie Waters Florentino [id number] 1 Vangie Waters Florentino Notes Date Note Type Note Provider Name and Address Organization Details Recorded Time 09/23/2024 text/html ROS as noted in the HPI Right neck mass since April. Only discomfort with pressing. hard to find. Non smoker 2-3 wine per month. Work up in [place] showed no mass on ultrasound and normal FOL. She has tinnitus in both ears and SELENE on CPAP. Anxious about hx of cancer She notes hard to find area of concern JARETH RESTREPO MD [address] [place] [address],[place] [address], [place], [address], [facility] - [facility] 09/23/2024 12:03:22 OBGyn Episode No OBEpisode recorded.
--- OUTSIDE RECORDS SUMMARY | 2025-03-04 09:20 | XMS_ITS | Clinical Summary ---
Author Organization 175 [facility] Address [address] [place] [address] Phone Care Team Providers Care Electric Motor Assembler And Tester Name Role Phone Salvaotre Gramajo MD Primary Care Provider Allergies Active [...] UNITS (0.3 ML) SUBCUTANEOUSLY DAILY 5 Active polyethylene glycol (Golytely) 236-22.74-6.74 -5.86 gram solution Take 4L by mouth once for one dose. May substitue any PEG. Starting at 2PM the day before your procedure drink 1 8oz glasses at your own pace until you complete half of the gallon. Finish 2nd half of the gallon at 8PM. 4000 mL 5 Active bisacodyL (DULCOLAX) 5 mg EC tablet Take 2 tablets by mouth right before beginning bowel prep. See instructions provided by the office 2 tablet 5 Active Social History Tobacco Use Types Packs/Day Years [...] Info) Description 03/16/2025 9:30 AM EST Appointment [facility] Endoscopy [address] [place] [phone] Karl Johansen MD [address] [address] Health Maintenance Due Date Last Done Comments [...] Assessment 2024 Depression Screening 04/09/2024 COVID-19 Vaccine ( - 2024-2 6 season) 2024 Influenza Vaccine [...] Diagnosed Date Autogenerated Problem 01/07/2025 Insurance MEDICARE [facility] Care Teams Electric Motor Assembler And Tester Relationship Specialty Start Date End Date Salvatore Gramajo MD [address] [place] [address] [place] [address] PCP - General Internal Medicine 11/26/24
--- OUTSIDE RECORDS SUMMARY | 2025-03-04 09:20 | XMS_ITS | Patient Health Record ---
Author Organization [facility] Address [address] [place] [address] Care Team Providers Care Dealer Compliance Representative Name Role Phone Steve Tenorio MD Primary Care Provider Nicholas Frausto Unavailable [phone] Reason For Referral No Information Medications Medication [...] Status W/U Status Risk Notes Problem Onychomycosis (268190659) Onychomycosis (110.1) Active confirmed Problem Pain in limb (19453152) Pain in Limb (729.5) Active confirmed Plan Of Treatment No Information Insurance Providers Payer Name Payer Address Payer Phone Subscriber Number Group Number Insured Name Patient Relationship to Insured Coverage Start Date Coverage End Date [facility] [address] [place] [id number] Vangie Good Self - patient is the insured Medical (General) History Medical History History ICD Code cancer diverticulosis reflux chicken pox Surgical History Surgery Date(Month/Year) lumpectomy 1999 hernia 2004 oopherectomy 2001 hysterectomy 1992
== END ==
LOC: HO.CARD 08:52
PROVIDERS: PCP Internal Medicine; Visit Provider Internal Medicine
DX: E11.9 Type 2 diabetes mellitus without complications (principal); R07.89 Other chest pain; E78.00 Pure hypercholesterolemia, unspecified; Z79.4 Long term (current) use of insulin
CPT/HCPCS: 93306

== ENCOUNTER → 2025-03-04 08:55 | Outpatient (BNV) | payer MEDICARE, SELFPAY | PROVIDERS: PCP Internal Medicine; Visit Provider Internal Medicine | DX: R07.89 Other chest pain (principal) | CPT/HCPCS: 93306 ==

== ENCOUNTER → 2025-03-12 08:57 | Outpatient (REF) | payer MEDICARE, SELFPAY ==
--- NOTE | 2025-03-12 09:06 | CA_ITS ---
Acquisition Time: 2025-03-12 09:35:17 Total Exercise Time: 00:05:00 Test Indications: CHEST PAIN Medications: Insulin METFORMIN Protocol: KARINA Max HR: 131 BPM 84% of Pred: 155 BPM Max BP: 140/80 mmHG Max Work Load: 6.3 METS Exercise stress test with exercise 5 mins of Karina Protocol at a reduced speed of 2.3mph, achiecing 84% MPHR, with reports of 4/10 left sided chest tightness radiating into the back, reports of SOB, without ant arrythmias, with normotensive response to exercise. Without any EKG changes meeting criteria for ischemia. In recovery, chest tightness resolved and breathing improved tpo baseline. Would recommend nuclear stress test for further evaluation. Test reviewed with Dr. Suarez. Referred By: Salvatore Gramajo Electronically Signed By: Lamont Wick
--- OUTSIDE RECORDS SUMMARY | 2025-03-12 09:41 | XMS_ITS | Clinical Summary ---
Author Organization 175 [facility] Address [address] [place] [address] Phone Care Team Providers Care Academic Affairs Assistant Name Role Phone Salvatore Gramajo MD Primary [...] by the office 2 tablet 5 Active sodium,potassi um,mag sulfates (Suprep Bowel Prep Kit) 17.5-3.13-1.6 gram recon soln bowel prep kit oral solution Take 177ML by mouth for 2 doses. SEE INSTRUCTIONS PROVIDED BY OFFICE. 1 kit 5 Active Encounters Date Type Department Care Team Description 03/04/2025 Telephone Gastroenterology - [address] [phone] Karl Johansen MD from Last 3 Months Social History [...] Contact Info) Description 03/16/2025 9:30 AM EST Hospital Encounter [facility] Endoscopy [address] [place] [phone] Karl Johansen MD [address] [address] Health Maintenance Due Date Last Done Comments [...] Depression Screening 04/09/2024 COVID-19 Vaccine (1 - 2025-2 6 season) 2024 Influenza Vaccine (#1) 2024 [...] AM EDT) Anatomical Region Laterality Modality Endoscopy us Historical Provider GI~PROCEDURE ORDERABLES F inal Result from Last 3 Months or Most Recently Relevant to Health Maintenance Additional Health Concerns Active Problems Noted Date Diagnosed Date Autogenerated Problem 01/07/2025 Insurance MEDICARE [facility] Care Teams Academic Affairs Assistant Relationship Specialty Start Date End Date Salvatore Gramajo MD [address] [place] [address] [address] [place], [place] PCP - General Internal Medicine 11/26/24
--- OUTSIDE RECORDS SUMMARY | 2025-03-12 09:41 | XMS_ITS | Patient Health Record ---
Author Organization [facility] Address [address] [place] [address] Care Team Providers Care Straight Knife Machine Cutter Name Role Phone Steve Tenorio MD Primary Care Provider Nicholas Frausto Unavailable [phone] Reason For Referral No Information Medications Medication [...] Status W/U Status Risk Notes Problem Onychomycosis (807681574) Onychomycosis (110.1) Active confirmed Problem Pain in limb (64991164) Pain in Limb (729.5) Active confirmed Plan Of Treatment No Information Insurance Providers Payer Name Payer Address Payer Phone Subscriber Number Group Number Insured Name Patient Relationship to Insured Coverage Start Date Coverage End Date [facility] [address] [place] [id number] Vangie Good Self - patient is the insured Medical (General) History Medical History History ICD Code cancer diverticulosis reflux chicken pox Surgical History Surgery Date(Month/Year) lumpectomy 1999 hernia 2004 oopherectomy 2001 hysterectomy 1992
== END ==
LOC: HO.CARD 08:57
PROVIDERS: PCP Internal Medicine; Visit Provider Internal Medicine
DX: R09.89 Other specified symptoms and signs involving the circulatory and respiratory systems (principal); E11.9 Type 2 diabetes mellitus without complications; R07.9 Chest pain, unspecified; E78.00 Pure hypercholesterolemia, unspecified; Z79.4 Long term (current) use of insulin; Z79.84 Long term (current) use of oral hypoglycemic drugs
CPT/HCPCS: 93017

== ENCOUNTER → 2025-03-12 09:06 | Outpatient (BNV) | payer MEDICARE, SELFPAY | PROVIDERS: PCP Internal Medicine | DX: R07.89 Other chest pain (principal); R06.02 Shortness of breath | CPT/HCPCS: 93016; 93018 ==